=== PATIENT | female | born 1985 | race Caucasian/White ===

== ENCOUNTER 2025-01-05 17:32 | Inpatient (IN) | payer BC, SELFPAY ==
--- OUTSIDE RECORDS SUMMARY | 2012-01-14 07:30 | XMS_ITS | Encounter Summary ---
Author Organization [facility] Address [address], [address] [place] [address] Care Team Providers Care Paper Cone Machine Operator Name Role Phone Unavailable Primary Care Provider Unavailabl e Encounter Details Date Type Department Care Team (Late st Contact Info) Description 01/14/2012 7:30 AM EDT Hospital Encounter [facility] [address] [phone] Ismael Castle MD 27 [facility] [address] [place] [phone] Social History Tobacco Use Types Packs/Day Years [...]
--- OUTSIDE RECORDS SUMMARY | 2025-01-05 18:10 | XMS_ITS | Clinical Summary ---
Author Organization [facility] Address [address], [address] [place] [address] Care Team Providers Care Electrical Prospecting Operator Name Role Phone Unavailable Primary Care Provider Unavailabl e Allergies No known active allergies Medications Vit-Fe Fumarate-FA ( MULTIVITAMIN) 27-1 MG TABS tablet Take 1 tablet by mouth daily. Active docusate sodium 100 MG CAPS Take 100 mg by mouth 2 times daily as needed for Constipatio n. 30 capsule 0 04/12/2012 Active ibuprofen (ADVIL;MOTRIN) 600 MG tablet Take 1 tablet by mouth every 6 hours as needed for Pain (For mild pain level 1-3). 120 tablet 0 04/12/2012 Active ferrous sulfate 325 (65 FE) MG tabletIndication s:Routine follow-up Take 325 mg by mouth daily (with breakfast). Active Active Problems Problem Noted Date Diagnosed Date Routine follow-up 05/20/2012 Immunizations Immunization Administration Dates Next Due Influenza Virus Vaccine 04/11/2012 TDaP, ADACEL (age 10y-64y), BOOSTRIX (age 10y+), IM, 0.5mL 04/12/2012 Family History Medical History Relation Name Comments Heart Disease Father Cancer Maternal Grandfather Cancer Maternal Grandmother Diabetes Maternal Grandmother Relation Name Status Comments Father Maternal Grandfather Maternal Grandmother Social History Tobacco Use Types Packs/Day Years Used Date Smoking Tobacco: Former Cigarettes 0.3 6 Smokeless Tobacco: Never Tobacco Cessation:Ready to Q uit: No; Counseling Given: No Alcohol Use Standard Drinks/Week Comments No 0 (1 standard drink = 0.6 oz pur e alcohol) Comments No Sex and Gender Information Value Date Recorded Sex Assigned at Not on file Legal Sex Female 12:26 PM EST Gender Identity Not on file Sexual Orientation Not on file Last Filed Vital Signs Vital Sign Reading Time Taken Comments Blood Pressure 122/80 05/20/2012 3:40 PM EST Pulse 89 04/12/2012 12:30 PM EST Temperature 36.7 C (98 F) 04/12/2012 12:30 PM EST Respiratory Rate 18 04/12/2012 12:30 PM EST Oxygen Saturation 96% 04/09/2012 12:37 PM EST Inhaled Oxygen Concentration - - Weight 120.2 kg (265 lb) 05/20/2012 3:40 PM EST Height 165.1 cm (5' 5 ) 05/20/2012 3:40 PM EST Body Mass Index 44.1 05/20/2012 3:40 PM EST Plan of Treatment Not on file Advance Directives * Full Code (Latest Code Status on File) Date Activated Date Inactivated Comments 04/09/2012 12:29 PM 04/12/2012 6:06 PM * Full Code Date Activated Date Inactivated Comments 04/09/2012 6:47 AM 04/09/2012 12:29 PM
--- OUTSIDE RECORDS SUMMARY | 2025-01-05 18:10 | XMS_ITS | Patient Health Record ---
Author Organization [facility] [place] Address [address] [place] [address] Care Team Providers Care Nutritionist Public Health Name Role Phone Cheyanne Timmons Primary Care Provider Allergies Allergen (clinical drug ingredient) Drug/Non Drug Allergy documented on EMR Reaction Allergy Type Onset Date Status chlorhexidine Chlorhexidine Gluconate hives Drug Allergy Active Reason For Referral No Information Medications Medication SIG (Take, Route, Frequency, Duration) Notes Start Date End Date Status Ondansetron HCl 4 MG 1 tablet Orally BID prn; Duration: 10 days 02/24/2024 Active FLUoxetine HCl 40 MG TAKE 1 CAPSULE BY M OUTH EVERY DAY FOR 90 DAYS; Duration: 30 Active Omeprazole 40 MG TAKE 1 CAPSULE BY MO UTH 30 MINUTES BEFORE MORNING MEAL EVERY DAY FOR 30 DAYS; Duration: 30 Active Excedrin Migraine 250-250-65 MG 2 tablets Orally Once a day Active Amitriptyline HCl 25 MG TAKE 1 TABLET BY MOUTH EVERY DAY AT BEDTIME FOR 30 DAYS; Duration: 30 Active Melatonin 5 MG 2 tablet in the even ing Orally at bedtime Active Social History Tobacco Use: Social History Observation Description Date Details (start date - stop date) Current Smoker 08/07/2005 - NA Tobacco Use/Smoking Question Answer Notes Patient is a current smoker When did you start smoking? 08/07/2005 How often do you smoke cigarettes? every day How many cigarettes a day do you smoke? 6-10 How soon after you wake up do you smoke your fir st cigarette? 6-30 minutes Are you interested in quitting? Not ready to shayan t Alcohol Screen (Audit-C) Question Answer Notes Did you have a drink containing alcohol in the p ast year? No Points 0 Interpretation Negative AUDIT-C (Standard) Question Answer Notes Did you have a drink containing alcohol in the p ast year? No Points 0 Interpretation Negative Problems Problem Type SNOMED Code ICD Code Onset Dates Problem Status W/U Status Risk Notes Problem Nervous system and sense organ diseases (185947225) Personal history of other diseases of the nervous system and sense organs (Z86.69) Active confirmed Problem Obesity (160822193) Obesity (E66.9) Active confirmed Problem Anxiety (38305931) Anxiety (F41.9) Active confirmed Problem Arthritis (3496697) Arthritis (M19.90) Active confirmed Problem Depression (960780155) Depression (F32.9) Active confirmed Problem Insomnia (728215832) Insomnia (G47.00) Active confirmed Problem Migraine (18830988) Migraine (G43.909) Active confirmed Problem Acute sinusitis (84670416) Acute sinusitis (J01.90) Active confirmed Problem Current smoker (60012377) Current smoker (F17.200) Active confirmed Problem Restless legs (80387092) Restless legs (G25.81) Active confirmed Problem Irregular heart beat (512183948) Irregular heart beat (I49.9) Active confirmed Problem Body mass index 40+ - morbidly obese (270389057) BMI 60.0-69.9, adult (Z68.44) Active confirmed Problem Annual wellness visit (652129130211586 ) Wellness examination (Z00.00) Active confirmed Problem Gastro-esophagea l reflux disease (400418262) Gastro-esophage al reflux disease (K21.9) Active confirmed Problem Disease caused by Severe acute respiratory syndrome coronavirus 2 (disorder) (652680062) COVID-19 virus infection (U07.1) Active confirmed Problem Low back pain (878083746) Low back pain, unspecified (M54.50) Active confirmed Vital Signs Blood pressure diastolic 78 mm Hg 02/24/2024 Height 65 in 02/24/2024 Blood pressure systolic 130 mm Hg 02/24/2024 Weight 428.4 lbs 02/24/2024 BMI 71.28 kg/m2 02/24/2024 Encounters Encounter Location Date Provider Diagnosis [facility] [address] [place] [address] 02/24/2024 Cheyanne Timmons Migraine G43.909 [facility] [address] [place] [address] 02/24/2024 Cheyanne Timmons Wellness examination Z00.00 [facility] [address] [place] [address] 02/26/2024 Cheyanne Timmons Assessments Encounter Date Diagnosis (ICD Code) Assessment Notes Treatment Notes Treatment Clinical Notes Section Notes 02/24/2024 Migraine (ICD-10 - G43.909) Toradol and Norflex IM samples Nurtec if meds not helping, fu , discussed imaging 02/24/2024 Wellness examination (ICD-10 - Z00.00) Plan Of Treatment Pending Test Test Name Order Date CMP (COMPLETE METABOLIC PANEL) 4 HEMOGLOBIN A1C (GLYCO) 02/24/2024 INSULIN, TOTAL 02/24/2024 LIPID PANEL (CHOL/TRIG/HDL/LDL) 02/24/20 24 CBC WITH DIFF 02/24/2024 THYROID PANEL (T4/TSH/FREE T3) 4 Insurance Providers Payer Name Payer Address Payer Phone Subscriber Number Group Number Insured Name Patient Relationship to Insured Coverage Start Date Coverage End Date [employer] PPO PLUS LOCAL PLAN [address] [place] [address] [id number] Tejinder Zee Spouse - patient is the spouse of the insured Medications Administered Medication Instructions Date of Administration Dosage Notes Ketorolac Tromethamine 02/24/2024 60 mg Orphenadrine Citrate 02/24/2024 60 mg Medical (General) History Medical History History ICD Code Obesity E66.9 Irregular heart beat I49.9 BMI 60.0-69.9, adult Z68.44 Restless legs G25.81 COVID-19 virus infection U07.1 Insomnia G47.00 Gastro-esophageal reflux disease K21.9 Migraine G43.909 Wellness examination Z00.00 Low back pain, unspecified M54.50 Personal history of other diseases of th e nervous system and sense organs Z86.69 Arthritis M19.90 Depression F32.9 Anxiety F41.9 Current smoker F17.200 Surgical History Surgery Date(Month/Year) gallbladder removal tonsillectomy x2
[2025-01-05 18:13] VITALS: BP 126/84; PULSE 122; TEMP 36.8; O2SAT 98; BMI 70.7
--- NOTE | 2025-01-05 21:25 | XR_ITS ---
The [address] [address] Patient Name: TUCKER KIM MRN: [id number] date: 1985 Sex: F Assigned Patient Location: ER Current Patient Location: ER Accession/Order Number: [id number] Exam Date: 01/05/2025 21:48 Report Date: 01/05/2025 22:01 At the request of: SARAH DOUGLASS Procedure: XR tibia fibula LT 2V XR tibia fibula LT 2V 01/05/2025 9:55 PM SIGNS AND SYMPTOMS: ^Cellulitis, leg pain PROTOCOL: Frontal and lateral radiograph of the left tibia and fibula COMPARISON: None FINDINGS: There is mild narrowing of the medial weightbearing joint space. There is no fracture or dislocation. There is diffuse soft tissue swelling of the left leg. XR/XR tibia fibula LT 2V IMPRESSION: There is diffuse soft tissue swelling of the left leg consistent with a history of sinusitis. No radiographic evidence of ostomy myelitis. Impression dictated by: Bran Mcgarry M.D. 01/05/2025 10:01 PM Dictation Location: [place] [address] Electronically authenticated by: [id number] Y Date: 01/05/2025 22:01
[2025-01-05 21:39] VITALS: BP 139/97; PULSE 136; O2SAT 99
[2025-01-05 21:40] VITALS: O2SAT 99
--- NOTE | 2025-01-05 21:41 | PC.NURSE ---
LLE red with swelling and warm to the touch
--- NOTE | 2025-01-05 21:46 | ED.GENADUL1 ---
Documented by User: RAFAT Flores 01/05/25 23:40 HPI HPI - General Adult General Chief complaint: Extremity Problem, Nontraumatic Stated complaint: INFECTION IN LEFT LEG Time Seen by Provider: 01/05/25 18:24 Source: patient History of Present Illness HPI narrative: Patient is a 39-year-old female with a PMH of depression and migraines that presents to the emergency department with complaints of left leg pain and swelling that started around her ankle yesterday and has now traveled up her posterior calf, but just below her knee. She states that she has been feeling feverish and having cold sweats, but her thermometer has not worked to check her temperature. She denies any trauma to the leg. Related Data Home Medications ?Medication ?Instructions ?Recorded ?Confirmed amitriptyline 25 mg tablet 25 mg PO BEDTIME 01/05/25 01/05/25 fluoxetine 40 mg capsule 40 mg PO DAILY 01/05/25 01/05/25 omeprazole 40 mg capsule,delayed 40 mg PO DAILY 01/05/25 01/05/25 release Allergies Allergy/AdvReac Type Severity Reaction Status Date / Time chlorhexidine Allergy Severe Hives Verified 01/05/25 18:18 Opioid HPI Opioid Management Most Recent Opioid Data: Last ORT Total Score 1 01/05/25, 23:13 Last ORT Risk Category Low Risk 01/05/25, 23:13 Review of Systems ROS Status of ROS 10 or more systems reviewed and unremarkable except as noted in history and below PFSH PFSH Surgical History (Updated 01/05/25 @ 23:10 by Natalia Aranda) History of ?Z98.891 - History of uterine scar from previous surgery (ICD-10) Family History (Updated 01/05/25 @ 23:11 by Natalia Aranda) Other Family history of CHF (congestive heart failure) Family history of COPD (chronic obstructive pulmonary disease) Family history of hypertension Family history of myocardial infarction Social History (Updated 01/05/25 @ 23:12 by Natalia Aranda) Within the past year, how often did you have a drink containing alcohol: never Score interpretation: A score less than 3 is consistent with normal alcohol consumption. 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 Are you now , , , , never or living with a partner: In a typical week, how many times do you talk on the telephone with family, friends, or neighbors: 3 or more times per week How often do you get together with friends or relatives: 3 or more times per week Little interest or pleasure in doing things: not at all Feeling down, depressed, or hopeless: not at all Feel stressed/tense/nervous/anxious/difficulty sleeping: not at all Do you think of yourself as: straight/heterosexual Gender Identity: female Exam Narrative Exam Narrative: General: No distress, age-appropriate Skin: Warm, dry, no pallor. No rash. See below musculoskeletal, edema and erythema left lower extremity Head: Normocephalic, atraumatic. Neck: Supple, non-tender. Eye: Pupils are equal, round and EOMI. No scleral icterus. Ears, Nose, Mouth, and Throat: No nasal mucosal hypertrophy. Oral mucosa is moist, no posterior oropharynx erythema, uvula is mid-line Cardiovascular: Regular Rate and Rhythm without murmur, gallop or rub. Respiratory: No accessory muscle use or respiratory distress. Lungs are clear to auscultation, no wheezing, rales or rhonchi Chest Wall: no tenderness Back: No midline thoracic or lumbar vertebral tenderness. Musculoskeletal: Full ROM of all extremities, left leg edema and erythema starting at midfoot and extending up to just inferior to the knee. Scattered blisters noted. None appear open or draining. No pitting edema. GI: Abdomen is soft, non-distended, non tender to palpation. No masses appreciated. No rebound, guarding, or rigidity noted. Neurological: A&O x4. No cranial nerve dysfunction observed. No truncal ataxia. Moves all extremities. Sensation intact. Psychiatric: Cooperative and interactive. Normal mood and affect. Constitutional Vital Signs, click to edit/add: Last Vital Signs Temp 99.1 F 01/05/25 23:13 Pulse 117 H 01/05/25 23:13 Resp 20 01/05/25 23:26 BP 128/85 01/05/25 23:13 Pulse Ox 96 01/05/25 23:13 O2 Del Method Room Air 01/05/25 23:26 Course Vital Signs Vital signs: Vital Signs Temperature 98.3 F 01/05/25 18:13 Pulse Rate 122 H 01/05/25 18:13 Respiratory Rate 24 H 01/05/25 18:13 Blood Pressure 126/84 01/05/25 18:13 Pulse Oximetry 98 01/05/25 18:13 Oxygen Delivery Method Room Air 01/05/25 18:13 Temperature 99.1 F 01/05/25 23:13 Pulse Rate 117 H 01/05/25 23:13 Respiratory Rate 20 01/05/25 23:26 Blood Pressure 128/85 01/05/25 23:13 Pulse Oximetry 96 01/05/25 23:13 Oxygen Delivery Method Room Air 01/05/25 23:26 Medical Decision Making MDM Narrative Medical decision making narrative: This is a 39-year-old female that presents with complaints of left leg pain, swelling, and redness that started yesterday. She started feeling feverish and having cold sweats and then started to notice some redness/swelling around her foot and ankle that today has now extended up past her calf and just below her knee. Her BP is hypertensive on arrival, she is tachycardic in the 120s. Respirations in the mid 20s. Percent O2 saturation on room air. Afebrile. Differential diagnosis includes DVT, cellulitis, necrotizing fasciitis, lymphedema. IV placed on arrival. 2 L normal saline wide open ordered. WBC 17.5. Ultrasound left lower extremity negative for DVT. IV Vanco ordered. X-ray left tib-fib ordered to evaluate for any gas. BMP, lactate pending. Blood cultures ordered. I did speak with patient about her condition and recommended admission for IV antibiotics and monitoring. Patient agreeable. Dr. Bryant did speak with Dr. Banks for admission for continued IV antibiotics and monitoring and he did accept patient. Lab Data Labs: Lab Results 01/05/25 01/05/25 Range/Units 21:35 21:48 WBC 17.5 H (4.0-11.0) 10^3/uL RBC 4.87 (4.20-5.40) 10^6/uL Hgb 12.6 (12.0-16.0) g/dL Hct 38.6 (36.0-48.0) % MCV 79.3 L (81.0-99.0) fL MCH 25.9 L (26.7-34.0) pg MCHC 32.6 (29.9-35.2) g/dL RDW 15.8 H (11.0-15.0) % Plt Count 210 (150-450) 10^3/uL MPV 9.7 (9.5-13.5) fL Neut % (Auto) 91.1 H (43.0-75.0) % Lymph % (Auto) 5.8 L (20.5-60.0) % [place] % (Auto) 2.5 (1.7-12.0) % Eos % (Auto) 0.0 L (0.9-7.0) % Baso % (Auto) 0.2 (0.2-2.0) % Neut # (Auto) 16.0 H (1.4-6.5) 10^3/uL Lymph # (Auto) 1.0 L (1.2-3.8) 10^3/uL [place] # (Auto) 0.4 (0.3-0.8) 10^3/uL Eos # (Auto) 0.0 (0.0-0.7) 10^3/uL Baso # (Auto) 0.0 (0.0-0.1) 10^3/uL Abs Immat Gran (auto) 0.07 H (0.00-0.03) 10^3/uL Imm/Tot Granulo (auto) 0.4 (0.0-0.5) % Sodium 135 L (136-145) mmol/L Potassium 3.4 L (3.5-5.1) mmol/L Chloride 97 L (98-107) mmol/L Carbon Dioxide 24.6 (21.0-32.0) mmol/L Anion Gap 16.8 BUN 12.0 (7.0-18.0) mg/dL Creatinine 1.18 H (0.55-1.02) mg/dL Est GFR ( Amer) >60 (>=60 mL/min/1.73m^2) Est GFR (Non-Af Amer) 51 L (>=60 mL/min/1.73m^2) BUN/Creatinine Ratio 10.2 Glucose 118 H (74-106) mg/dL Lactate 4.9 H* (0.4-2.0) mmol/L Calcium 8.8 (8.5-10.1) mg/dL Total Bilirubin 0.7 (0.2-1.0) mg/dL AST 29 (15-37) U/L ALT 43 (14-59) U/L Alkaline Phosphatase 90 (46-116) U/L Total Protein 8.2 (6.4-8.2) g/dL Albumin 3.2 L (3.4-5.0) g/dL Globulin 5.0 g/dL Albumin/Globulin Ratio 0.6 Serum HCG, Qual Negative (NEGATIVE) Imaging Data X-Ray Tib/Fib: Attestation: I have reviewed the pertinent imaging results. Radiologist's impression: ITS Impressions Tibia/Fibula X-Ray 01/05/25 21:25 IMPRESSION: There is diffuse soft tissue swelling of the left leg consistent with a history of sinusitis. No radiographic evidence of ostomy myelitis. Impression dictated by: Bran Mcgarry M.D. 01/05/2025 10:01 PM Dictation Location: [place] [address] Electronically authenticated by: [id number] Y Date: 01/05/2025 22:01 Discharge Plan Discharge Chief Complaint: Extremity Problem, Nontraumatic Clinical Impression: Cellulitis Patient Disposition: Admitted As Inpatient Time of Disposition Decision: 22:18 Condition: Fair Discharge Date/Time: 01/05/25 23:00 Documented by User: Benoit Bryant DO 01/06/25 00:40 HPI HPI - General Adult General Chief complaint: Extremity Problem, Nontraumatic Stated complaint: INFECTION IN LEFT LEG Time Seen by Provider: 01/05/25 18:24 Related Data Home Medications ?Medication ?Instructions ?Recorded ?Confirmed amitriptyline 25 mg tablet 25 mg PO BEDTIME 01/05/25 01/05/25 fluoxetine 40 mg capsule 40 mg PO DAILY 01/05/25 01/05/25 omeprazole 40 mg capsule,delayed 40 mg PO DAILY 01/05/25 01/05/25 release Allergies Allergy/AdvReac Type Severity Reaction Status Date / Time chlorhexidine Allergy Severe Hives Verified 01/05/25 18:18 Opioid HPI Opioid Management Most Recent Opioid Data: Last ORT Total Score 1 01/05/25, 23:13 Last ORT Risk Category Low Risk 01/05/25, 23:13 PFSH PFS Surgical History (Updated 01/05/25 @ 23:10 by Natalia Aranda) History of ?Z98.891 - History of uterine scar from previous surgery (ICD-10) Family History (Updated 01/05/25 @ 23:11 by Natalia Aranda) Other Family history of CHF (congestive heart failure) Family history of COPD (chronic obstructive pulmonary disease) Family history of hypertension Family history of myocardial infarction Social History (Updated 01/05/25 @ 23:12 by Natalia Aranda) Within the past year, how often did you have a drink containing alcohol: never Score interpretation: A score less than 3 is consistent with normal alcohol consumption. 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 Are you now , , , , never or living with a partner: In a typical week, how many times do you talk on the telephone with family, friends, or neighbors: 3 or more times per week How often do you get together with friends or relatives: 3 or more times per week Little interest or pleasure in doing things: not at all Feeling down, depressed, or hopeless: not at all Feel stressed/tense/nervous/anxious/difficulty sleeping: not at all Do you think of yourself as: straight/heterosexual Gender Identity: female Exam Constitutional Vital Signs, click to edit/add: Last Vital Signs Temp 99.1 F 01/05/25 23:13 Pulse 117 H 01/05/25 23:13 Resp 20 01/05/25 23:26 BP 128/85 01/05/25 23:13 Pulse Ox 96 01/05/25 23:13 O2 Del Method Room Air 01/05/25 23:26 Course Vital Signs Vital signs: Vital Signs Temperature 98.3 F 01/05/25 18:13 Pulse Rate 122 H 01/05/25 18:13 Respiratory Rate 24 H 01/05/25 18:13 Blood Pressure 126/84 01/05/25 18:13 Pulse Oximetry 98 01/05/25 18:13 Oxygen Delivery Method Room Air 01/05/25 18:13 Temperature 99.1 F 01/05/25 23:13 Pulse Rate 117 H 01/05/25 23:13 Respiratory Rate 20 01/05/25 23:26 Blood Pressure 128/85 01/05/25 23:13 Pulse Oximetry 96 01/05/25 23:13 Oxygen Delivery Method Room Air 01/05/25 23:26 Medical Decision Making MDM Narrative Medical decision making narrative: This is a 39-year-old female that presents with complaints of left leg pain, swelling, and redness that started yesterday. She started feeling feverish and having cold sweats and then started to notice some redness/swelling around her foot and ankle that today has now extended up past her calf and just below her knee. Her BP is hypertensive on arrival, she is tachycardic in the 120s. Respirations in the mid 20s. Percent O2 saturation on room air. Afebrile. Differential diagnosis includes DVT, cellulitis, necrotizing fasciitis, lymphedema. IV placed on arrival. 2 L normal saline wide open ordered. WBC 17.5. Ultrasound left lower extremity negative for DVT. IV Vanco ordered. X-ray left tib-fib ordered to evaluate for any gas. BMP, lactate pending. Blood cultures ordered. I did speak with patient about her condition and recommended admission for IV antibiotics and monitoring. Patient agreeable. Dr. Bryant did speak with Dr. Banks for admission for continued IV antibiotics and monitoring and he did accept patient. ATTENDING ADDENDUM, Dr. Bryant: Patient presents with acute onset of atraumatic left lower extremity erythema, edema, and tenderness. Initially started with her left ankle and is quickly spread to involve the entire distal left lower extremity. Patient presents tachycardic with flulike symptoms. Laboratory studies were obtained which were significant for leukocytosis with a white count of 17 and lactic acidosis of 4.9. For concerns of sepsis, she was empirically treated with IV vancomycin and given 2L bolus normal saline. Blood cultures were sent off. X-rays of the left tib-fib demonstrated no evidence of gas/free air to suggest necrotizing fasciitis. I discussed the patient with Dr. Banks who accepted the admission. Medical Records Medical records reviewed: Yes I reviewed the patient's medical records Lab Data Lab results reviewed: Yes I reviewed the patient's lab results Labs: Lab Results 01/05/25 01/05/25 Range/Units 21:35 21:48 WBC 17.5 H (4.0-11.0) 10^3/uL RBC 4.87 (4.20-5.40) 10^6/uL Hgb 12.6 (12.0-16.0) g/dL Hct 38.6 (36.0-48.0) % MCV 79.3 L (81.0-99.0) fL MCH 25.9 L (26.7-34.0) pg MCHC 32.6 (29.9-35.2) g/dL RDW 15.8 H (11.0-15.0) % Plt Count 210 (150-450) 10^3/uL MPV 9.7 (9.5-13.5) fL Neut % (Auto) 91.1 H (43.0-75.0) % Lymph % (Auto) 5.8 L (20.5-60.0) % [place] % (Auto) 2.5 (1.7-12.0) % Eos % (Auto) 0.0 L (0.9-7.0) % Baso % (Auto) 0.2 (0.2-2.0) % Neut # (Auto) 16.0 H (1.4-6.5) 10^3/uL Lymph # (Auto) 1.0 L (1.2-3.8) 10^3/uL [place] # (Auto) 0.4 (0.3-0.8) 10^3/uL Eos # (Auto) 0.0 (0.0-0.7) 10^3/uL Baso # (Auto) 0.0 (0.0-0.1) 10^3/uL Abs Immat Gran (auto) 0.07 H (0.00-0.03) 10^3/uL Imm/Tot Granulo (auto) 0.4 (0.0-0.5) % Sodium 135 L (136-145) mmol/L Potassium 3.4 L (3.5-5.1) mmol/L Chloride 97 L (98-107) mmol/L Carbon Dioxide 24.6 (21.0-32.0) mmol/L Anion Gap 16.8 BUN 12.0 (7.0-18.0) mg/dL Creatinine 1.18 H (0.55-1.02) mg/dL Est GFR ( Amer) >60 (>=60 mL/min/1.73m^2) Est GFR (Non-Af Amer) 51 L (>=60 mL/min/1.73m^2) BUN/Creatinine Ratio 10.2 Glucose 118 H (74-106) mg/dL Lactate 4.9 H* (0.4-2.0) mmol/L Calcium 8.8 (8.5-10.1) mg/dL Total Bilirubin 0.7 (0.2-1.0) mg/dL AST 29 (15-37) U/L ALT 43 (14-59) U/L Alkaline Phosphatase 90 (46-116) U/L Total Protein 8.2 (6.4-8.2) g/dL Albumin 3.2 L (3.4-5.0) g/dL Globulin 5.0 g/dL Albumin/Globulin Ratio 0.6 Serum HCG, Qual Negative (NEGATIVE) Imaging Data X-Ray Tib/Fib: Radiologist's impression: ITS Impressions Tibia/Fibula X-Ray 01/05/25 21:25 IMPRESSION: There is diffuse soft tissue swelling of the left leg consistent with a history of sinusitis. No radiographic evidence of ostomy myelitis. Impression dictated by: Bran Mcgarry M.D. 01/05/2025 10:01 PM [facility] Electron[facility] authentic[facility] by: [id number] Y Date: 01/05/2025 22:01 Discharge Plan Discharge Chief Complaint: Extremity Problem, Nontraumatic Clinical Impression: Cellulitis Patient Disposition: Admitted As Inpatient Time of Disposition Decision: 22:18 Condition: Fair Discharge Date/Time: 01/05/25 23:00
[2025-01-05 21:55] LABS: Hematocrit 38.6 % (36.0-48.0); Hemoglobin 12.6 g/dL (12.0-16.0); Immature Granulocytes Abs Auto 0.07 10^3/uL (0.00-0.03); Immature Granulocytes Pct Auto 0.4 % (0.0-0.5); Lymphocytes Absolute Auto 1.0 10^3/uL (1.2-3.8); Mean Corpuscular HGB Conc 32.6 g/dL (29.9-35.2); Mean Corpuscular Hemoglobin 25.9 pg (26.7-34.0); Mean Corpuscular Volume 79.3 fL (81.0-99.0); Platelet Count 210 10^3/uL (150-450); Red Blood Count 4.87 10^6/uL (4.20-5.40); White Blood Count 17.5 10^3/uL (4.0-11.0)
[2025-01-05 22:06] LABS: Alanine Aminotransferase 43 U/L (14-59); Albumin Globulin Ratio 0.6; Albumin Level 3.2 g/dL (3.4-5.0); Alkaline Phosphatase 90 U/L (46-116); Anion Gap 16.8; Aspartate Amino Transferase 29 U/L (15-37); Blood Urea Nitrogen 12.0 mg/dL (7.0-18.0); Calcium 8.8 mg/dL (8.5-10.1); Carbon Dioxide 24.6 mmol/L (21.0-32.0); Chloride 97 mmol/L (98-107); Estimated GFR (African America >60 (>=60 mL/min/1.73m^2); Estimated GFR (Non-African Ame 51 (>=60 mL/min/1.73m^2); Globulin 5.0 g/dL; Glucose 118 mg/dL (74-106); Potassium 3.4 mmol/L (3.5-5.1); Sodium 135 mmol/L (136-145); Total Protein 8.2 g/dL (6.4-8.2)
[2025-01-05] MEDS: 0.9 % SODIUM CHLORIDE 1,000 ML 2000 ML IV (22:13)
[2025-01-05] MEDS: HYDROMORPHONE HCL 1 MG/ML CARTRIDGE IV (22:13)
[2025-01-05 22:20] LABS: Lactate/Lactic Acid 4.9 mmol/L (0.4-2.0)
[2025-01-05] MEDS: VANCOMYCIN HCL 2,000 MG in 0.9 % SODIUM CHLORIDE 500 ML 250 MG IV (22:22)
[2025-01-05 23:13] VITALS: BP 128/85; PULSE 117; TEMP 37.3; O2SAT 96; BMI 78.1
[2025-01-05] MEDS: ENOXAPARIN SODIUM 40 MG/0.4 ML SYRINGE SUBQ (23:46)
[2025-01-05] MEDS: AMITRIPTYLINE HCL 25 MG TABLET PO (23:46)
[2025-01-05] MEDS: ACETAMINOPHEN 325 MG TABLET 650 MG PO (23:46)
[2025-01-05] MEDS: METOPROLOL TARTRATE 25 MG TABLET PO (23:46)
[2025-01-06] VITALS (24 sets, daily range): BP systolic 103–127; BP diastolic 65–85; PULSE 95–112; TEMP 36.8–38.3; O2SAT 90–96
[2025-01-06 01:06] LABS: Lactate/Lactic Acid 1.4 mmol/L (0.4-2.0)
[2025-01-06] MEDS: KETOROLAC TROMETHAMINE 30 MG/ML VIAL 15 MG IVP (05:05)
[2025-01-06 05:20] LABS: Hematocrit 36.5 % (36.0-48.0); Hemoglobin 11.8 g/dL (12.0-16.0); Mean Corpuscular HGB Conc 32.3 g/dL (29.9-35.2); Mean Corpuscular Hemoglobin 25.7 pg (26.7-34.0); Mean Corpuscular Volume 79.5 fL (81.0-99.0); Platelet Count 195 10^3/uL (150-450); Red Blood Count 4.59 10^6/uL (4.20-5.40); White Blood Count 15.1 10^3/uL (4.0-11.0)
[2025-01-06 05:37] LABS: Alanine Aminotransferase 36 U/L (14-59); Albumin Globulin Ratio 0.6; Albumin Level 2.8 g/dL (3.4-5.0); Alkaline Phosphatase 85 U/L (46-116); Anion Gap 12.5; Aspartate Amino Transferase 25 U/L (15-37); Blood Urea Nitrogen 11.0 mg/dL (7.0-18.0); Calcium 8.2 mg/dL (8.5-10.1); Carbon Dioxide 26.0 mmol/L (21.0-32.0); Chloride 99 mmol/L (98-107); Estimated GFR (African America >60 (>=60 mL/min/1.73m^2); Estimated GFR (Non-African Ame >60 (>=60 mL/min/1.73m^2); Globulin 4.8 g/dL; Glucose 118 mg/dL (74-106); Potassium 3.5 mmol/L (3.5-5.1); Sodium 134 mmol/L (136-145); Total Protein 7.6 g/dL (6.4-8.2)
[2025-01-06 05:42] LABS: Lactate/Lactic Acid 0.8 mmol/L (0.4-2.0)
--- NOTE | 2025-01-06 08:00 | CM.NOTE ---
Rounds made with Dr. Banks, updated pt with plan of care and reason for admission. Pt inpatient status and will need IV antibiotic, pt verbalizes understanding.
--- NOTE | 2025-01-06 10:07 | PM.HP ---
HPI H&P: HPI History of Present Illness Chief complaint: CELLULITIS Narrative: Mrs. Zee is a 39-year-old female with no significant past medical history who came in with pain, swelling and redness involving the left leg. She was found to have sepsis manifested by high white count, fever, tachycardia and elevated blood pressure as well as elevated lactic acid. Please refer to initial sepsis workup and treatment completed in the emergency room department. Patient is feeling better. No prior history of MRSA. No chest pain palpitation. No abdominal pain, nausea or vomiting Opioid HPI Opioid Management Most Recent Pain and Opioid Data: Last Pain Scale 0 Today, 08:21 Last Pain Assessment Today, 00:48 Last ORT Total Score 1 01/05/25, 23:13 Last ORT Risk Category Low Risk 01/05/25, 23:13 PFSH PFSH Surgical History (Updated 01/05/25 @ 23:10 by Natalia Aranda) History of ?Z98.891 - History of uterine scar from previous surgery (ICD-10) Family History (Updated 01/05/25 @ 23:11 by Natalia Aranda) Other Family history of CHF (congestive heart failure) Family history of COPD (chronic obstructive pulmonary disease) Family history of hypertension Family history of myocardial infarction Social History (Updated 01/05/25 @ 23:12 by Natalia Aranda) Within the past year, how often did you have a drink containing alcohol: never Score interpretation: A score less than 3 is consistent with normal alcohol consumption. 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 Are you now , , , , never or living with a partner: In a typical week, how many times do you talk on the telephone with family, friends, or neighbors: 3 or more times per week How often do you get together with friends or relatives: 3 or more times per week Little interest or pleasure in doing things: not at all Feeling down, depressed, or hopeless: not at all Feel stressed/tense/nervous/anxious/difficulty sleeping: not at all Do you think of yourself as: straight/heterosexual Gender Identity: female Meds Home Medications and Allergies Home Medications ?Medication ?Instructions ?Recorded ?Confirmed ?Type amitriptyline 25 mg tablet 25 mg PO BEDTIME 01/05/25 01/05/25 History fluoxetine 40 mg capsule 40 mg PO DAILY 01/05/25 01/05/25 History omeprazole 40 mg capsule,delayed 40 mg PO DAILY 01/05/25 01/05/25 History release Allergies Allergy/AdvReac Type Severity Reaction Status Date / Time chlorhexidine Allergy Severe Hives Verified 01/05/25 18:18 Exam Narrative Exam Narrative: [pt is awake and alert. oriented to place, time and person, morbidly obese HEENT: [place] conjunctiva and NL buccal mucosa Neck: Supple, no tenderness Endocrine: No Thyromegaly. Vascular: No JVD or carotid bruit. Lymphatic: No cervical lymphadenopathy. Chest: CTA no DTP. Heart RRR, no extra sound or murmur. Abd: Soft, no tenderness, no rebound and no rigidity. Increase abd girth therefore clinically I could not exclude the possibility of intra abd mass or organomegaly. LE: No cyanosis or clubbing, significant swelling, erythema and induration involving the left leg from the knee down to the foot. Palpable dorsalis pedis pulse no cyanosis in her toes. No change in color Neuro: A A O. Nl speech, comprehension and attention. Nl and symetrical motor and tone examination through out. []] Constitutional Vital Signs, click to edit/add: Last Vital Signs Temp 99.4 F 01/06/25 07:53 Pulse 95 H 01/06/25 10:00 Resp 18 01/06/25 08:32 BP 110/75 01/06/25 07:53 Pulse Ox 93 L 01/06/25 08:02 O2 Del Method Room Air 01/06/25 08:02 Results Labs Labs: Short CBC 01/05/25 01/06/25 Range/Units 21:48 05:11 WBC 17.5 H 15.1 H (4.0-11.0) 10^3/uL Hgb 12.6 11.8 L (12.0-16.0) g/dL Hct 38.6 36.5 (36.0-48.0) % Plt Count 210 195 (150-450) 10^3/uL BMP 01/05/25 01/06/25 21:35 05:11 Sodium 135 L 134 L Potassium 3.4 L 3.5 Chloride 97 L 99 Carbon Dioxide 24.6 26.0 BUN 12.0 11.0 Creatinine 1.18 H 0.93 Glucose 118 H 118 H Calcium 8.8 8.2 L Liver Function 01/05/25 01/06/25 Range/Units 21:35 05:11 Total Bilirubin 0.7 0.5 (0.2-1.0) mg/dL AST 29 25 (15-37) U/L ALT 43 36 (14-59) U/L Alkaline Phosphatase 90 85 (46-116) U/L Albumin 3.2 L 2.8 L (3.4-5.0) g/dL Assessment and Plan Assessment and Plan (1) Sepsis: (2) SALLY (acute kidney injury): (3) Hypokalemia: Plan Sepsis present on admission manifested by tachycardia, fever, leukocytosis and elevated lactic acid Left leg cellulitis from the knee down to the foot, anterior, lateral, medial and posterior. No clinical evidence of superficial abscess Palpable dorsalis pedis pulse. Possibility of compartment syndrome less likely Sepsis workup and management completed including IV fluid infusion and initiation of antibiotic I could not tell whether patient has MRSA or not. Continue vancomycin and ceftriaxone. No abscess formation to suggest anaerobic infection Venous ultrasound rule out DVT. If no improvement over the next 24 hours I would recommend CTA leg rule out deep tissue abscess Continue to monitor her pulse Hypokalemia, SALLY secondary to sepsis Resolved DVT prophylaxis according to protocol Lovenox 60 mg twice a day given her weight Obesity Diet, exercise and lifestyle modification will be needed. Patient may benefit from GLP-1. Patient may benefit from a gastric bypass.
[2025-01-06] MEDS: FLUOXETINE HCL 20 MG CAPSULE 40 MG PO (10:08)
[2025-01-06] MEDS: ENOXAPARIN SODIUM 60 MG/0.6 ML SYRINGE SUBQ ×2 (10:10→21:33)
[2025-01-06] MEDS: PANTOPRAZOLE SODIUM 40 MG TABLET.DR PO (10:10)
[2025-01-06] MEDS: VANCOMYCIN HCL 2,000 MG in 0.9 % SODIUM CHLORIDE 500 ML 250 MG IV ×2 (10:11→22:52)
[2025-01-06] MEDS: METOPROLOL TARTRATE 25 MG TABLET 12.5 MG PO ×2 (10:34→21:33)
[2025-01-06] MEDS: ACETAMINOPHEN 325 MG TABLET 650 MG PO ×2 (12:18→17:04)
[2025-01-06] MEDS: AMITRIPTYLINE HCL 25 MG TABLET PO (21:33)
[2025-01-07] VITALS (16 sets, daily range): BP systolic 92–143; BP diastolic 52–89; PULSE 78–110; TEMP 36.6–37.2; O2SAT 91–96
[2025-01-07] MEDS: KETOROLAC TROMETHAMINE 30 MG/ML VIAL 15 MG IVP (00:26)
--- NOTE | 2025-01-07 07:50 | CM.NOTE ---
Rounds made with Dr. Banks, discussed plan of care with pt. No discharge today, pt will need to continue IV antibiotics and awaiting culture results.
--- NOTE | 2025-01-07 09:11 | CT_ITS ---
The [address] [address] Patient Name: TUCKER KIM MRN: [id number] date: 1985 Sex: F Assigned Patient Location: [place] Current Patient Location: [place] Accession/Order Number: [id number] Exam Date: 01/07/2025 09:30 Report Date: 01/07/2025 10:13 At the request of: GEOVANNA AUSTIN MD Procedure: CT lower leg LT wo con CT LEFT LOWER LEG WITHOUT CONTRAST WITH 3-D RECONSTRUCTIONS CLINICAL DATA: Cellulitis of the left lower leg with erythema from the knee to the ankle. COMPARISON: Plain films 01/05/2025 Spiral axial unenhanced images were obtained through the left lower leg from above the knee to the mid foot. Sagittal, coronal and 3-D volume rendered reconstructions were reviewed. This CT exam was performed using one or more following dose reduction techniques: Automated exposure control, adjustment of the mA and/or kV according to patient size, or use of iterative reconstruction technique. No fracture, dislocation or bony destruction is identified in the field of view. There is mild lateral subluxation of patella. There is no significant knee effusion. There is subcutaneous edema and skin thickening at the imaged leg, greater distally where there is also fluid layering over muscles along the anterior and lateral aspect of the ankle. Fluid-containing blisters are also present at the posterior medial ankle. No subcutaneous air or radiopaque foreign bodies are noted. There is no obvious soft tissue abscess within limits of lack of contrast. CT/CT lower leg LT wo con IMPRESSION: NO ACUTE BONY FINDINGS. FINDINGS COMPATIBLE WITH CELLULITIS AND SUBCUTANEOUS EDEMA. THERE IS NO OBVIOUS SOFT TISSUE ABSCESS HOWEVER EVALUATION IS INCOMPLETE WITHOUT CONTRAST. IF THERE IS STILL A FOCAL AREA OF CONCERN, DIRECTED ULTRASOUND COULD BE PERFORMED. BLISTERS AT THE POSTERIOR MEDIAL ANKLE. Impression dictated by: Jaquelin Richmond M.D. 01/07/2025 10:13 AM Dictation Location: [place] [address] Electronically authenticated by: [id number] Y Date: 01/07/2025 10:13
--- NOTE | 2025-01-07 09:13 | PM.PN ---
Progress Note: Subjective Subjective Interval history: Less pain and discomfort. Patient had developed multiple areas of bullous formation. Exam Narrative Exam Narrative: [pt is awake and alert. oriented to place, time and person, morbidly obese HEENT: [place] conjunctiva and NL buccal mucosa Neck: Supple, no tenderness Endocrine: No Thyromegaly. Vascular: No JVD or carotid bruit. Lymphatic: No cervical lymphadenopathy. Chest: CTA no DTP. Heart RRR, no extra sound or murmur. Abd: Soft, no tenderness, no rebound and no rigidity. Increase abd girth therefore clinically I could not exclude the possibility of intra abd mass or organomegaly. LE: No cyanosis or clubbing, significant swelling, erythema and induration involving the left leg from the knee down to the foot. Palpable dorsalis pedis pulse no cyanosis in her toes. No change in color. Patient has developed multiple areas of bullous formation in the anterior, medial and lateral aspect of the left leg just above the ankle. Neuro: A A O. Nl speech, comprehension and attention. Nl and symetrical motor and tone examination through out. []] Constitutional Vital Signs, click to edit/add: Last Vital Signs Temp 98.2 F 01/07/25 08:00 Pulse 88 01/07/25 08:00 Resp 18 01/07/25 08:00 BP 111/77 01/07/25 08:00 Pulse Ox 96 01/07/25 08:00 O2 Del Method Room Air 01/07/25 08:00 Progress Note: A&P Assessment and Plan (1) Sepsis: (2) SALLY (acute kidney injury): (3) Hypokalemia: Plan Sepsis present on admission manifested by tachycardia, fever, leukocytosis and elevated lactic acid, resolving Left leg cellulitis from the knee down to the foot, anterior, lateral, medial and posterior. No clinical evidence of superficial abscess Palpable dorsalis pedis pulse. Possibility of compartment syndrome less likely Sepsis workup and management completed including IV fluid infusion and initiation of antibiotic I could not tell whether patient has MRSA or not. Patient had developed bullous formation in multiple areas. MRSA still a consideration Continue vancomycin and ceftriaxone. Consideration to discontinue ceftriaxone No abscess formation to suggest anaerobic infection Venous ultrasound rule out DVT. Negative for DVT. Ordering CT leg rule out deep tissue abscess Continue to monitor her pulse Pain, pain management. Hypokalemia, SALLY secondary to sepsis Resolved DVT prophylaxis according to protocol Lovenox 60 mg twice a day given her weight Obesity Diet, exercise and lifestyle modification will be needed. Patient may benefit from GLP-1. Patient may benefit from a gastric bypass.
[2025-01-07] MEDS: PANTOPRAZOLE SODIUM 40 MG TABLET.DR PO (09:46)
[2025-01-07] MEDS: ENOXAPARIN SODIUM 60 MG/0.6 ML SYRINGE SUBQ ×2 (09:46→22:04)
[2025-01-07] MEDS: FLUOXETINE HCL 20 MG CAPSULE 40 MG PO (09:46)
[2025-01-07] MEDS: VANCOMYCIN HCL 2,000 MG in 0.9 % SODIUM CHLORIDE 500 ML 250 MG IV ×2 (09:46→22:08)
[2025-01-07] MEDS: OXYCODONE HCL 5 MG TABLET PO ×2 (14:12→22:07)
[2025-01-07] MEDS: AMITRIPTYLINE HCL 25 MG TABLET PO (22:07)
[2025-01-08] VITALS (11 sets, daily range): BP systolic 117–161; BP diastolic 54–93; PULSE 90–117; TEMP 36.3–36.8; O2SAT 92–96
[2025-01-08] MEDS: OXYCODONE HCL 5 MG TABLET PO ×2 (04:06→17:04)
[2025-01-08 07:52] LABS: Anion Gap 13.9; Blood Urea Nitrogen 10.0 mg/dL (7.0-18.0); Calcium 8.2 mg/dL (8.5-10.1); Carbon Dioxide 25.3 mmol/L (21.0-32.0); Chloride 103 mmol/L (98-107); Estimated GFR (African America >60 (>=60 mL/min/1.73m^2); Estimated GFR (Non-African Ame >60 (>=60 mL/min/1.73m^2); Glucose 98 mg/dL (74-106); Potassium 3.2 mmol/L (3.5-5.1); Sodium 139 mmol/L (136-145)
[2025-01-08] MEDS: ENOXAPARIN SODIUM 60 MG/0.6 ML SYRINGE SUBQ ×2 (09:06→22:08)
[2025-01-08] MEDS: FLUOXETINE HCL 20 MG CAPSULE 40 MG PO (09:06)
[2025-01-08] MEDS: PANTOPRAZOLE SODIUM 40 MG TABLET.DR PO (09:06)
--- NOTE | 2025-01-08 09:25 | PM.PN ---
Progress Note: Subjective Subjective Interval history: Less pain and discomfort. Patient had developed multiple areas of bullous formation. Exam Narrative Exam Narrative: [pt is awake and alert. oriented to place, time and person, morbidly obese HEENT: [place] conjunctiva and NL buccal mucosa Neck: Supple, no tenderness Endocrine: No Thyromegaly. Vascular: No JVD or carotid bruit. Lymphatic: No cervical lymphadenopathy. Chest: CTA no DTP. Heart RRR, no extra sound or murmur. Abd: Soft, no tenderness, no rebound and no rigidity. Increase abd girth therefore clinically I could not exclude the possibility of intra abd mass or organomegaly. LE: No cyanosis or clubbing, significant swelling, erythema and induration involving the left leg from the knee down to the foot. Palpable dorsalis pedis pulse no cyanosis in her toes. No change in color. Patient has developed multiple areas of bullous formation in the anterior, medial and lateral aspect of the left leg just above the ankle. 01/08: Some improvement noted in the degree of erythema, induration and tenderness of the infection compared to admission to [facility] Neuro: A A O. Nl speech, comprehension and attention. Nl and symetrical motor and tone examination through out. []] Constitutional Vital Signs, click to edit/add: Last Vital Signs Temp 98.1 F 01/08/25 06:52 Pulse 109 H 01/08/25 08:00 Resp 18 01/08/25 07:37 BP 117/54 01/08/25 07:36 Pulse Ox 95 01/08/25 07:36 O2 Del Method Room Air 01/08/25 07:36 Progress Note: Objective Labs Labs: [facility] 01/08/25 06:29 Sodium 139 Potassium 3.2 L Chloride 103 Carbon Dioxide 25.3 BUN 10.0 Creatinine 0.95 Glucose 98 Calcium 8.2 L Progress Note: A&P Assessment and Plan (1) Sepsis: (2) SALLY (acute kidney injury): (3) Hypokalemia: Plan Sepsis present on admission manifested by tachycardia, fever, leukocytosis and elevated lactic acid, resolved Quite extensive left leg cellulitis from the knee down to the foot, anterior, lateral, medial and posterior. No clinical evidence of superficial abscess Palpable dorsalis pedis pulse. Possibility of compartment syndrome less likely Sepsis workup and management completed including IV fluid infusion and initiation of antibiotic I could not tell whether patient has MRSA or not. Patient had developed bullous formation in multiple areas. Likely gram positive organism including possibility of MRSA. Continue vancomycin. Discontinue ceftriaxone. Blood cultures pending wound. Wound culture is pending. CT scan does not show any deep tissue abscess Venous ultrasound rule out DVT. Negative for DVT. Continue to monitor her pulse Pain, pain management.] Given the significance of her infection, she may require IV antibiotic on discharge for an extended period of time. Hypokalemia, SALLY secondary to sepsis Additional potassium supplementation. DVT prophylaxis according to protocol Lovenox 60 mg twice a day given her weight Obesity Diet, exercise and lifestyle modification will be needed. Patient may benefit from GLP-1. Patient may benefit from a gastric bypass.
[2025-01-08] MEDS: POTASSIUM CHLORIDE 10 MEQ ER TABLET 20 MEQ PO ×2 (09:54→22:08)
[2025-01-08] MEDS: VANCOMYCIN HCL 2,000 MG in 0.9 % SODIUM CHLORIDE 500 ML 250 MG IV ×2 (09:54→22:09)
[2025-01-08] MEDS: 0.9 % SODIUM CHLORIDE 250 ML 10 ML IV (09:54)
[2025-01-08] MEDS: ACETAMINOPHEN 325 MG TABLET 650 MG PO (17:04)
[2025-01-08] MEDS: AMITRIPTYLINE HCL 25 MG TABLET PO (22:08)
[2025-01-09] MEDS: ACETAMINOPHEN 325 MG TABLET 650 MG PO (00:32)
[2025-01-09 04:00] VITALS: BP 115/73; PULSE 101; TEMP 37.1; O2SAT 95
[2025-01-09] MEDS: OXYCODONE HCL 5 MG TABLET PO ×3 (06:41→23:47)
[2025-01-09 06:59] LABS: Anion Gap 15.0; Blood Urea Nitrogen 8.0 mg/dL (7.0-18.0); Calcium 8.5 mg/dL (8.5-10.1); Carbon Dioxide 25.3 mmol/L (21.0-32.0); Chloride 104 mmol/L (98-107); Estimated GFR (African America >60 (>=60 mL/min/1.73m^2); Estimated GFR (Non-African Ame 58 (>=60 mL/min/1.73m^2); Glucose 88 mg/dL (74-106); Potassium 3.3 mmol/L (3.5-5.1); Sodium 141 mmol/L (136-145)
--- NOTE | 2025-01-09 08:44 | PM.PN ---
Progress Note: Subjective Subjective Interval history: Less pain and discomfort. Patient had developed multiple areas of bullous formation. Exam Narrative Exam Narrative: [pt is awake and alert. oriented to place, time and person, morbidly obese HEENT: [place] conjunctiva and NL buccal mucosa Neck: Supple, no tenderness Endocrine: No Thyromegaly. Vascular: No JVD or carotid bruit. Lymphatic: No cervical lymphadenopathy. Chest: CTA no DTP. Heart RRR, no extra sound or murmur. Abd: Soft, no tenderness, no rebound and no rigidity. Increase abd girth therefore clinically I could not exclude the possibility of intra abd mass or organomegaly. LE: No cyanosis or clubbing, quite extensive and significant swelling, erythema and induration involving the left leg from the knee down to the foot. Palpable dorsalis pedis pulse strongly no cyanosis in her toes. No change in color. Patient has developed multiple areas of bullous formation in the anterior, medial and lateral aspect of the left leg just above the ankle. 01/08: Some improvement noted in the degree of erythema, induration and tenderness of the infection compared to admission to state Neuro: A A O. Nl speech, comprehension and attention. Nl and symetrical motor and tone examination through out. []] Constitutional Vital Signs, click to edit/add: Last Vital Signs Temp 98.8 F 01/09/25 04:00 Pulse 101 H 01/09/25 04:00 Resp 18 01/09/25 04:00 BP 115/73 01/09/25 04:00 Pulse Ox 95 01/09/25 04:00 O2 Del Method Room Air 01/09/25 04:00 Progress Note: Objective Labs Labs: [facility] 01/09/25 06:01 Sodium 141 Potassium 3.3 L Chloride 104 Carbon Dioxide 25.3 BUN 8.0 Creatinine 1.06 H Glucose 88 Calcium 8.5 Progress Note: A&P Assessment and Plan (1) Sepsis: (2) SALLY (acute kidney injury): (3) Hypokalemia: Plan Sepsis present on admission manifested by tachycardia, fever, leukocytosis and elevated lactic acid, resolved Quite extensive left leg cellulitis from the knee down to the foot, anterior, lateral, medial and posterior. No clinical evidence of superficial abscess Palpable dorsalis pedis pulse. Possibility of compartment syndrome less likely Sepsis workup and management completed including IV fluid infusion and initiation of antibiotic I could not tell whether patient has MRSA or not. Patient had developed bullous formation in multiple areas. Likely gram positive organism including possibility of MRSA. Continue vancomycin. Discontinued ceftriaxone. Blood cultures pending wound. Wound culture is pending. CT scan does not show any deep tissue abscess Venous ultrasound rule out DVT. Negative for DVT. Continue to monitor her pulse Pain, pain management.] Given the significance of her infection, she may require IV antibiotic on discharge for an extended period of time. Hypokalemia, SALLY secondary to sepsis Additional potassium supplementation. DVT prophylaxis according to protocol Lovenox 60 mg twice a day given her weight Obesity Diet, exercise and lifestyle modification will be needed. Patient may benefit from GLP-1. Patient may benefit from a gastric bypass.
[2025-01-09] MEDS: FLUOXETINE HCL 20 MG CAPSULE 40 MG PO (09:14)
[2025-01-09] MEDS: POTASSIUM CHLORIDE 10 MEQ ER TABLET 40 MEQ PO (09:14)
[2025-01-09] MEDS: PANTOPRAZOLE SODIUM 40 MG TABLET.DR PO (09:14)
[2025-01-09] MEDS: ENOXAPARIN SODIUM 60 MG/0.6 ML SYRINGE SUBQ ×2 (09:15→21:10)
[2025-01-09] MEDS: VANCOMYCIN HCL 2,000 MG in 0.9 % SODIUM CHLORIDE 500 ML 250 MG IV ×2 (09:18→21:14)
[2025-01-09 09:19] VITALS: BP 124/85; PULSE 99; TEMP 36.9; O2SAT 94
[2025-01-09 13:00] VITALS: BP 125/85; PULSE 104; TEMP 36.8; O2SAT 92
[2025-01-09 15:31] VITALS: BP 137/94; PULSE 120; TEMP 37; O2SAT 97
[2025-01-09] MEDS: POTASSIUM CHLORIDE 10 MEQ ER TABLET 20 MEQ PO (17:40)
[2025-01-09 19:35] VITALS: BP 141/83; PULSE 98; TEMP 36.8; O2SAT 93
[2025-01-09] MEDS: AMITRIPTYLINE HCL 25 MG TABLET PO (21:10)
[2025-01-09 23:46] VITALS: BP 145/92; PULSE 106; TEMP 36.7; O2SAT 93
[2025-01-10 04:00] VITALS: BP 124/78; PULSE 102; TEMP 36.8; O2SAT 95
[2025-01-10 05:37] LABS: Hematocrit 33.2 % (36.0-48.0); Hemoglobin 10.4 g/dL (12.0-16.0); Mean Corpuscular HGB Conc 31.3 g/dL (29.9-35.2); Mean Corpuscular Hemoglobin 25.5 pg (26.7-34.0); Mean Corpuscular Volume 81.4 fL (81.0-99.0); Platelet Count 283 10^3/uL (150-450); Red Blood Count 4.08 10^6/uL (4.20-5.40); White Blood Count 11.1 10^3/uL (4.0-11.0)
[2025-01-10 06:04] LABS: Anion Gap 13.8; Blood Urea Nitrogen 6.0 mg/dL (7.0-18.0); Calcium 8.2 mg/dL (8.5-10.1); Carbon Dioxide 25.8 mmol/L (21.0-32.0); Chloride 103 mmol/L (98-107); Estimated GFR (African America >60 (>=60 mL/min/1.73m^2); Estimated GFR (Non-African Ame >60 (>=60 mL/min/1.73m^2); Glucose 118 mg/dL (74-106); Potassium 3.6 mmol/L (3.5-5.1); Sodium 139 mmol/L (136-145)
--- NOTE | 2025-01-10 07:50 | CM.NOTE ---
Rounds made with Dr. Banks, no discharge today continue IV antibiotics. RN updated to upload additional photos today to track progress of leg.
[2025-01-10 08:21] VITALS: BP 115/78; PULSE 99; TEMP 36.5; O2SAT 95
[2025-01-10] MEDS: OXYCODONE HCL 5 MG TABLET PO ×3 (08:25→20:33)
[2025-01-10] MEDS: FLUOXETINE HCL 20 MG CAPSULE 40 MG PO (08:25)
[2025-01-10] MEDS: POTASSIUM CHLORIDE 10 MEQ ER TABLET 40 MEQ PO (08:26)
[2025-01-10] MEDS: PANTOPRAZOLE SODIUM 40 MG TABLET.DR PO (08:26)
[2025-01-10] MEDS: ENOXAPARIN SODIUM 60 MG/0.6 ML SYRINGE SUBQ ×2 (08:26→20:34)
[2025-01-10] MEDS: VANCOMYCIN HCL 2,000 MG in 0.9 % SODIUM CHLORIDE 500 ML 250 MG IV (11:02)
--- NOTE | 2025-01-10 12:06 | P.PN_ITS ---
Progress Note: Subjective Subjective Interval history: Less pain and discomfort. Patient had developed multiple areas of bullous formation. Exam Narrative Exam Narrative: [pt is awake and alert. oriented to place, time and person, morbidly obese HEENT: [place] conjunctiva and NL buccal mucosa Neck: Supple, no tenderness Endocrine: No Thyromegaly. Vascular: No JVD or carotid bruit. Lymphatic: No cervical lymphadenopathy. Chest: CTA no DTP. Heart RRR, no extra sound or murmur. Abd: Soft, no tenderness, no rebound and no rigidity. Increase abd girth therefore clinically I could not exclude the possibility of intra abd mass or organomegaly. LE: No cyanosis or clubbing, quite extensive and significant swelling, erythema and induration involving the left leg from the knee down to the foot. Palpable dorsalis pedis pulse strongly no cyanosis in her toes. No change in color. Patient has developed multiple areas of bullous formation in the anterior, medial and lateral aspect of the left leg just above the ankle. 01/08: Some improvement noted in the degree of erythema, induration and tenderness of the infection compared to admission to state 01/10: No significant improvement over the last 24 hours. Neuro: A A O. Nl speech, comprehension and attention. Nl and symetrical motor and tone examination through out. []] Constitutional Vital Signs, click to edit/add: Last Vital Signs Temp 97.7 F 01/10/25 08:21 Pulse 99 H 01/10/25 08:21 Resp 20 01/10/25 08:21 BP 115/78 01/10/25 08:21 Pulse Ox 95 01/10/25 08:21 O2 Del Method Room Air 01/10/25 08:21 Progress Note: Objective Labs Labs: Short CBC 01/10/25 Range/Units 05:10 WBC 11.1 H (4.0-11.0) 10^3/uL Hgb 10.4 L (12.0-16.0) g/dL Hct 33.2 L (36.0-48.0) % Plt Count 283 (150-450) 10^3/uL BMP 01/10/25 05:10 Sodium 139 Potassium 3.6 Chloride 103 Carbon Dioxide 25.8 BUN 6.0 L Creatinine 1.01 Glucose 118 H Calcium 8.2 L Progress Note: A&P Assessment and Plan (1) Sepsis: (2) SALLY (acute kidney injury): (3) Hypokalemia: Plan Sepsis present on admission manifested by tachycardia, fever, leukocytosis and elevated lactic acid, resolved Quite extensive left leg cellulitis from the knee down to the foot, anterior, lateral, medial and posterior. No clinical evidence of superficial abscess Please see picture taken by nursing staff. Palpable dorsalis pedis pulse. Possibility of compartment syndrome less likely White count is drifting down from 17-11,000. Resolution of her temperature. Sepsis workup and management completed including IV fluid infusion and initiation of antibiotic I could not tell whether patient has MRSA or not. Patient had developed bullous formation in multiple areas. Likely gram positive organism including possibility of MRSA. Continue vancomycin. Discontinued ceftriaxone. Blood cultures pending wound. Wound culture is pending. CT scan does not show any deep tissue abscess Venous ultrasound rule out DVT. Negative for DVT. Continue to monitor her pulse Pain, pain management.] Given the significance of her infection, she may require IV antibiotic on discharge for an extended period of time. Hypokalemia, SALLY secondary to sepsis Additional potassium supplementation. DVT prophylaxis according to protocol Lovenox 60 mg twice a day given her weight Obesity Diet, exercise and lifestyle modification will be needed. Patient may benefit from GLP-1. Patient may benefit from a gastric bypass.
[2025-01-10 13:00] VITALS: BP 116/78; PULSE 110; TEMP 37.4; O2SAT 95
[2025-01-10] MEDS: ERTAPENEM SODIUM 1 GM in 0.9 % SODIUM CHLORIDE 50 ML IV (14:49)
[2025-01-10 16:00] VITALS: BP 122/73; PULSE 103; TEMP 36.9; O2SAT 96
[2025-01-10 20:00] VITALS: BP 127/83; PULSE 108; TEMP 37; O2SAT 92
[2025-01-10] MEDS: ACETAMINOPHEN 325 MG TABLET 650 MG PO (20:33)
[2025-01-10] MEDS: LINEZOLID IN DEXTROSE 5% 600 MG/300 ML PIGGYBACK 300 MG IV (20:36)
[2025-01-11 03:57] VITALS: BP 129/83; PULSE 98; TEMP 36.7; O2SAT 90
[2025-01-11 08:00] VITALS: BP 140/79; PULSE 95; TEMP 36.5; O2SAT 92
[2025-01-11] MEDS: LINEZOLID IN DEXTROSE 5% 600 MG/300 ML PIGGYBACK 300 MG IV ×2 (08:16→21:22)
[2025-01-11] MEDS: ENOXAPARIN SODIUM 60 MG/0.6 ML SYRINGE SUBQ (08:18)
[2025-01-11] MEDS: ACETAMINOPHEN 325 MG TABLET 650 MG PO ×2 (08:19→18:13)
[2025-01-11] MEDS: OXYCODONE HCL 5 MG TABLET PO ×2 (08:19→18:13)
[2025-01-11] MEDS: PANTOPRAZOLE SODIUM 40 MG TABLET.DR PO (08:19)
--- NOTE | 2025-01-11 08:55 | CM.NOTE ---
Rounds made with Dr. Banks, discussed discharge planning for tomorrow. Pt will come to [facility] for [facility] IV antibiotics. Pt will also need PICC line for antibiotic therapy. Updated Bailey on need for PICC and discharge 01/12.
--- NOTE | 2025-01-11 09:00 | PC.NURSE ---
Dr. Banks aware that patient has not had a BM in 1 week
--- NOTE | 2025-01-11 09:44 | PM.PN ---
Progress Note: Subjective Subjective Interval history: Significant and noticeable less pain and discomfort. Significant reduction in pain intensity compared to yesterday. Exam Narrative Exam Narrative: [pt is awake and alert. oriented to place, time and person, morbidly obese HEENT: [place] conjunctiva and NL buccal mucosa Neck: Supple, no tenderness Endocrine: No Thyromegaly. Vascular: No JVD or carotid bruit. Lymphatic: No cervical lymphadenopathy. Chest: CTA no DTP. Heart RRR, no extra sound or murmur. Abd: Soft, no tenderness, no rebound and no rigidity. Increase abd girth therefore clinically I could not exclude the possibility of intra abd mass or organomegaly. LE: No cyanosis or clubbing, quite extensive and significant swelling, erythema and induration involving the left leg from the knee down to the foot. Palpable dorsalis pedis pulse strongly no cyanosis in her toes. No change in color. Patient has developed multiple areas of bullous formation in the anterior, medial and lateral aspect of the left leg just above the ankle. 01/08: Some improvement noted in the degree of erythema, induration and tenderness of the infection compared to admission to state 01/10: No significant improvement over the last 24 hours. 01/11: Noticeable improvement in tenderness, swelling, redness and seepage compared to 2 days ago. Neuro: A A O. Nl speech, comprehension and attention. Nl and symetrical motor and tone examination through out. []] Constitutional Vital Signs, click to edit/add: Last Vital Signs Temp 97.7 F 01/11/25 08:00 Pulse 95 H 01/11/25 08:00 Resp 18 01/11/25 03:57 BP 140/79 01/11/25 08:00 Pulse Ox 92 L 01/11/25 08:00 O2 Del Method Room Air 01/11/25 08:00 Progress Note: A&P Assessment and Plan (1) Sepsis: (2) SALLY (acute kidney injury): (3) Hypokalemia: Plan Sepsis present on admission manifested by tachycardia, fever, leukocytosis and elevated lactic acid, resolved Quite extensive left leg cellulitis from the knee down to the foot, anterior, lateral, medial and posterior. No clinical evidence of superficial abscess Noticeable improvement over the last 24 hours in terms of the swelling, redness and seepage. Palpable dorsalis pedis pulse. Possibility of compartment syndrome less likely White count is drifting down from 17-11,000. Resolution of her temperature. Sepsis workup and management completed including IV fluid infusion and initiation of antibiotic I could not tell whether patient has MRSA or not. Patient had developed bullous formation in multiple areas. Likely gram positive organism including possibility of MRSA. Continue vancomycin. Discontinued ceftriaxone. Blood cultures pending wound. Wound culture is negative CT scan does not show any deep tissue abscess Venous ultrasound rule out DVT. Negative for DVT. Continue to monitor her pulse Pain, pain management.] I changed her vancomycin to Zyvox in preparation for discharge Continue Invanz. The plan on outpatient daily Invanz infusion. Plan for patient to follow-up with infectious disease. Outpatient wound care. Hypokalemia, SALLY secondary to sepsis Additional potassium supplementation. DVT prophylaxis according to protocol Lovenox 60 mg twice a day given her weight Obesity Diet, exercise and lifestyle modification will be needed. Patient may benefit from GLP-1. Patient may benefit from a gastric bypass. I discussed her case with her at the bedside.
[2025-01-11 12:00] VITALS: BP 154/83; PULSE 88; TEMP 36.7; O2SAT 95
--- NOTE | 2025-01-11 13:00 | CM.NOTE ---
I placed a call to [facility] [phone] and requested prior authorization for Zyvox 600 mg 1 tablet PO Q 12 hrs. The appeals representative stated that the prior authorization could take up to 5 days for a response. Call reference # [id number].
[2025-01-11] MEDS: ERTAPENEM SODIUM 1 GM in 0.9 % SODIUM CHLORIDE 50 ML IV (14:01)
--- NOTE | 2025-01-11 14:11 | CM.NOTE ---
[facility] form completed for outpatient antibiotics and weekly CBC, BMP, and CRP. Faxed to [facility] and copy given to Pharmacy and [facility].
--- NOTE | 2025-01-11 14:30 | PC.NURSE ---
Dr. Banks ok'd with just using a midline, and notified that we will be unable to use a CHG dressing due to allergy. He is ok with using betadine
[2025-01-11 19:49] VITALS: BP 116/74; PULSE 100; TEMP 36.7; O2SAT 96
[2025-01-12] VITALS: BP 131/83; PULSE 101; TEMP 36.7; O2SAT 94
[2025-01-12] MEDS: OXYCODONE HCL 5 MG TABLET PO ×3 (00:12→11:26)
[2025-01-12 03:03] VITALS: BP 112/75; PULSE 98; TEMP 36.8; O2SAT 92
[2025-01-12 05:53] LABS: Hematocrit 34.4 % (36.0-48.0); Hemoglobin 10.7 g/dL (12.0-16.0); Mean Corpuscular HGB Conc 31.1 g/dL (29.9-35.2); Mean Corpuscular Hemoglobin 25.4 pg (26.7-34.0); Mean Corpuscular Volume 81.7 fL (81.0-99.0); Platelet Count 325 10^3/uL (150-450); Red Blood Count 4.21 10^6/uL (4.20-5.40); White Blood Count 9.5 10^3/uL (4.0-11.0)
[2025-01-12 06:10] LABS: Anion Gap 10.1; Blood Urea Nitrogen 7.0 mg/dL (7.0-18.0); Calcium 8.5 mg/dL (8.5-10.1); Carbon Dioxide 29.7 mmol/L (21.0-32.0); Chloride 99 mmol/L (98-107); Estimated GFR (African America >60 (>=60 mL/min/1.73m^2); Estimated GFR (Non-African Ame 57 (>=60 mL/min/1.73m^2); Glucose 99 mg/dL (74-106); Potassium 3.8 mmol/L (3.5-5.1); Sodium 135 mmol/L (136-145)
--- NOTE | 2025-01-12 08:00 | CM.NOTE ---
Preliminary wound culture given to Dr. Banks.
--- NOTE | 2025-01-12 09:23 | CM.NOTE ---
Rounded with . The plan is for discharge home today with follow up in the [facility] clinic. Zyvox oral is currently being denied but we did submit a prior authorization for this yesterday which I will follow up on today. If we can not get the oral approved the patient will need to come to the [facility] clinic in the morning and evening to receive the IV Zyvox. An order for the wound care nurse was also placed for dressing instructions prior to discharge.
--- NOTE | 2025-01-12 09:42 | PM.DS1 ---
DS: Providers Provider Date of admission: 01/05/25 23:00 Primary care physician: CHEYANNE TIMMONS Consults: 01/12/25 Consult to Wound Care Routine Consulting Provider: Osiel Flores Reason for consultation: dressing reccomendation Has provider been notified: Yes DS: Diagnosis Discharge Diagnosis (1) Sepsis: (2) SALLY (acute kidney injury): (3) Hypokalemia: Plan As listed above, below and others that are not listed DS: Summary Hospital Course Hospital Course: Sepsis present on admission manifested by tachycardia, fever, leukocytosis and elevated lactic acid, resolved Quite extensive left leg cellulitis from the knee down to the foot, anterior, lateral, medial and posterior. No clinical evidence of superficial abscess Noticeable improvement over the last 48 hours in terms of the swelling, redness and seepage. Palpable dorsalis pedis pulse. Possibility of compartment syndrome unlikely White count is drifting down from 17-11,000. Resolution of her temperature. Sepsis workup and management completed including IV fluid infusion and initiation of antibiotic I could not tell whether patient has MRSA or not. Patient had developed bullous formation in multiple areas. Likely gram positive organism including possibility of MRSA. Continue vancomycin. Discontinued ceftriaxone. Blood cultures pending wound. Wound culture is negative CT scan does not show any deep tissue abscess Venous ultrasound rule out DVT. Negative for DVT. Continue to monitor her pulse Pain, pain management.] I changed her vancomycin to Zyvox in preparation for discharge Continue Invanz. The plan on outpatient daily Invanz infusion. I discussed her case with Dr. Florence. He is in agreement with the Zyvox and Invanz Plan for patient to follow-up with Dr. Chaudhry in the outpatient setting Outpatient wound care. Unfortunately, her insurance company did not approve oral Zyvox. I submitted preauthorization. Meanwhile we will arrange for patient to have IV Zyvox until her insurance approves oral Zyvox. CBC, BMP and CRP weekly during the duration of IV antibiotic infusion. I made patient aware of potential antibiotic side effects in basic terms including but not limited to serotonin syndrome for which asked patient not to take amitriptyline and SSRI while taking Zyvox. Low blood count, bone marrow suppression, GI symptoms and others. She is in agreement to proceed Midline was inserted yesterday. Midline needs to be removed after patient completes her antibiotic course. Antibiotic course could be shortened or extended by Dr. Florence when he sees her. Anxiety and depression for which patient is on amitriptyline and SSRI. I informed the patient about the potential interaction between Zyvox and her psychiatric medication. She stated that she could easily be stopping these medications. She does not have any acute decompensation of her anxiety. She would resume taking this medication after she completes her Zyvox antibiotic course per Hypokalemia, SALLY secondary to sepsis Additional potassium supplementation. DVT prophylaxis according to protocol Lovenox 60 mg twice a day given her weight Obesity Diet, exercise and lifestyle modification will be needed. Patient may benefit from GLP-1. Patient may benefit from a gastric bypass. Patient has few medical issues as listed above and others that are not listed. All appear to be stable. Patient is doing much better. She wants to go home. I do not have any clear or strong clinical justification to extend inpatient hospitalization. Patient however will require close and frequent monitoring as well as additional work-up, investigation and therapeutic intervention that could take place from this point on post discharge. That is to prevent relapse, decompensation, rehospitalization and other medical implications. I instructed patient to ask her primary care doctor to obtain [facility] record entirely to address abnormalities seen on labs and imaging that I have and have not addressed during this hospitalization, follow-up on pending blood work, imaging and pathology is if available and to follow-up on needed medical care in the outpatient setting. Time Spent with Patient Time attestation: Total time spent providing and/or coordinating discharge services: Time spent: greater than 30 minutes Exam Constitutional Vital Signs, click to edit/add: Last Vital Signs Temp 98.3 F 01/12/25 03:03 Pulse 98 H 01/12/25 03:03 Resp 18 01/12/25 03:03 BP 112/75 01/12/25 03:03 Pulse Ox 92 L 01/12/25 03:03 O2 Del Method Room Air 01/12/25 03:03 DS: Data Data Completed and Pending Labs on day of discharge: Labs from last 24 hours 01/12/25 01/11/25 05:35 09:14 WBC 9.5 RBC 4.21 Hgb 10.7 L Hct 34.4 L MCV 81.7 MCH 25.4 L MCHC 31.1 RDW 15.6 H Plt Count 325 MPV 9.2 L Sodium 135 L Potassium 3.8 Chloride 99 Carbon Dioxide 29.7 Anion Gap 10.1 BUN 7.0 Creatinine 1.07 H Est GFR ( Amer) >60 Est GFR (Non-Af Amer) 57 L BUN/Creatinine Ratio 6.5 Glucose 99 Calcium 8.5 C-Reactive Protein 12.13 H Vancomycin Trough 8.8 Discharge Plan Discharge Disposition: Home, Self-Care Condition: Fair Discharge Medications: New linezolid in dextrose 5% 600 mg/300 mL Piggyback 600 mg IV Q12H 10 Days Qty: 6000 0RF ertapenem 1 gram recon soln 1 g IV DAILY 14 Days Continued omeprazole 40 mg capsule,delayed release(DR/EC) 40 mg PO DAILY Held fluoxetine 40 mg capsule 40 mg PO DAILY Hold Instructions: Resume on 02/02/25. Do not take this medicine as long as you are taking Zyvox amitriptyline 25 mg tablet 25 mg PO BEDTIME Hold Instructions: Resume on 02/02/25. Do not take this medicine as long as you are taking Zyvox Print Language: [place]ian Activity Restrictions/Additional Instructions: I may not have addressed or treated all of your medical illnesses or the abnormal blood work or imaging studies during this hospitalization. Please ask your primary care provider to obtain [facility] records entirely to follow up on all of the abnormal physical, laboratory, and imaging findings that I have not addressed. Please return back to the emergency room or seek medical attention if your symptoms worsen or return. Please do not take amitriptyline and fluoxetine while taking Zyvox Please report your doctor any potential side effect from antibiotic Please follow-up with Dr. Ludivina Florence will shorten or extend antibiotic course based on his assessment of the situation. Blood test: CBC, BMP and CRP to be done weekly. Results to be communicated to primary care doctor. Midline in your arm is to be removed after you finish your antibiotic course. Discharging you from [facility] does not mean that your medical care ends here and now. You may still need additional monitoring, work up, investigation, and treatment plan to be handled from this point on by out patient providers including your primary care provider and specialists. For any medication question, please contact your retail pharmacist or your primary care provider. Thank you. Forms: Portal Instructions Follow Up Appointments: 01/19 @ 1:30pm with Dr. Florence (Infectious Disease) [address] - [email or web address] [address] [phone] 01/20 @ 10:30am with Cheyanne Timmons NP [phone]
--- NOTE | 2025-01-12 10:03 | CM.NOTE ---
I placed a call to [employer] at [phone] but was transferred to [phone] to follow up on the prior authorization for Zyvox 600 mg PO 1 tablet Q 12 hours and was told the prior authorization was still pending and that we would have a response in 24-48 hours. If we do not receive a response I will attempt to call [employer] again.
[2025-01-12] MEDS: LINEZOLID IN DEXTROSE 5% 600 MG/300 ML PIGGYBACK 300 MG IV (10:16)
[2025-01-12] MEDS: PANTOPRAZOLE SODIUM 40 MG TABLET.DR PO (10:17)
[2025-01-12 10:31] VITALS: BP 116/80; PULSE 91; TEMP 36.7; O2SAT 92
--- NOTE | 2025-01-12 12:00 | CM.NOTE ---
Spoke with Dr. Banks regarding discharge planning and zyvox oral not authorized at this time. Called Centralized scheduling and pt is approved for IV Zyvox. Pt at this time will D/C today and f/u in [facility] tomorrow for IV Zyvox and Ertapenem. Pt will stop IV Zyvox and switch to oral once approved by insurance. Order faxed again to Central[facility] scheduling, pharmacy and taken per CM to [facility] clinic. Received order with Peg and explained reason for IV Zyvox at this time. Discussed information with pt, pt verbalizes understanding.
--- NOTE | 2025-01-12 12:32 | W.PM.WC ---
Wound Consult Note Assessment and Plan (1) Sepsis: (2) SALLY (acute kidney injury): (3) Hypokalemia: Plan Consult: Dressing choice for open blisters Patient to be discharged home today and requested by hospitalist to assess patient for appropriate topical dressings to be used at home. Patient states she is going home today if insurance approves antibiotics. Patient with large amount of intact and open blisters to LLE with erythema noted surrounding blistered areas. Drainage is serous in nature. No green, purulence or odor noted. Patient does state her pain is improved as well as her swelling from admission. Open blisters covered with xeroform and all of her lower leg is covered with superabsorber pads. Secured with kerlix/tape. Sunil wrap in figure 8 fashion. Educated patient on care at home. Recommended incontinence pads/maxi pads for absorption if needed at home. Patient is to follow up in outpatient wound center next week. Photos in chart Please call [phone] with any questions or concerns. Osiel Flores RN, CWON
--- NOTE | 2025-01-12 13:12 | CM.NOTE ---
Called [facility]n care transition and spoke with NIKHIL Senior. Please call CM office one day next week when pt arrives for appointment for Dr. Banks to come down to look at pt's leg
[2025-01-12] MEDS: ERTAPENEM SODIUM 1 GM in 0.9 % SODIUM CHLORIDE 50 ML IV (14:00)
--- NOTE | 2025-01-13 12:37 | CM.NOTE ---
Authorization came back for P.O zyvox, insurance approved Linezolid. Spoke with Dr. Banks, new script written for Linezolid. Script taken to [facility] and given to Neftali, pt will stop IV Zyvox after today and start P.O Linezolid 01/14.
--- NOTE | 2025-01-13 13:14 | CM.NOTE ---
Called pt regaring request for pain medications, updated pt Dr. Banks sent script to pharmacy. Discussed with pt she would also start on Linezolid 01/14 and then would only come daily to [facility] clinic. Pt verbalizes understanding, denies questions.
== END 2025-01-12 15:04 | disposition home or self-care (01) | DRG 872 ==
LOC: ER 22:18 → MS 23:10
PROVIDERS: Physician Assistant; Admitting Provider Internal Medicine; Emergency Provider Student in an Organized Health Care Education/Training Program; PCP Nurse Practitioner Family; Visit Provider Internal Medicine
DX: A41.9 Sepsis, unspecified organism (principal); L03.116 Cellulitis of left lower limb; N17.9 Acute kidney failure, unspecified; Z68.45 Body mass index [BMI] 70 or greater, adult; F17.290 Nicotine dependence, other tobacco product, uncomplicated; E66.01 Morbid (severe) obesity due to excess calories; E87.6 Hypokalemia; R65.20 Severe sepsis without septic shock; F41.9 Anxiety disorder, unspecified; F32.A Depression, unspecified
CPT/HCPCS: 36410; 36415; 73590; 73700; 76376; 80048; 80053; 80202; 83605; 84703; 85025; 85027; 86140; 87040; 87070; 87075; 93971; 96365; 96375; 99285; 99406; J0696; J1171; J1335; J1650; J1885; J2020; J3373

== ENCOUNTER 2025-01-18 09:47 | Outpatient (RCR) | payer BC, SELFPAY ==
[2025-01-13 10:00] VITALS: BP 127/75; PULSE 101; TEMP 36.3; O2SAT 93
[2025-01-13] MEDS: ERTAPENEM SODIUM 1 GM in 0.9 % SODIUM CHLORIDE 50 ML IV (10:07)
[2025-01-13] MEDS: LINEZOLID IN DEXTROSE 5% 600 MG/300 ML PIGGYBACK 300 MG IV ×2 (10:08→22:06)
[2025-01-14] MEDS: LINEZOLID IN DEXTROSE 5% 600 MG/300 ML PIGGYBACK 300 MG IV (10:01)
[2025-01-14 10:05] VITALS: BP 119/75; PULSE 98; TEMP 36.6; O2SAT 91
[2025-01-14] MEDS: ERTAPENEM SODIUM 1 GM in 0.9 % SODIUM CHLORIDE 50 ML IV (11:11)
[2025-01-15] MEDS: ERTAPENEM SODIUM 1 GM in 0.9 % SODIUM CHLORIDE 50 ML IV (10:18)
[2025-01-15 10:21] VITALS: BP 114/82; PULSE 82; TEMP 36.6; O2SAT 95
[2025-01-16] MEDS: ERTAPENEM SODIUM 1 GM in 0.9 % SODIUM CHLORIDE 50 ML IV (10:27)
[2025-01-16 10:45] VITALS: BP 128/88; PULSE 93; TEMP 36.9; O2SAT 95
[2025-01-16 11:15] VITALS: BP 128/88; PULSE 93; TEMP 36.9; O2SAT 95
[2025-01-17] MEDS: ERTAPENEM SODIUM 1 GM in 0.9 % SODIUM CHLORIDE 50 ML IV (10:37)
[2025-01-17 10:38] VITALS: BP 104/73; PULSE 96; TEMP 36.4; O2SAT 96
--- NOTE | 2025-01-17 10:40 | PC.NURSE ---
Upon arrival, patient states her left upper arm mid line was bleeding and stated it came out part of the way stated staff changed dressing on arrival to [facility] yesterday, Site clear other than small amount of old bruising at insertion site. unable to get a blood return, patient denies any tenderness pain, site at 13 cm from insertion site, soft, warm, able to flush without any difficulty. utilized ultrasound, able to visualize catheter in cephalic vein, flushed and noted snowy burst in vessel while flushing line. New dressing applied. Antibiotic administered without any issues.
[2025-01-18 09:50] VITALS: BP 109/74; PULSE 88; TEMP 35.7; O2SAT 94
[2025-01-18] MEDS: ERTAPENEM SODIUM 1 GM in 0.9 % SODIUM CHLORIDE 50 ML IV (09:55)
[2025-01-18 10:38] LABS: Anion Gap 15.0; Blood Urea Nitrogen 13.0 mg/dL (7.0-18.0); Calcium 8.9 mg/dL (8.5-10.1); Carbon Dioxide 25.0 mmol/L (21.0-32.0); Chloride 102 mmol/L (98-107); Estimated GFR (African America >60 (>=60 mL/min/1.73m^2); Estimated GFR (Non-African Ame 54 (>=60 mL/min/1.73m^2); Glucose 118 mg/dL (74-106); Potassium 4.0 mmol/L (3.5-5.1); Sodium 138 mmol/L (136-145)
[2025-01-18 10:59] LABS: Hematocrit 35.8 % (36.0-48.0); Hemoglobin 11.3 g/dL (12.0-16.0); Immature Granulocytes Abs Auto 0.04 10^3/uL (0.00-0.03); Immature Granulocytes Pct Auto 0.6 % (0.0-0.5); Lymphocytes Absolute Auto 1.6 10^3/uL (1.2-3.8); Mean Corpuscular HGB Conc 31.6 g/dL (29.9-35.2); Mean Corpuscular Hemoglobin 25.7 pg (26.7-34.0); Mean Corpuscular Volume 81.4 fL (81.0-99.0); Platelet Count 372 10^3/uL (150-450); Red Blood Count 4.40 10^6/uL (4.20-5.40); White Blood Count 6.8 10^3/uL (4.0-11.0)
== END 2025-01-18 23:59 | disposition home or self-care (01) ==
LOC: INF 09:47
PROVIDERS: PCP Nurse Practitioner Family; Visit Provider Internal Medicine
DX: L03.90 Cellulitis, unspecified (principal)
CPT/HCPCS: 36415; 80048; 85025; 86140; G0463; J1335; J2020

== ENCOUNTER 2025-01-18 14:00 | Outpatient (OUT) | payer BC, SELFPAY ==
--- OUTSIDE RECORDS SUMMARY | 2012-01-14 07:30 | XMS_ITS | Encounter Summary ---
Author Organization [facility] Address [address] [facility] [address], [address] [place] [address] Care Team Providers Care Sieve Repairer Name Role Phone Unavailable Primary Care Provider Unavailabl e Encounter Details Date Type Department Care Team (Late st Contact Info) Description 01/14/2012 7:30 AM EDT Hospital Encounter [facility] [address] [phone] Ismael Castle MD 27 [facility] [address] [place] [phone] Social History Tobacco Use Types Packs/Day Years [...]
--- OUTSIDE RECORDS SUMMARY | 2025-01-18 14:12 | XMS_ITS | Patient Health Record ---
Author Organization [facility] [place] Address [address] [place] [address] Care Team Providers Care Survival Equipment Repairer Name Role Phone Cheyanne Timmons Primary Care Provider Allergies Allergen (clinical drug ingredient) Drug/Non Drug Allergy documented on EMR Reaction Allergy Type Onset Date Status chlorhexidine Chlorhexidine Gluconate hives Drug Allergy Active Results Component Value Reference Range Notes CBC AUTO DIFF Reviewed date:01/06/2025 10:48:27 AM Interpretation: Performing Lab: Notes/Report: [facility] , White Blood Count 17.5 4.0-11.0 10 3/uL Red Blood Count 4.87 4.20-5.40 10 6/uL Hemoglobin 12.6 12.0-16.0 g/dL Hematocrit 38.6 36.0-48.0 % Mean Corpuscular Volume 79.3 81.0-99.0 fL Mean Corpuscular Hemoglobin 25.9 26.7-34.0 pg Mean Corpuscular HGB Conc 32.6 29.9-35.2 g/dL Red Cell Distribution Width 15.8 11.0-15.0 % Platelet Count 210 150-450 10 3/uL Mean Platelet Volume 9.7 9.5-13.5 fL Neutrophils Percent Auto 91.1 43.0-75.0 % Lymphocytes Percent Auto 5.8 20.5-60.0 % Monocytes Percent Auto 2.5 1.7-12.0 % Eosinophils Percent Auto 0.0 0.9-7.0 % Basophils Percent Auto 0.2 0.2-2.0 % Immature Granulocytes Pct Auto 0.4 0.0-0.5 % Neutrophils Absolute Auto 16.0 1.4-6.5 10 3/uL Lymphocytes Absolute Auto 1.0 1.2-3.8 10 3/uL Monocytes Absolute Auto 0.4 0.3-0.8 10 3/uL Eosinophils Absolute Auto 0.0 0.0-0.7 10 3/uL Basophils Absolute Auto 0.0 0.0-0.1 10 3/uL Immature Granulocytes Abs Auto 0.07 0.00-0.03 10 3/uL Performing Lab: see note - [facility] LB LACTATE or LACTIC ACID Reviewed date:01/06/2025 10:48:27 AM Interpretation: Performing Lab: Notes/Report: [facility] , Lactate/Lactic Acid 4.9 0.4-2.0 mmol/L RESULT S CALLED TO SAKSHI RIZZO RN Performing Lab: see note [facility] LB PROF 14(COMP METB) Reviewed date:01/06/2025 10:48:27 AM Interpretation: Performing Lab: Notes/Report: [facility] , Sodium 135 136-145 mmol/L Potassium 3.4 3.5-5.1 mmol/L Chloride 97 98-107 mmol/L Carbon Dioxide 24.6 21.0-32.0 mmol/L Anion Gap 16.8 Glucose 118 74-106 mg/dL Blood Urea Nitrogen 12.0 7.0-18.0 mg/dL Creatinine 1.18 0.55-1.02 mg/dL Estimated GFR ( Fidelia >60 >=60 mL/min/1.73m 2 Estimated GFR (Non- Brisa 51 >=60 mL/min/1.73m 2 BUN Creatinine Ratio 10.2 Calcium 8.8 8.5-10.1 mg/dL Bilirubin Total 0.7 0.2-1.0 mg/dL Aspartate Amino Transferase 29 15-37 U/L Alanine Aminotransferase 43 14-59 U/L Alkaline Phosphatase 90 46-116 U/L Total Protein 8.2 6.4-8.2 g/dL Albumin Level 3.2 3.4-5.0 g/dL Globulin 5.0 Albumin Globulin Ratio 0.6 Performing Lab: see note ML - [facility] LB Blood Culture 1 Reviewed date:01/11/2025 04:31:11 PM Interpretation: Performing Lab: Notes/Report: [facility] , Blood Culture 1 See Below For Report Blood Culture 1 NG5D NO GROWTH AT 5 DAYS.^NO GROWTH AT 5 DAYS. Performing Lab: see note ML - [facility] LB Blood Culture 2 Reviewed date:01/11/2025 04:31:11 PM Interpretation: Performing Lab: Notes/Report: [facility] , Blood Culture 2 See Below For Report Blood Culture 2 NG5D NO GROWTH AT 5 DAYS.^NO GROWTH AT 5 DAYS. Performing Lab: see note ML - [facility] LB HCG Qualitative* Reviewed date:01/06/2025 10:48:27 AM Interpretation: Performing Lab: Notes/Report: [facility] , HCG Qualitative NEGATIVE NEGATIVE Performing Lab: see note - [facility] LB XR tibia fibula LT 2V Reviewed date:01/06/2025 10:48:27 AM Interpretation: Performing Lab: Notes/Report: Source Facility: [place] [address] XRay Report Signed Patient: MARIE KIM MR#: [id number] : 1985 Acct:[id number] Age/Sex: 39 / F ADM Date: 01/05/25 Loc: ER Attending Dr: Ordering Physician: Shelley Avila Date of Service: 01/05/25 Procedure(s): XR tibia fibula LT 2V Accession Number(s): [id number] cc: CHEYANNE TIMMONS ; Shelley Avila [place] [address] Patient Name: MARIE KIM MRN: [id number] date: 1985 Sex: F Assigned Patient Location: ER Current Patient Location: ER Accession/Order Number: [id number] Exam Date: 01/05/2025 21:48 Report Date: 01/05/2025 22:01 At the request of: SHELLEY DOUGLASS Procedure: XR tibia fibula LT 2V XR tibia fibula LT 2V 01/05/2025 9:55 PM SIGNS AND SYMPTOMS: Cellulitis, leg pain PROTOCOL: Frontal and lateral radiograph of the left tibia and fibula COMPARISON: None FINDINGS: There is mild narrowing of the medial weightbearing joint space. There is no fracture or dislocation. There is diffuse soft tissue swelling of the left leg. XR/XR tibia fibula LT 2V IMPRESSION: There is diffuse soft tissue swelling of the left leg consistent with a history of sinusitis. No radiographic evidence of ostomy myelitis. Impression dictated by: Bran Mcgarry M.D. 01/05/2025 10:01 PM Dictation Location: [place] [address] Electronically authenticated by: [id number] Y Date: 01/05/2025 22:01 Dictated By: Bran Mcgarry M.D. Signed By: 01/05/252203 DD/ 00 TD/TT: Performance Test Consultant: LACTATE or LACTIC ACID Reviewed date:01/06/2025 10:48:27 AM Interpretation: Performing Lab: Notes/Report: Y [facility] , Lactate/Lactic Acid 1.4 0.4-2.0 mmol/L Performing Lab: see note ML - [facility] LB PROF 14(COMP METB) Reviewed date:01/06/2025 10:48:27 AM Interpretation: Performing Lab: Notes/Report: [facility] , Sodium 134 136-145 mmol/L Potassium 3.5 3.5-5.1 mmol/L Chloride 99 98-107 mmol/L Carbon Dioxide 26.0 21.0-32.0 mmol/L Anion Gap 12.5 Glucose 118 74-106 mg/dL Blood Urea Nitrogen 11.0 7.0-18.0 mg/dL Creatinine 0.93 0.55-1.02 mg/dL Estimated GFR ( Fidelia >60 >=60 mL/min/1.73m 2 Estimated GFR (Non- Brisa >60 >=60 mL/min/1.73m 2 BUN Creatinine Ratio 11.8 Calcium 8.2 8.5-10.1 mg/dL Bilirubin Total 0.5 0.2-1.0 mg/dL Aspartate Amino Transferase 25 15-37 U/L Alanine Aminotransferase 36 14-59 U/L Alkaline Phosphatase 85 46-116 U/L Total Protein 7.6 6.4-8.2 g/dL Albumin Level 2.8 3.4-5.0 g/dL Globulin 4.8 Albumin Globulin Ratio 0.6 Performing Lab: see note ML - [facility] LB CBC no Diff (Hemogram) Reviewed date:01/06/2025 10:48:27 AM Interpretation: Performing Lab: Notes/Report: [facility] , White Blood Count 15.1 4.0-11.0 10 3/uL Red Blood Count 4.59 4.20-5.40 10 6/uL Hemoglobin 11.8 12.0-16.0 g/dL Hematocrit 36.5 36.0-48.0 % Mean Corpuscular Volume 79.5 81.0-99.0 fL Mean Corpuscular Hemoglobin 25.7 26.7-34.0 pg Mean Corpuscular HGB Conc 32.3 29.9-35.2 g/dL Red Cell Distribution Width 15.9 11.0-15.0 % Platelet Count 195 150-450 10 3/uL Mean Platelet Volume 10.2 9.5-13.5 fL Performing Lab: see note ML - [facility] LB LACTATE or LACTIC ACID Reviewed date:01/06/2025 10:48:27 AM Interpretation: Performing Lab: Notes/Report: [facility] , Lactate/Lactic Acid 0.8 0.4-2.0 mmol/L Performing Lab: see note ML - [facility] LB CT lower leg LT wo con Reviewed date:01/07/2025 10:31:24 AM Interpretation: Performing Lab: Notes/Report: Source Facility: [facility] [place] [address] [place] [address] CT Scan Report Signed Patient: MARIE KIM MR#: [id number] : 1985 Acct:[id number] Age/Sex: 39 / F ADM Date: 01/05/25 Loc: [place] 219-[address]: Mali Austin M.D. Ordering Physician: Mali Austin M.D. Date of Service: 01/07/25 Procedure(s): CT lower leg LT wo con Accession Number(s): [id number] cc: CHEYANNE TIMMONS [place] [id number] Patient Name: MARIE KIM MRN: [id number] date: 1985 Sex: F Assigned Patient Location: MS Current Patient Location: MS Accession/Order Number: [id number] Exam Date: 01/07/2025 09:30 Report Date: 01/07/2025 10:13 At the request of: MALI AUSTIN MD Procedure: CT lower leg LT wo con CT LEFT LOWER LEG WITHOUT CONTRAST WITH 3-D RECONSTRUCTIONS CLINICAL DATA: Cellulitis of the left lower leg with erythema from the knee to the ankle. COMPARISON: Plain films 01/05/2025 Spiral axial unenhanced images were obtained through the left lower leg from above the knee to the mid foot. Sagittal, coronal and 3-D volume rendered reconstructions were reviewed. This CT exam was performed using one or more following dose reduction techniques: Automated exposure control, adjustment of the mA and/or kV according to patient size, or use of iterative reconstruction technique. No fracture, dislocation or bony destruction is identified in the field of view. There is mild lateral subluxation of patella. There is no significant knee effusion. There is subcutaneous edema and skin thickening at the imaged leg, greater distally where there is also fluid layering over muscles along the anterior and lateral aspect of the ankle. Fluid-containing blisters are also present at the posterior medial ankle. No subcutaneous air or radiopaque foreign bodies are noted. There is no obvious soft tissue abscess within limits of lack of contrast. CT/CT lower leg LT wo con IMPRESSION: NO ACUTE BONY FINDINGS. FINDINGS COMPATIBLE WITH CELLULITIS AND SUBCUTANEOUS EDEMA. THERE IS NO OBVIOUS SOFT TISSUE ABSCESS HOWEVER EVALUATION IS INCOMPLETE WITHOUT CONTRAST. IF THERE IS STILL A FOCAL AREA OF CONCERN, DIRECTED ULTRASOUND COULD BE PERFORMED. BLISTERS AT THE POSTERIOR MEDIAL ANKLE. Impression dictated by: Jaquelin Richmond M.D. 01/07/2025 10:13 AM Dictation Location: [place] [address] Electronically authenticated by: [id number] Y Date: 01/07/2025 10:13 Dictated By: Jaquelin Richmond M.D. Signed By: 01/07/25 1016 DD/ 1013 TD/TT: Performance Test Consultant: PROF GIORGIO Escobedo ([facility]) Reviewed date:01/10/2025 08:31:32 AM Interpretation: Performing Lab: Notes/Report: [facility] , Sodium 139 136-145 mmol/L Potassium 3.2 3.5-5.1 mmol/L Chloride 103 98-107 mmol/L Carbon Dioxide 25.3 21.0-32.0 mmol/L Anion Gap 13.9 Glucose 98 74-106 mg/dL Blood Urea Nitrogen 10.0 7.0-18.0 mg/dL Creatinine 0.95 0.55-1.02 mg/dL Estimated GFR ( Fidelia >60 >=60 mL/min/1.73m 2 Estimated GFR (Non- Brisa >60 >=60 mL/min/1.73m 2 BUN Creatinine Ratio 10.5 Calcium 8.2 8.5-10.1 mg/dL Performing Lab: see note ML - [facility] LB VANCOMYCIN TROUGH Reviewed date:01/10/2025 08:31:32 AM Interpretation: Performing Lab: Notes/Report: [facility] , Vancomycin Trough 16.1 5.0-20.0 ug/mL Performing Lab: see note - [facility] LB Aerobic Culture Reviewed date:01/11/2025 09:30:28 AM Interpretation: Performing Lab: Notes/Report: [facility] , Aerobic Culture See Below For Report Aerobic Culture Aerobic Culture No growth after 18-24 hours. Aerobic Culture Aerobic Culture Aerobic Culture Aerobic Culture No growth in 36 - 48 hours. Aerobic Culture Aerobic Culture Performed at: [facility] Aerobic Culture Aerobic Culture [address], [place] [id number] Aerobic Culture Aerobic Culture Belt Sander: Rafat Johnson PhD, Phone: [phone] Aerobic Culture Performing Lab: see note - [facility] LB SEE REPORT - Technical Artist Id information not found for OBX-specific creative producer legend Anaerobic Culture Reviewed date:01/17/2025 09:13:45 AM Interpretation: Performing Lab: Notes/Report: [facility] , Anaerobic Culture See Below For Report Anaerobic Culture Anaerobic Culture No aerobic or anaerobic growth in 72 hours. Anaerobic Culture Performing Lab: see note [facility] LB Aerobic Culture Reviewed date:01/17/2025 09:13:45 AM Interpretation: Performing Lab: Notes/Report: [facility] , Aerobic Culture See Below For Report Aerobic Culture Aerobic Culture No growth after 18-24 hours. Aerobic Culture Aerobic Culture Aerobic Culture Aerobic Culture No growth in 36 - 48 hours. Aerobic Culture [facility] A[facility] Culture Aerobic Culture [address] [place], [place] [id number] Aerobic Culture Aerobic Culture Belt Sander: Rafat Johnson PhD, Phone: [phone] Aerobic Culture Performing Lab: see note - [facility] LB SEE REPORT - Technical Artist Id information not found for OBX-specific creative producer legend PROF CHEM 8 (BAS METB) Reviewed date:01/10/2025 08:31:32 AM Interpretation: Performing Lab: Notes/Report: [facility] , Sodium 141 136-145 mmol/L Potassium 3.3 3.5-5.1 mmol/L Chloride 104 98-107 mmol/L Carbon Dioxide 25.3 21.0-32.0 mmol/L Anion Gap 15.0 Glucose 88 74-106 mg/dL Blood Urea Nitrogen 8.0 7.0-18.0 mg/dL Creatinine 1.06 0.55-1.02 mg/dL Estimated GFR ( Fidelia >60 >=60 mL/min/1.73m 2 Estimated GFR (Non- Brisa 58 >=60 mL/min/1.73m 2 BUN Creatinine Ratio 7.5 Calcium 8.5 8.5-10.1 mg/dL Performing Lab: see note - [facility] LB PROF CHEM 8 (BAS METB) Reviewed date:01/10/2025 08:31:32 AM Interpretation: Performing Lab: Notes/Report: [facility] , Sodium 139 136-145 mmol/L Potassium 3.6 3.5-5.1 mmol/L Chloride 103 98-107 mmol/L Carbon Dioxide 25.8 21.0-32.0 mmol/L Anion Gap 13.8 Glucose 118 74-106 mg/dL Blood Urea Nitrogen 6.0 7.0-18.0 mg/dL Creatinine 1.01 0.55-1.02 mg/dL Estimated GFR ( Fidelia >60 >=60 mL/min/1.73m 2 Estimated GFR (Non- Brisa >60 >=60 mL/min/1.73m 2 BUN Creatinine Ratio 5.9 Calcium 8.2 8.5-10.1 mg/dL Performing Lab: see note ML - [facility] LB CBC no Diff (Hemogram) Reviewed date:01/10/2025 08:31:32 AM Interpretation: Performing Lab: Notes/Report: [facility] , White Blood Count 11.1 4.0-11.0 10 3/uL Red Blood Count 4.08 4.20-5.40 10 6/uL Hemoglobin 10.4 12.0-16.0 g/dL Hematocrit 33.2 36.0-48.0 % Mean Corpuscular Volume 81.4 81.0-99.0 fL Mean Corpuscular Hemoglobin 25.5 26.7-34.0 pg Mean Corpuscular HGB Conc 31.3 29.9-35.2 g/dL Red Cell Distribution Width 15.8 11.0-15.0 % Platelet Count 283 150-450 10 3/uL Mean Platelet Volume 9.5 9.5-13.5 fL Performing Lab: see note ML - [facility] LB VANCOMYCIN TROUGH Reviewed date:01/11/2025 10:59:12 AM Interpretation: Performing Lab: Notes/Report: [facility] , Vancomycin Trough 8.8 5.0-20.0 ug/mL Performing Lab: see note ML - [facility] LB CRP Reviewed date:01/12/2025 08:42:48 AM Interpretation: Performing Lab: Notes/Report: [facility] , C Reactive Protein 12.13 <=0.50 mg/dL Performing Lab: see note ML - [facility] LB PROF CHEM 8 (BAS METB) Reviewed date:01/12/2025 08:42:48 AM Interpretation: Performing Lab: Notes/Report: [facility] , Sodium 135 136-145 mmol/L Potassium 3.8 3.5-5.1 mmol/L Chloride 99 98-107 mmol/L Carbon Dioxide 29.7 21.0-32.0 mmol/L Anion Gap 10.1 Glucose 99 74-106 mg/dL Blood Urea Nitrogen 7.0 7.0-18.0 mg/dL Creatinine 1.07 0.55-1.02 mg/dL Estimated GFR ( Fidelia >60 >=60 mL/min/1.73m 2 Estimated GFR (Non- Brisa 57 >=60 mL/min/1.73m 2 BUN Creatinine Ratio 6.5 Calcium 8.5 8.5-10.1 mg/dL Performing Lab: see note ML - [facility] LB CBC no Diff (Hemogram) Reviewed date:01/12/2025 08:42:48 AM Interpretation: Performing Lab: Notes/Report: [facility] , White Blood Count 9.5 4.0-11.0 10 3/uL Red Blood Count 4.21 4.20-5.40 10 6/uL Hemoglobin 10.7 12.0-16.0 g/dL Hematocrit 34.4 36.0-48.0 % Mean Corpuscular Volume 81.7 81.0-99.0 fL Mean Corpuscular Hemoglobin 25.4 26.7-34.0 pg Mean Corpuscular HGB Conc 31.1 29.9-35.2 g/dL Red Cell Distribution Width 15.6 11.0-15.0 % Platelet Count 325 150-450 10 3/uL Mean Platelet Volume 9.2 9.5-13.5 fL Performing Lab: see note ML - [facility] LB CBC AUTO DIFF (Not yet revie wed by provider) Interpretation: Performing Lab: Notes/Report: [facility] , White Blood Count 6.8 4.0-11.0 10 3/uL Red Blood Count 4.40 4.20-5.40 10 6/uL Hemoglobin 11.3 12.0-16.0 g/dL Hematocrit 35.8 36.0-48.0 % Mean Corpuscular Volume 81.4 81.0-99.0 fL Mean Corpuscular Hemoglobin 25.7 26.7-34.0 pg Mean Corpuscular HGB Conc 31.6 29.9-35.2 g/dL Red Cell Distribution Width 15.2 11.0-15.0 % Platelet Count 372 150-450 10 3/uL Mean Platelet Volume 9.6 9.5-13.5 fL Neutrophils Percent Auto 65.7 43.0-75.0 % Lymphocytes Percent Auto 23.7 20.5-60.0 % Monocytes Percent Auto 6.1 1.7-12.0 % Eosinophils Percent Auto 3.3 0.9-7.0 % Basophils Percent Auto 0.6 0.2-2.0 % Immature Granulocytes Pct Auto 0.6 0.0-0.5 % Neutrophils Absolute Auto 4.5 1.4-6.5 10 3/uL Lymphocytes Absolute Auto 1.6 1.2-3.8 10 3/uL Monocytes Absolute Auto 0.4 0.3-0.8 10 3/uL Eosinophils Absolute Auto 0.2 0.0-0.7 10 3/uL Basophils Absolute Auto 0.0 0.0-0.1 10 3/uL Immature Granulocytes Abs Auto 0.04 0.00-0.03 10 3/uL Performing Lab: see note ML - [facility] LB CRP (Not yet reviewed by pro vider) Interpretation: Performing Lab: Notes/Report: [facility] , C Reactive Protein 3.43 <=0.50 mg/dL Performing Lab: see note ML - [facility] LB PROF CHEM 8 (BAS METB) (Not yet reviewed by provider) Interpretation: Performing Lab: Notes/Report: [facility] , Sodium 138 136-145 mmol/L Potassium 4.0 3.5-5.1 mmol/L Chloride 102 98-107 mmol/L Carbon Dioxide 25.0 21.0-32.0 mmol/L Anion Gap 15.0 Glucose 118 74-106 mg/dL Blood Urea Nitrogen 13.0 7.0-18.0 mg/dL Creatinine 1.13 0.55-1.02 mg/dL Estimated GFR ( Fidelia >60 >=60 mL/min/1.73m 2 Estimated GFR (Non- Brisa 54 >=60 mL/min/1.73m 2 BUN Creatinine Ratio 11.5 Calcium 8.9 8.5-10.1 mg/dL Performing Lab: see note ML - [facility] LB Reason For Referral No Information Medications Medication [...] Problem Nervous system and sense organ diseases (780061209) Personal history of other diseases of the nervous system and sense organs (Z86.69) Active confirmed Problem Obesity (808367192) Obesity (E66.9) Active confirmed Problem Anxiety (30474194) Anxiety (F41.9) Active confirmed Problem Arthritis (5537564) Arthritis (M19.90) Active confirmed Problem Depression (517025137) Depression (F32.9) Active confirmed Problem Insomnia (927978605) Insomnia (G47.00) Active confirmed Problem Migraine (04294254) Migraine (G43.909) Active confirmed Problem Acute sinusitis (33893852) Acute sinusitis (J01.90) Active confirmed Problem Current smoker (86916904) Current smoker (F17.200) Active confirmed Problem Restless legs (86027471) Restless legs (G25.81) Active confirmed Problem Irregular heart beat (841614535) Irregular heart beat (I49.9) Active confirmed Problem Body mass index 40+ - morbidly obese (546342611) BMI 60.0-69.9, adult (Z68.44) Active confirmed Problem Annual wellness visit (658458926457034 ) Wellness examination (Z00.00) Active confirmed Problem Gastro-esophagea l reflux disease (009675508) Gastro-esophage al reflux disease (K21.9) Active confirmed Problem Disease caused by Severe acute respiratory syndrome coronavirus 2 (disorder) (186019898) COVID-19 virus infection (U07.1) Active confirmed Problem Low back pain (993303046) Low back pain, unspecified (M54.50) Active confirmed Vital Signs Blood pressure diastolic 78 mm Hg 02/24/2024 Height 65 in 02/24/2024 Blood pressure systolic 130 mm Hg 02/24/2024 Weight 428.4 lbs 02/24/2024 BMI 71.28 kg/m2 02/24/2024 Encounters Encounter Location Date Provider Diagnosis [facility] [address] [place] [address] 02/24/2024 Cheyanne Timmons Migraine G43.909 [facility] [address] [place] [address] 02/24/2024 Cheyanne Timmons Wellness examination Z00.00 [facility] [address] [place] [address] 02/26/2024 Cheyanne Timmons [facility] [address] [place] [address] 01/11/2025 Cheyanne Timmons Assessments Encounter Date Diagnosis (ICD [...] (CHOL/TRIG/HDL/LDL) 02/24/20 24 CBC WITH DIFF 02/24/2024 CBC AUTO DIFF 01/18/2025 CRP 01/18/2025 PROF CHEM 8 (BAS METB) 01/18/2025 THYROID PANEL (T4/TSH/FREE T3) 4 Next Appt Details Provider Name:Cheyanne chavez, 01/20/2025 01:00:00 PM, [address] [place], [address], Insurance Providers Payer Name Payer Address Payer Phone Subscriber Number Group Number Insured Name Patient Relationship to Insured Coverage Start Date Coverage End Date [employer] PPO PLUS LOCAL PLAN [address] [place] [address] [phone] [id number] Tejinder Kim Spouse - patient is the spouse of [...] Current smoker F17.200 Surgical History Surgery Date(Month/Year) tonsillectomy gallbladder removal x2
--- OUTSIDE RECORDS SUMMARY | 2025-01-18 14:12 | XMS_ITS | Clinical Summary ---
Author Organization [facility] Address [address], [address] [place] [address] Care Team Providers Care Rat Poisoner Name Role Phone Unavailable Primary Care Provider [...]
== END 2025-01-18 14:01 | disposition home or self-care (01) ==
LOC: WC 14:10
PROVIDERS: PCP Nurse Practitioner Family; Visit Provider Physician Assistant
DX: L97.822 Non-pressure chronic ulcer of other part of left lower leg with fat layer exposed (principal)
CPT/HCPCS: 29581; G0463

== ENCOUNTER 2025-01-25 10:50 | Outpatient (OUT) | payer BC, SELFPAY ==
--- OUTSIDE RECORDS SUMMARY | 2012-01-14 07:30 | XMS_ITS | Encounter Summary ---
Author Organization [facility] Address [address], [address] [place] [address] Care Team Providers Care Workers Compensation Claims Examiner Name Role Phone Unavailable Primary Care Provider Unavailabl e Encounter Details Date Type Department Care Team (Late st Contact Info) Description 01/14/2012 7:30 AM EDT Hospital Encounter [facility] [address] [phone] Ismael Castle MD 27 [facility] [address] [place] [phone] Social History Tobacco Use Types Packs/Day Years [...]
--- OUTSIDE RECORDS SUMMARY | 2025-01-19 09:58 | XMS_ITS | Continuity of Care Document ---
Author Organization [facility] Address [address] [place] [address] Phone Care Team Providers Care Gravel Inspector Name Role Phone Cheyanne Timmons NP-C Primary Care Provider Riley Florence MD Attending Provider Care Teams Patient Care Team Team Status: Active Member Role Status Dates Cheyanne Timmons NP-Khloe Primary Care Provider Active Visit Care Team Team Status: Inactive Member Role Status Dates Cheyanne Timmons NP-C Primary Care Provider Active Start: January 19, 2025 End: January 19, 2025 Riley Florence MD Attending Provider Active Sta rt: January 19, 2025 End: January 19, 2025 Chief Complaint and Reason for Visit Chief Complaint Admit Date D/C [facility] 01/11/2025 January 19, 2025 1: 23pm Allergies, Adverse Reactions, Alerts Allergen Type Severity Reaction Last Updated Verified Status chlorhexidine Allergy Unknown Unknown Reaction Octob er 2024 1:27pm Yes Active Social History Smoking Status Status Start Date End Date Date of Observa tion Never smoked tobacco (finding) January 19, 2025 10:22am Observation Status Observation Response Date of Response Legal Sex Female (finding) Sex Assigned At Female 1985 Family History Relationship Condition Age at Onset Recorded Date/T elier father Unknown Heart disease Unknown Problems Active Problems Medical Problem Onset Date Status Left leg cellulitis Unknown Active Anxiety Unknown Active Depression Unknown Active GERD (gastroesophageal reflux disease) Unknown Active Medications Medication Status Dose Units Route Directions Qty Days St art Date Stop Date End Date Instructions Adherence Linezolid 600 mg tablet Active 600 MG PO Twice daily Octobe r 2024 12:00a m Complies with drug therapy Ertapenem 1 gram recon soln Active 1 GM IV Daily Octobe r 2024 12:00a m Complies with drug therapy Omeprazole 40 mg capsule,del ayed release(DR/ EC) Active 40 MG PO Daily July 09, 2023 12:00a m Complies with drug therapy Fluoxetine 40 mg capsule Active 40 MG PO Daily July 09, 2023 12:00a m Complies with drug therapy Amoxicillin 500 mg capsule Discont inued 500 MG PO Three times daily 30 July 09, 2023 12:00a m 2024 10:56 am Amitriptyli ne 25 mg tablet Active 25 MG PO Daily 2024 1:00am Unknown Benzonatate 200 mg capsule Discont inued 200 MG PO 2-3 TIMES PER DAY as needed for cough 2024 1:00am Octob er 2024 9:55a m Fluticasone Propionate (Flonase Allergy Relief) 50 mcg/actuati on spray,suspe nsion Discont inued 1 SPRAY INTRAN SHARDA Daily 16 2024 1:00am Octob er 2024 9:55a m administer into each nostril Vital Signs Vital Reading Result Reference Range Collection Date/Time Body Temperature 97.1 [degF] 97.6-99.0 January 1:30pm Heart Rate 91 /min 60-100 January 19 1:30pm BP Systolic 109 mm[Hg] 100-140 January 19 1:30pm BP Diastolic 76 mm[Hg] 60-100 January 19 1:30pm Advance Directives Advance Directive Response Recorded Date/ Time Advance Directives No February 7:44am Insurance Providers Guarantor Marie Zee Address [address] [address] Contact Info. Home Phone: Payer Policy Id Subscriber's Name Subscriber Id Effectiv e Date [place] [facility] [place] [facility] [id number] Tejinder Zee [id number] Wisam GAMEZ/JESUS [id number] Marie Zee [id number] Encounters Encounter Location(s) Arrival/Admit Date Discharge/Depart Date Provider(s) Departed Physician/Prov ider Office Visit -[facility] Infect Dis January 19, 2025 1:23pm January 19, 2025 1:53pm Riley Florence MD
--- OUTSIDE RECORDS SUMMARY | 2025-01-20 09:00 | XMS_ITS ---
Author Organization [facility] in [place] Address [address] [place] [address] Care Team Providers Care Rides Supervisor Name Role Phone Cheyanne Timmons Primary Care Provider Allergies Allergen (clinical drug ingredient) Drug/Non Drug Allergy documented on EMR Reaction Allergy Type Onset Date Status chlorhexidine Chlorhexidine Gluconate hives Drug Allergy Active REASON FOR VISIT [facility] D/C-01/11 Sepsis, Cellulitis LLE, Currently on oral and IV atb at [facility]. Yordan and SeenDr. Ludivina corona yesterday. [...] Status Risk Notes Problem Elevated blood pressure (75418752) Elevated blood pressure (I10) Active confirmed Vital Signs Weight 451 lbs 01/20/2025 Height 65 in 01/20/2025 Blood pressure systolic 138 mm Hg 01/21/20 25 Blood pressure diastolic 90 mm Hg 025 BMI 75.04 kg/m2 01/20/2025 Encounters Encounter Location Date Provider Diagnosis [facility] [address] [place] [address] 01/20/2025 Cheyanne Timmons Neuropathic pain M79.2 ; [...] Notes * Renetta KIMB:1985 (39 yo F)Acc No.[id number]:01/20/2025 Progress Note Patient: Marie FORD Provider: Sisi Timmons ([facility]), MANAGER GAMES :1985 A ge:39 Y S ex:Female Date:01/20/2025 Address:[address] [place], [place] [address], [id number] Check In:12:58 PM ESTCheck O ut:01:25 PM EST Subjective: * Chief Complaints: * 1 . TCM [facility] D/C-01/11 Sepsis, Cellulitis LLE. 2. Currently on oral and IV atb at [facility]. Ivanz and zyvox. 3. Seen Dr. [...] N egative * Medications: T aking Excedrin Migraine(Qisnxit-Zxqrbsbemjnlt-Utqqerur) 250-250-65 MG Tablet 2 tablets Orally Once [...] MGMT SV * Preventive Medicine: Screenings/Counseling: B [place] ACTION PLAN Above Normal BMI Follow-up D ietary management education, guidance, and counseling See treatment section of progress note for complete details of management plan. T OBACCO ACTION PLAN Patient counselled on the dangers of tobacco use and urged to quit. 1 . * Follow Up: 2 Weeks,prn * * Sign off status: Completed Visit Status: C HK (Check Out) true * Provider: Sisi Timmons ([facility]), MANAGER GAMES Date: Generated for Cary whitaker/Josué/eTransmitting on: 1 10:52 AM EDT History and Physical Notes * HPI [...]
--- OUTSIDE RECORDS SUMMARY | 2025-01-20 10:27 | XMS_ITS ---
Author Organization The [facility] in [place] Address [address] [place] [address] Care Team Providers Care Sound Effects Person Name Role Phone Cheyanne Timmons Primary Care Provider [phone] REASON FOR VISIT yeast infection Medications Medication SIG (Take, Route, Fr equency, Duration) Notes Start Date End Date Status Fluconazole 150 MG 1 tablet Orally once ; Duration: 1 days 01/20/2025 Active Encounters Encounter Location Date Provider Diagnosis [facility] [address] [place] [address] 01/20/2025 Cheyanne Timmons Plan Of Treatment Medication Medication Name Sig Start Date Stop Date Notes Fluconazole 150 MG 1 tablet Orally once; Duration: 1 days 01/20/2025 Progress Notes * Renetta KIMB:1985 (39 yo F)Acc No.[id number]:01/20/2025 Patient: Noel FORDsha :1985 A ge:39 Y S ex:Female Address:[address] [place] [address] * Refills Start Fluconazole Tablet, 150 MG, Orally, 1, 1 tablet, once, 1 days, Refills=1 Subjective: * Chief Complaints: * Y east infection * Medical History: * Surgical History: * Hospitalization/Major Diagno stic Procedure: * Medications: Objective: * Vitals: * Physical Examination: Assessment: Plan: * Treatment: * Procedure Codes: * true * Date: Generated for Cary whitaker/Josué/Yamile on: 10:52 AM EDT
--- OUTSIDE RECORDS SUMMARY | 2025-01-25 10:52 | XMS_ITS | Clinical Summary ---
Author Organization [facility] Address [address], [address] [place] [address] Care Team Providers Care Healthcare Management Consultant Name Role Phone Unavailable Primary Care Provider [...]
--- OUTSIDE RECORDS SUMMARY | 2025-01-25 10:53 | XMS_ITS | Patient Health Record ---
Author Organization The [facility] in [place] Address [address] [place] [address] Care Team Providers Care Black Oxide Coating Equipment Tender Name Role Phone Cheyanne Timmons Primary Care Provider Allergies Allergen (clinical drug ingredient) Drug/Non Drug Allergy documented on EMR Reaction Allergy Type Onset Date Status chlorhexidine Chlorhexidine Gluconate hives Drug Allergy Active Results Component Value Reference Range Notes CBC AUTO DIFF Reviewed date:01/06/2025 10:48:27 AM Interpretation: Performing Lab: Notes/Report: [facility] , White Blood Count 17.5 4.0-11.0 10 [...] 3/uL Performing Lab: see note ML - [facility] LB PROF 14(COMP METB) Reviewed date:01/06/2025 10:48:27 AM Interpretation: Performing Lab: Notes/Report: [facility] , Sodium 135 136-145 mmol/L Potassium 3.4 [...] 0.6 Performing Lab: see note ML - [facility] LB HCG Qualitative* Reviewed date:01/06/2025 10:48:27 AM Interpretation: Performing Lab: Notes/Report: [facility] , HCG Qualitative NEGATIVE NEGATIVE Performing Lab: see note - [facility] LB XR tibia fibula LT 2V Reviewed date:01/06/2025 10:48:27 AM Interpretation: Performing Lab: Notes/Report: Source Facility: [facility]-[address] [place] [address] [address] XRay Report Signed Patient: MARIE KIM MR#: [id number] : 1985 Acct:[id number] Age/Sex: 39 / F ADM Date: 01/05/25 Loc: ER Attending Dr: Ordering Physician: Shelley Avila Date of Service: 01/05/25 Procedure(s): XR tibia fibula LT 2V Accession Number(s): [id number] cc: CHEYANNE TIMMONS ; Shelley Avila [place] [address] Patient Name: MARIE KIM MRN: [id number] date: 1985 Sex: F Assigned Patient Location: ER Current Patient Location: ER Accession/Order Number: [id number] Exam Date: 01/05/2025 21:48 Report Date: 01/05/2025 [...] Mcgarry M.D. 01/05/2025 10:01 PM Dictation Location: [place] [address] Electronically authenticated by: [id number] Y Date: 01/05/2025 22:01 Dictated By: Bran Mcgarry M.D. Signed By: 01/05/252203 DD/ 00 TD/TT: Mushroom Growing Supervisor: LACTATE or LACTIC ACID Reviewed date:01/06/2025 10:48:27 AM Interpretation: Performing Lab: Notes/Report: Y [facility] , Lactate/Lactic Acid 1.4 0.4-2.0 mmol/L Performing Lab: see note ML - [facility] LB PROF 14(COMP METB) Reviewed date:01/06/2025 10:48:27 AM Interpretation: Performing Lab: Notes/Report: [facility] , Sodium 134 136-145 mmol/L Potassium 3.5 [...] Performing Lab: see note ML - [facility] LB CBC no Diff (Hemogram) Reviewed date:01/06/2025 10:48:27 AM Interpretation: Performing Lab: Notes/Report: [facility] , White Blood Count 15.1 4.0-11.0 10 [...] fL Performing Lab: see note ML - [facility] LB LACTATE or LACTIC ACID Reviewed date:01/06/2025 10:48:27 AM Interpretation: Performing Lab: Notes/Report: [facility] , Lactate/Lactic Acid 0.8 0.4-2.0 mmol/L Performing Lab: see note - [facility] PROF CHEM 8 (BAS METB) Reviewed date:01/10/2025 08:31:32 AM Interpretation: Performing Lab: Notes/Report: [facility] , Sodium 139 136-145 mmol/L Potassium 3.2 [...] mg/dL Performing Lab: see note ML - [facility] LB Aerobic Culture Reviewed date:01/11/2025 09:30:28 AM Interpretation: Performing Lab: Notes/Report: [facility] , Aerobic Culture See Below For Report Aerobic Culture Aerobic Culture No growth after 18-24 hours. Aerobic Culture Aerobic Culture Aerobic Culture Aerobic Culture No growth in 36 - 48 hours. Aerobic Culture Aerobic Culture Performed at: [facility] A[facility] Culture Aerobic Culture [address], [place] [id number] Aerobic Culture Aerobic Culture Epic Kaleidoscope Analyst: Rafat Johnson PhD, Phone: [phone] Aerobic Culture Performing Lab: see note - [facility] LB SEE REPORT - [employer] Id information not found for OBX-specific antique furniture reproducer legend PROF CHEM 8 (BAS METB) Reviewed date:01/10/2025 08:31:32 AM Interpretation: Performing Lab: Notes/Report: [facility] , Sodium 141 136-145 mmol/L Potassium 3.3 [...] mg/dL Performing Lab: see note ML - [facility] LB VANCOMYCIN TROUGH Reviewed date:01/11/2025 10:59:12 AM Interpretation: Performing Lab: Notes/Report: [facility] , Vancomycin Trough 8.8 5.0-20.0 ug/mL Performing Lab: see note ML - [facility] LB CRP Reviewed date:01/12/2025 08:42:48 AM Interpretation: Performing Lab: Notes/Report: [facility] , C Reactive Protein 12.13 <=0.50 mg/dL Performing Lab: see note ML - [facility] LB PROF CHEM 8 (BAS METB) Reviewed date:01/12/2025 08:42:48 AM Interpretation: Performing Lab: Notes/Report: [facility] , Sodium 135 136-145 mmol/L Potassium 3.8 [...] mg/dL Performing Lab: see note ML - [facility] LB CBC no Diff (Hemogram) Reviewed date:01/12/2025 08:42:48 AM Interpretation: Performing Lab: Notes/Report: [facility] , White Blood Count 9.5 4.0-11.0 10 [...] fL Performing Lab: see note ML - [facility] LB CBC AUTO DIFF Reviewed date:01/19/2025 08:33:20 AM Interpretation: Performing Lab: Notes/Report: [facility] , White Blood Count 6.8 4.0-11.0 10 [...] 10 3/uL Performing Lab: see note - [facility] LB CRP Reviewed date:01/19/2025 08:33:20 AM Interpretation: Performing Lab: Notes/Report: [facility] , C Reactive Protein 3.43 <=0.50 mg/dL Performing Lab: see note - [facility] LB PROF CHEM 8 (BAS METB) Reviewed date:01/19/2025 08:33:20 AM Interpretation: Performing Lab: Notes/Report: [facility] , Sodium 138 136-145 mmol/L Potassium 4.0 3.5-5.1 mmol/L Chloride 102 98-107 mmol/L Carbon Dioxide 25.0 21.0-32.0 mmol/L Anion Gap 15.0 Glucose 118 74-106 mg/dL Blood Urea Nitrogen 13.0 7.0-18.0 mg/dL Creatinine 1.13 0.55-1.02 mg/dL Estimated GFR ( Fidelia >60 >=60 mL/min/1.73m 2 Estimated GFR (Non- Brisa 54 >=60 mL/min/1.73m 2 BUN Creatinine Ratio 11.5 Calcium 8.9 8.5-10.1 mg/dL Performing Lab: see note - [facility] LB Aerobic Culture Reviewed date:01/17/2025 09:13:45 AM Interpretation: Performing Lab: Notes/Report: [facility] , Aerobic Culture See Below For Report Aero bic Culture Aerobic Culture No growth after 18-24 hours. Aerobic Culture Aerobic Culture Aerobic Cult ure Aerobic Culture No growth in 36 - 48 hours. Aerobic Culture Aerobic Culture Performed at: [facility] Aerobic Culture Aerobic Culture [address], [place] [id number] Aerobic Culture Aerobic Culture Epic Kaleidoscope Analyst: Rafat Johsnon PhD, Phone: [phone] Aerobic Culture Performing Lab: see note SEE REPORT - [employer] Id information not found for OBX-specific antique furniture reproducer legend - [facility] LB Anaerobic Culture Reviewed date:01/17/2025 09:13:45 AM Interpretation: Performing Lab: Notes/Report: [facility] , Anaerobic Culture See Below For Report Anaerobic Culture Anaerobic Culture No aerobic or anaerobic growth in 72 hours. Anaerobic Culture Performing Lab: see note LC - [facility] LB VANCOMYCIN TROUGH Reviewed date:01/10/2025 08:31:32 AM Interpretation: Performing Lab: Notes/Report: [facility] , Vancomycin Trough 16.1 5.0-20.0 ug/mL Performing Lab: see note ML - [facility] LB CT lower leg LT wo con Reviewed date:01/07/2025 10:31:24 AM Interpretation: Performing Lab: Notes/Report: Source Facility: [facility]-[address] [place] [address] [place] [address] CT Scan Report Signed Patient: MARIE KIM MR#: [id number] : 1985 Acct:[id number] Age/Sex: 39 / F ADM Date: 01/05/25 Loc: [place] 219-[address]: Mali Austin M.D. Ordering Physician: Mali Austin M.D. Date of Service: 01/07/25 Procedure(s): CT lower leg LT wo con Accession Number(s): [id number] cc: CHEYANNE TIMMONS [place] [address] Patient Name: MARIE KIM MRN: [id number] date: 1985 Sex: F Assigned Patient Location: [place] Current Patient Location: [place] Accession/Order Number: [id number] Exam Date: 01/07/2025 09:30 Report Date: 01/07/2025 [...] Richmond M.D. 01/07/2025 10:13 AM Dictation Location: [place] [address] Electronically authenticated by: [id number] Y Date: 01/07/2025 10:13 Dictated By: Jaquelin Richmond M.D. Signed By: 01/07/25 1016 DD/ 1013 TD/TT: Mushroom Growing Supervisor: Blood Culture 2 Reviewed date:01/11/2025 04:31:11 PM Interpretation: Performing Lab: Notes/Report: [facility] , Blood Culture 2 See Below For Report NG5D NO GROWTH AT 5 DAYS.^NO GROWTH AT 5 DAYS. Blood Culture 2 Performing Lab: see note ML - [facility] LB Blood Culture 1 Reviewed date:01/11/2025 04:31:11 PM Interpretation: Performing Lab: Notes/Report: [facility] , Blood Culture 1 See Below For Report NG5D NO GROWTH AT 5 DAYS.^NO GROWTH AT 5 DAYS. Blood Culture 1 Performing Lab: see note ML - [facility] LB LACTATE or LACTIC ACID Reviewed date:01/06/2025 10:48:27 AM Interpretation: Performing Lab: Notes/Report: [facility] , Lactate/Lactic Acid 4.9 0.4-2.0 mmol/L RESULT S CALLED TO SAKSHI RIZZO, RN Performing Lab: see note ML - [facility] LB CBC no Diff (Hemogram) Reviewed date:01/10/2025 08:31:32 AM Interpretation: Performing Lab: Notes/Report: [facility] , White Blood Count 11.1 4.0-11.0 10 [...] 9.5 9.5-13.5 fL Performing Lab: see note - [facility] PROF CHEM 8 (BAS METB) Reviewed date:01/10/2025 08:31:32 AM Interpretation: Performing Lab: Notes/Report: [facility] , Sodium 139 136-145 mmol/L Potassium 3.6 [...] mg/dL Performing Lab: see note ML - [facility] Reason For Referral No Information Medications Medication [...] 2 tablets Orally Once a day Active Fluconazole 150 MG 1 tablet Orally once ; Duration: 1 days 01/20/2025 Active FLUoxetine HCl 40 MG TAKE 1 [...] Problem Nervous system and sense organ diseases (271525252) Personal history of other diseases of the nervous system and sense organs (Z86.69) Active confirmed Problem Obesity (091168321) Obesity (E66.9) Active confirmed Problem Anxiety (54558636) Anxiety (F41.9) Active confirmed Problem Arthritis (2919022) Arthritis (M19.90) Active confirmed Problem Depression (505852733) Depression (F32.9) Active confirmed Problem Insomnia (726047890) Insomnia (G47.00) Active confirmed Problem Migraine (26000456) Migraine (G43.909) Active confirmed Problem Acute sinusitis (09407296) Acute sinusitis (J01.90) Active confirmed Problem Current smoker (41031492) Current smoker (F17.200) Active confirmed Problem Restless legs (89515022) Restless legs (G25.81) Active confirmed Problem Irregular heart beat (379449873) Irregular heart beat (I49.9) Active confirmed Problem Body mass index 40+ - morbidly obese (693543819) BMI 60.0-69.9, adult (Z68.44) Active confirmed Problem Annual wellness visit (101975132273307 ) Wellness examination (Z00.00) Active confirmed Problem Gastro-esophagea l reflux disease (386441279) Gastro-esophage al reflux disease (K21.9) Active confirmed Problem Elevated blood pressure (19398198) Elevated blood pressure (I10) Active confirmed Problem Disease caused by Severe acute respiratory syndrome coronavirus 2 (disorder) (678551974) COVID-19 virus infection (U07.1) Active confirmed Problem Low back pain (843622463) Low back pain, unspecified (M54.50) Active confirmed Vital Signs Blood pressure diastolic 90 mm Hg 01/20/2025 Height 65 in 01/20/2025 Blood pressure systolic 138 mm Hg 01/20/2025 Weight 451 lbs 01/20/2025 BMI 75.04 kg/m2 01/20/2025 Encounters Encounter Location Date Provider Diagnosis [address] [address] 02/24/2024 Cheyanne Timmons Migraine G43.[address] [address] 01/20/2025 Cheyanne Timmons Neuropathic pain M79.2 ; Elevated blood pressure I10 ; Cellulitis L03.90 and Wellness examination Z00.[address] [address] 02/24/2024 Cheyanne Timmons Wellness examination Z00.[address] [address] 02/26/2024 Cheyanne Timmons [address] [address] 01/11/2025 Cheyanne Timmons [address] [address] 01/20/2025 Cheyanne Timmons Assessments Encounter Date Diagnosis (ICD Code) Assessment Notes Treatment Notes Treatment Clinical Notes Section Notes 02/24/2024 Migraine (ICD-10 - G43.909) Toradol and Norflex IM samples Nurtec if meds not helping, fu , discussed imaging 01/20/2025 Neuropathic pain (ICD-10 - M79.2) CSA signed OARRS reviewed 01/20/2025 Elevated blood pressure (ICD-10 - I10) BP check 2 weeks 02/24/2024 Wellness examination (ICD-10 - Z00.00) 01/20/2025 Cellulitis (ICD-10 - L03.90) continue fu ID and wound care improving slowly 01/20/2025 Wellness examination (ICD-10 - Z00.00) Plan Of Treatment Pending Test Test Name Order Date CMP (COMPLETE METABOLIC PANEL) 4 HEMOGLOBIN A1C (GLYCO) 02/24/2024 HEMOGLOBIN A1C (GLYCO) 01/20/2025 INSULIN, TOTAL 02/24/2024 IRON, TOTAL 01/20/2025 LIPID PANEL (CHOL/TRIG/HDL/LDL) 02/24/20 24 LIPID PANEL (CHOL/TRIG/HDL/LDL) 01/21/20 25 CBC WITH DIFF 02/24/2024 VITAMIN D, 25 LEVEL (TOTAL) 01/20/2025 Insulin Level 01/20/2025 THYROID PANEL (T4/TSH/FREE T3) 5 THYROID PANEL (T4/TSH/FREE T3) 4 CMP (COMP MET MORALES) w/eGFR CKD-EPI 2024 CBC WITH DIFF 01/20/2025 Insurance Providers Payer Name Payer Address Payer Phone Subscriber Number Group Number Insured Name Patient Relationship to Insured Coverage Start Date Coverage End Date [employer] ACCESS PPO PLUS LOCAL PLAN [address] [place] [address] [phone] [id number] Tejinder Kim Spouse - patient is the [...] Current smoker F17.200 Surgical History Surgery Date(Month/Year) x2 tonsillectomy gallbladder removal Hospitalization History Reason Date(Month/Year) [facility]- cellulitis and Sepsis
[2025-01-25 11:16] LABS: Hematocrit 37.0 % (36.0-48.0); Hemoglobin 11.5 g/dL (12.0-16.0); Immature Granulocytes Abs Auto 0.02 10^3/uL (0.00-0.03); Immature Granulocytes Pct Auto 0.3 % (0.0-0.5); Lymphocytes Absolute Auto 1.9 10^3/uL (1.2-3.8); Mean Corpuscular HGB Conc 31.1 g/dL (29.9-35.2); Mean Corpuscular Hemoglobin 25.3 pg (26.7-34.0); Mean Corpuscular Volume 81.3 fL (81.0-99.0); Platelet Count 324 10^3/uL (150-450); Red Blood Count 4.55 10^6/uL (4.20-5.40); White Blood Count 6.6 10^3/uL (4.0-11.0)
[2025-01-25 11:49] LABS: Alanine Aminotransferase 52 U/L (14-59); Albumin Globulin Ratio 0.8; Albumin Level 3.3 g/dL (3.4-5.0); Alkaline Phosphatase 104 U/L (46-116); Anion Gap 13.4; Aspartate Amino Transferase 34 U/L (15-37); Blood Urea Nitrogen 13.0 mg/dL (7.0-18.0); Calcium 8.6 mg/dL (8.5-10.1); Carbon Dioxide 26.9 mmol/L (21.0-32.0); Chloride 103 mmol/L (98-107); Cholesterol 166 mg/dL (<=200); Estimated GFR (African America >60 (>=60 mL/min/1.73m^2); Estimated GFR (Non-African Ame 54 (>=60 mL/min/1.73m^2); Free T3 2.29 pg/mL (2.18-3.98); Globulin 4.3 g/dL; Glucose 91 mg/dL (74-106); HDL Cholesterol 37 mg/dL (40-60); Potassium 4.3 mmol/L (3.5-5.1); Sodium 139 mmol/L (136-145); Thyroid Stimulating Hormone 2.050 uIU/mL (0.358-3.740); Total Protein 7.6 g/dL (6.4-8.2); Triglycerides 310 mg/dL (<=150); VLDL CHOLESTEROL 62.0 mg/dL
[2025-01-25 12:20] LABS: Iron 53.0 ug/dL (50.0-170.0)
== END 2025-01-25 10:51 | disposition home or self-care (01) ==
LOC: LAB 10:50
PROVIDERS: PCP Nurse Practitioner Family; Visit Provider Nurse Practitioner Family
DX: Z00.00 Encounter for general adult medical examination without abnormal findings (principal)
CPT/HCPCS: 36415; 80053; 80061; 82306; 83036; 83525; 83540; 84436; 84443; 84481; 85025

== ENCOUNTER 2025-01-26 09:57 | Outpatient (RCR) | payer BC, SELFPAY ==
[2025-01-19 10:16] VITALS: BP 136/94; PULSE 103; TEMP 36.1; O2SAT 94
[2025-01-19] MEDS: ERTAPENEM SODIUM 1 GM in 0.9 % SODIUM CHLORIDE 50 ML IV (10:20)
[2025-01-20 10:00] VITALS: BP 123/87; PULSE 92; TEMP 36.3; O2SAT 94
[2025-01-20] MEDS: ERTAPENEM SODIUM 1 GM in 0.9 % SODIUM CHLORIDE 50 ML IV (10:03)
--- NOTE | 2025-01-20 11:25 | PC.NURSE ---
1030: Dr. Banks to chairside to evaluate leg. No new orders given. Leg re-dressed per wound nurse. Pt tolerates without c/o.
[2025-01-21] MEDS: ERTAPENEM SODIUM 1 GM in 0.9 % SODIUM CHLORIDE 50 ML IV (10:04)
[2025-01-21 10:10] VITALS: BP 115/80; PULSE 91; TEMP 36.3; O2SAT 93
--- NOTE | 2025-01-21 10:26 | PC.NURSE ---
lef t upper arm mid line intact, site clear, unable to obtain blood return, but flushes easily. new op site and stat lock applied, tolerated well.
[2025-01-22 10:24] VITALS: BP 142/83; PULSE 87; TEMP 36.6; O2SAT 93
[2025-01-22] MEDS: ERTAPENEM SODIUM 1 GM in 0.9 % SODIUM CHLORIDE 50 ML IV (10:26)
[2025-01-23 10:06] VITALS: BP 130/77; PULSE 102; O2SAT 96
[2025-01-23] MEDS: ERTAPENEM SODIUM 1 GM in 0.9 % SODIUM CHLORIDE 50 ML IV (10:14)
[2025-01-24 10:04] VITALS: BP 157/98; PULSE 96; TEMP 35.9; O2SAT 94
--- NOTE | 2025-01-24 10:05 | PC.NURSE ---
rt upper arm midline intact, site clear. dressing dry and intact, unable to obtain blood return, but flushes easily.
[2025-01-24] MEDS: ERTAPENEM SODIUM 1 GM in 0.9 % SODIUM CHLORIDE 50 ML IV (10:07)
[2025-01-25 10:00] VITALS: BP 142/87; PULSE 96; TEMP 36.5; O2SAT 96
[2025-01-25] MEDS: ERTAPENEM SODIUM 1 GM in 0.9 % SODIUM CHLORIDE 50 ML IV (10:05)
[2025-01-26] MEDS: ERTAPENEM SODIUM 1 GM in 0.9 % SODIUM CHLORIDE 50 ML IV (10:04)
[2025-01-26 10:07] VITALS: BP 142/82; PULSE 94; TEMP 35.8; O2SAT 95
== END 2025-02-18 23:59 | disposition home or self-care (01) ==
LOC: INF 09:57
PROVIDERS: PCP Nurse Practitioner Family; Visit Provider Internal Medicine
DX: L03.90 Cellulitis, unspecified (principal)
CPT/HCPCS: J1335

== ENCOUNTER 2025-01-27 10:30 | Outpatient (OUT) | payer BC, SELFPAY | END 2025-01-27 10:31 | disposition home or self-care (01) | LOC: WC 10:30 | PROVIDERS: PCP Nurse Practitioner Family; Visit Provider Physician Assistant | DX: L97.822 Non-pressure chronic ulcer of other part of left lower leg with fat layer exposed (principal) | CPT/HCPCS: 29581 ==

== ENCOUNTER 2025-01-31 10:00 | Outpatient (OUT) | payer BC, SELFPAY ==
--- OUTSIDE RECORDS SUMMARY | 2012-01-14 07:30 | XMS_ITS | Encounter Summary ---
Author Organization [facility] Address [address], [address] [place] [address] Care Team Providers Care Gasfitter Name Role Phone Unavailable Primary Care Provider Unavailabl e Encounter Details Date Type Department Care Team (Late st Contact Info) Description 01/14/2012 7:30 AM EDT Hospital Encounter [facility] [address] [phone] Ismael Castle MD [address] [facility] [address] [place] [phone] Social History Tobacco Use Types Packs/Day Years Used Date Smoking Tobacco: Former Cigarettes 0.3 6 Smokeless Tobacco: Never Alcohol Use Standard Drinks/Week Comments No 0 (1 standard drink = 0.6 oz pur e alcohol) Comments No Sex and Gender Information Value Date Recorded Sex Assigned at Not on file Legal Sex Female 12:26 PM EST Gender Identity Not on file Sexual Orientation Not on file documented as of this encounter Plan of Treatment Not on file documented as of this encounter Visit Diagnoses Not on filedocumented in this encounter
--- OUTSIDE RECORDS SUMMARY | 2025-01-20 09:00 | XMS_ITS ---
Author Organization [facility] in [place] Address [address] [place] [address] Care Team Providers Care Angle Dozer Operator Name Role Phone Cheyanne Timmons Primary Care Provider Allergies Allergen (clinical drug ingredient) Drug/Non Drug Allergy documented on EMR Reaction Allergy Type Onset Date Status chlorhexidine Chlorhexidine Gluconate hives Drug Allergy Active REASON FOR VISIT [facility] D/C-01/11 Sepsis, Cellulitis LLE, Currently on oral and IV atb at [facility]. Yordan and SeenDr. Ludivina corona yesterday. She says after this round of ATB is complete, Dr. Florence wants her on them another 3 weeks Medications Medication SIG (Take, Route, Frequency, Duration) Notes Start Date End Date Status oxyCODONE HCl 5 MG 1 tablet as needed Orally every 6 hrs Active Amitriptyline HCl 25 MG TAKE 1 TABLET BY MOUTH EVERY DAY AT BEDTIME FOR 30 DAYS; Duration: 30 Not-Taking Gabapentin 300 MG 1 capsule Orally HS; Duration: 30 days 01/20/2025 Active Excedrin Migraine 250-250-65 MG 2 tablets Orally Once a day Active FLUoxetine HCl 40 MG TAKE 1 CAPSULE BY MOUTH EVERY DAY FOR 90 DAYS; Duration: 30 Not-Taking Melatonin 5 MG 2 tablet in the evening Orally at bedtime Active Social History Tobacco [...] in quitting? Not ready to shayan t AUDIT-C (Standard) Question Answer Notes Did you have a drink containing alcohol in the p ast year? No Points 0 Interpretation Negative Problems Problem Type SNOMED Code ICD Code Onset Dates Problem Status W/U Status Risk Notes Problem Elevated blood pressure (11081766) Elevated blood pressure (I10) Active confirmed Vital Signs Weight 451 lbs 01/20/2025 Height 65 in 01/20/2025 Blood pressure systolic 138 mm Hg 01/21/20 25 Blood pressure diastolic 90 mm Hg 025 BMI 75.04 kg/m2 01/20/2025 Encounters Encounter Location Date Provider Diagnosis [facility] [address] [place] [address] 01/20/2025 Cheyanne Timmons Neuropathic pain M79.2 ; Elevated blood pressure I10 ; Cellulitis L03.90 and Wellness examination Z00.00 Assessments Encounter Date Diagnosis (ICD Code) Assessment Notes Treatment Notes Treatment Clinical Notes Section Notes 01/20/2025 Neuropathic pain (ICD-10 - M79.2) CSA signed OARRS reviewed 01/20/2025 Elevated blood pressure (ICD-10 - I10) BP check 2 weeks 01/20/2025 Cellulitis (ICD-10 - L03.90) continue fu ID and wound care improving slowly 01/20/2025 Wellness examination (ICD-10 - Z00.00) Plan Of Treatment Medication Medication Name Sig Start Date Stop Date Notes Gabapentin 300 MG 1 capsule Orally HS; Duration: 30 days 1 Treatment Notes Assessment Notes Neuropathic pain CSA signed OARRS reviewed Elevated blood pressure BP check 2 weeks Cellulitis continue fu ID and wound care improving slowly Pending Test Test Name Order Date HEMOGLOBIN A1C (GLYCO) 01/20/2025 IRON, TOTAL 01/20/2025 LIPID PANEL (CHOL/TRIG/HDL/LDL) 01/21/20 25 VITAMIN D, 25 LEVEL (TOTAL) 01/20/2025 Insulin Level 01/20/2025 THYROID PANEL (T4/TSH/FREE T3) CMP (COMP MET MORALES) w/eGFR CKD-EPI 10/02/ 2025 CBC WITH DIFF 01/20/2025 Next Appt Details Follow Up: 2 Weeks,prnLeonidas on: Provider Name:Cheyanne Munguia Angelame chavez, 01/31/2025 01:30:00 PM, [address] [facility], [place], [place], [address], Progress Notes * Fatoumata KIMaDOB:1985 (39 yo F)Acc No.[id number]:01/20/2025 Progress Note Patient: Marie FORD Provider: Sisi Timmons ([facility]), BOILER PLANT WORKER :1985 A ge:39 Y S ex:Female Date:01/20/2025 Address:[address] [facility] [id number] Check In:12:58 PM ESTCheck O ut:01:25 PM EST Subjective: * Chief Complaints: * 1 . TCM [facility] D/C-01/11 Sepsis, Cellulitis LLE. 2. Currently on oral and IV atb at [facility]. Ivanz and zyvox. 3. Seen Dr. Florence yesterday. She says after this round of ATB is complete, Dr. Florence wants her on them another 3 weeks. * HPI: G eneral: wound care BID saw Dr Florence yesterday pain in calf feels like electrical bugs tingling zappy comes and goes worse at night. D epression Screening: PHQ-9 L ittle interest or pleasure in doing things?More than half the days F eeling down, depressed, or hopeless M ore than half the days T rouble falling or staying asleep, or sleeping too much N early every day F eeling tired or having little energy N early every day P oor appetite or overeating N early every day F eeling bad about yourself or that you are a failure, or have let yourself or your family down S everal days T rouble concentrating on things, such as reading the newspaper or watching television M ore than half the days M oving or speaking so slowly that other people could have noticed; or the opposite, being so fidgety or restless that you have been moving around a lot more than usual M ore than half the days T houghts that you would be better off or of hurting yourself in some way N ot at all T otal Score 1 8 I nterpretation M oderately Severe Depression * ROS: G eneral/Constitutional: Fever d enies. H eadache d enies. W eight loss?denies. O phthalmologic: Discharge d enies. E ye Pain d enies. I tching and redness d enies. E NT: Nasal discharge d enies. N edilson congestion d enies.?Sore throat d enies. C ardiovascular: Chest tightness/ heavy pressure d enies. R apid heart rate d enies. S welling of extremities d enies. C hest pain d enies. ? R espiratory: Productive cough d enies. C hest pain d enies. C ough d enies. S hortness of breath d enies. W heezing d enies. ? G astrointestinal: Abdominal pain d enies. C onstipation d enies. D ecreased appetite d enies. D iarrhea d enies. N ausea d enies. V omiting?denies. G enitourinary: Urinary incontinence d enies. P ainful urination d enies. M usculoskeletal: Back pain d enies. N nancy pain d enies. M uscle aches d enies. S kin: Patient complaining of l eft lower ext cellulitis, leg wrapped, improving. R jus d enies. S kin lesion(s) d enies. * Active Problem List Z86.69 Personal history of other diseases of the nervous system and sense organs Modified On:08/14/2022U Status:confirmed E66.9 Obesity Modified On:08/14/2022/U Status:confirmed F41.9 Anxiety Modified On:08/14/2022U Status:confirmed M19.90 Arthritis Modified On:08/14/2022/U Status:confirmed F32.9 Depression Modified On:08/14/2022U Status:confirmed G47.00 Insomnia Modified On:08/14/2022 Status:confirmed G43.909 Migraine Modified On:08/14/2022 Status:confirmed J01.90 Acute sinusitis Modified On:08/14/2022 Status:confirmed F17.200 Current smoker Modified On:08/14/2022 Status:confirmed G25.81 Restless legs Modified On:08/14/2022 Status:confirmed I49.9 Irregular heart beat Modified On:08/14/2022 Status:confirmed Z68.44 BMI 60.0-69.9, adult Modified On:08/14/2022 Status:confirmed Z00.00 Wellness examination Modified On:08/14/2022 Status:confirmed K21.9 Gastro-esophageal re flux disease Modified On:08/14/2022 Status:confirmed U07.1 COVID-19 virus infec tion Modified On:08/14/2022 Status:confirmed M54.50 Low back pain, unspe cified Modified On:08/14/2022 Status:confirmed I10 Elevated blood press ure Modified On:01/20/2025 Status:confirmed * Medical History: O besity, Irregular heart beat, BMI 60.0-69.9, adult, Restless legs, COVID-19 virus infection, Insomnia, Gastro-esophageal reflux disease, Migraine, Wellness examination, Low back pain, unspecified, Personal history of other diseases of the nervous system and sense organs, Arthritis, Depression, Anxiety, Current smoker. * Surgical History: c -section x2 , gallbladder removal , tonsillectomy . * Hospitalization/Major Diagno stic Procedure: T BH- cellulitis and Sepsis . * Family History: F ather: , diagnosed with Hypertension. M other: alive, bipolar. B rother(s): alive. S ister(s): alive, 1 sister with blot clots. 1 brother(s) , 5 sister(s) . . * Social History: T obacco Use: T obacco Use/Smoking P atient is a c urrent smoker W hen did you start smoking? 0 08/07/2005 H ow often do you smoke cigarettes? e very day H ow many cigarettes a day do you smoke? 6 -10 H ow soon after you wake up do you smoke your first cigarette? 6 -30 minutes A re you interested in quitting? N ot ready to quit D rug/Alcohol: A USHA-C (Standard) D id you have a drink containing alcohol in the past year? N o P oints 0 I nterpretation N egative * Medications: T aking Excedrin Migraine(Qfxaeni-Cqjtkxfjyvbpk-Xamjqiiy) 250-250-65 MG Tablet 2 tablets Orally Once a day , Taking Melatonin 5 MG Tablet 2 tablet in the evening Orally at bedtime , Taking oxyCODONE HCl 5 MG Tablet 1 tablet as needed Orally every 6 hrs , Not-Taking/PRN Amitriptyline HCl 25 MG Tablet TAKE 1 TABLET BY MOUTH EVERY DAY AT BEDTIME FOR 30 DAYS , Not-Taking/PRN FLUoxetine HCl 40 MG Capsule TAKE 1 CAPSULE BY MOUTH EVERY DAY FOR 90 DAYS , Discontinued Omeprazole 40 MG Capsule Delayed Release TAKE 1 CAPSULE BY MOUTH EVERY DAY 30 MINUTES BEFORE MORNING MEAL , Discontinued Ondansetron HCl 4 MG Tablet 1 tablet Orally BID prn , Medication List reviewed and reconciled with the patient * Allergies: C hlorhexidine Gluconate: hives - Criticality High. Objective: * Vitals: W t:451lbs, Ht: 65 in, BP:138/90mm Hg, BMI:75.04Index, Ht-cm: 165.1 cm, Wt-k.57 kg. * Examination: G eneral Examinations: GENERAL APPEARANCE: a lert and oriented, in no acute distress, morbidly obese. EYES: c onjunctiva normal, sclera non-icteric. LUNGS: d iminished breath sounds throughout. CARDIO: r egular rate and rhythm, S1, S2 normal. MUSCULOSKELETAL: d ecreased ROM due to body habitus. SKIN: d ressing intact to L LE. Assessment: * Assessment: 1. N europathic pain - M79.2 (Primary) 2 . E levated blood pressure - I10? 3. C windy - L03.90 4 . W ellness examination - Z00.00? Plan: * Treatment: 2. E levated blood pressure Notes: BP check 2 weeks 3. Khloe temple Notes: continue fu ID and wound care improving slowly 4. W ellness examination L AB: HEMOGLOBIN A1C (GLYCO) L AB: IRON, TOTAL L AB: LIPID PANEL (CHOL/TRIG/HDL/LDL) L AB: VITAMIN D, 25 LEVEL (TOTAL) L AB: Insulin Level L AB: THYROID PANEL (T4/TSH/FREE T3) L AB: CMP (COMP MET MORALES) w/eGFR CKD-EPI L AB: CBC WITH DIFF * Procedure Codes: 9 9495 TRANSITIONAL CARE MGMT SV * Preventive Medicine: Screenings/Counseling: B [place] ACTION PLAN Above Normal BMI Follow-up D ietary management education, guidance, and counseling See treatment section of progress note for complete details of management plan. T OBACCO ACTION PLAN Patient counselled on the dangers of tobacco use and urged to quit. 1 . * Follow Up: 2 Weeks,prn * * Electronically signed by Huyen Timmons NP, EDUCATIONAL RECRUITER.BOILER PLANT WORKER.[id number] on 01/21/2025 at 01:03 PM EDT Sign off status: Completed Visit Status: C HK (Check Out) true * Provider: Sisi Timmons ([facility]), BOILER PLANT WORKER Date: 1 Generated for Cary whitaker/Josué/eTransmitting on: 1 12:11 PM EDT History and Physical Notes * HPI (History of Present Illness) Category Sub-Category Detail Notes Category Not es Depression Screening PHQ-9 Little inte rest or pleasure in doing things: More than half the days Feeling down, depressed, or hopeless: Mo re than half the days Trouble falling or staying asleep, or sl eeping too much: Nearly every day Feeling tired or having little energy: N early every day Poor appetite or overeating: Nearly ever y day Feeling bad about yourself o r that you are a failure, or have let yourself or your family down: Several days Trouble concentrating on thi ngs, such as reading the newspaper or watching television: More than half the days Moving or speaking so slowly that other people could have noticed; or the opposite, being so fidgety or restless that you have been moving around a lot more than usual: More than half the days Thoughts that you would be b camelia off or of hurting yourself in some way: Not at all Total Score: 18 Interpretation: Moderately Severe Depres janie General wound care BID saw Dr Florence yesterday pain in calf feels like electrical bugs tingling zappy comes and goes worse at night Examination Category Sub-Category Detail Notes Category Not es General Examinations GENERAL APPEARANCE: alert a nd oriented, in no acute distress, morbidly obese EYES: conjunctiva normal, sclera non-icteric EARS: NOSE: THROAT: CARDIO: regular rate and rhy thm, S1, S2 normal LUNGS: diminished breath so unds throughout ABDOMEN: SKIN: dressing intact to L LE BACK: MUSCULOSKELETAL: decreased ROM due to body habitus LYMPH NODES:
--- OUTSIDE RECORDS SUMMARY | 2025-01-20 10:27 | XMS_ITS ---
Author Organization The [facility] in [place] Address [address] [place] [address] Care Team Providers Care Infection Control Preventionist Name Role Phone Cheyanne Timmons Primary Care Provider REASON FOR VISIT yeast infection Medications Medication SIG (Take, Route, Fr equency, Duration) Notes Start Date End Date Status Fluconazole 150 MG 1 tablet Orally once ; Duration: 1 days 01/20/2025 Active Encounters Encounter Location Date Provider Diagnosis [facility] [address] [place] [address] 01/20/2025 Cheyanne Timmons Plan Of Treatment Medication Medication Name Sig Start Date Stop Date Notes Fluconazole 150 MG 1 tablet Orally once; Duration: 1 days 01/20/2025 Next Appt Details Provider Name:Cheyanne chavez, 01/31/2025 01:30:00 PM, [address] [place], [address], Progress Notes * Renetta KIMB:1985 (39 yo F)Acc No.[id number]:01/20/2025 Patient: Alana CARMELAVIDHIMarie GARCIAS :1985 A ge:39 Y S ex:Female Address:[address] [place] [address] * Refills Start Fluconazole Tablet, 150 MG, Orally, 1, 1 tablet, once, 1 days, Refills=1 Subjective: * Chief Complaints: * Y east infection * Medical History: * Surgical History: * Hospitalization/Major Diagno stic Procedure: * Medications: Objective: * Vitals: * Physical Examination: Assessment: Plan: * Treatment: * Procedure Codes: * true * Date: Generated for Cary whitaker/Josué/Yamile on: 12:12 PM EDT
--- OUTSIDE RECORDS SUMMARY | 2025-01-28 05:51 | XMS_ITS ---
Author Organization The [facility] in [place] Address [address] [place] [address] Care Team Providers Care Director Of Early Childhood Education Name Role Phone Cheyanne Timmons Primary Care Provider REASON FOR VISIT yeast infection Medications Medication SIG (Take, Route, Fr equency, Duration) Notes Start Date End Date Status Fluconazole 150 MG 1 tablet Orally once ; Duration: 1 days 01/20/2025 Active Encounters Encounter Location Date Provider Diagnosis [facility] [address] [place] [address] 01/28/2025 Cheyanne Timmons Plan Of Treatment Medication Medication Name Sig Start Date Stop Date Notes Fluconazole 150 MG 1 tablet Orally once; Duration: 1 days 01/20/2025 Next Appt Details Provider Name:Cheyanne chavez, 01/31/2025 01:30:00 PM, [address] [place], [address], Progress Notes * Renetta KIMB:1985 (39 yo F)Acc No.[id number]:01/28/2025 Patient: Alana CARMELAWINDYMarie Varma :1985 A ge:39 Y S ex:Female Address:[address] [place] [address] * Refills Refill Fluconazole Tablet, 150 MG, [...]
--- OUTSIDE RECORDS SUMMARY | 2025-01-31 12:11 | XMS_ITS | Clinical Summary ---
Author Organization [facility] Address [address], [address] [place] [address] Care Team Providers Care Post Adoption Coordinator Name Role Phone Unavailable Primary Care Provider [...]
--- OUTSIDE RECORDS SUMMARY | 2025-01-31 12:12 | XMS_ITS | Patient Health Record ---
Author Organization [facility] [place] Address [address] [place] [address] Care Team Providers Care Rope Coiling Machine Operator Name Role Phone Cheyanne Timmons Primary Care Provider [phone] Allergies Allergen (clinical drug ingredient) Drug/Non Drug Allergy documented on EMR Reaction Allergy Type Onset Date Status chlorhexidine Chlorhexidine Gluconate hives Drug Allergy Active Results Component Value Reference Range Notes CBC AUTO DIFF Reviewed date:01/06/2025 10:48:27 AM Interpretation: Performing Lab: Notes/Report: [facility] , White Blood Count 17.5 4.0-11.0 10 [...] 3/uL Performing Lab: see note ML - [facility] PROF 14(COMP METB) Reviewed date:01/06/2025 10:48:27 AM Interpretation: Performing Lab: Notes/Report: [facility] , Sodium 135 136-145 mmol/L Potassium [...] Performing Lab: see note ML - [facility] LB Blood Culture 1 Reviewed date:01/11/2025 04:31:11 PM Interpretation: Performing Lab: Notes/Report: [facility] , Blood Culture 1 See Below For Report Blood Culture 1 NG5D NO GROWTH AT 5 DAYS.^NO GROWTH AT 5 DAYS. Performing Lab: see note ML - [facility] LB Blood Culture 2 Reviewed date:01/11/2025 04:31:11 PM Interpretation: Performing Lab: Notes/Report: [facility] , Blood Culture 2 See Below For Report Blood Culture 2 NG5D NO GROWTH AT 5 DAYS.^NO GROWTH AT 5 DAYS. Performing Lab: see note - [facility] LB HCG Qualitative* Reviewed date:01/06/2025 10:48:27 AM Interpretation: Performing Lab: Notes/Report: [facility] , HCG Qualitative NEGATIVE NEGATIVE Performing Lab: see note - [facility] LB XR tibia fibula LT 2V Reviewed date:01/06/2025 10:48:27 AM Interpretation: Performing Lab: Notes/Report: Source Facility: [facility] [place] [address] XRay Report Signed Patient: MARIE KIM MR#: [id number] : 1985 Acct:[id number] Age/Sex: 39 / F ADM Date: 01/05/25 Loc: ER Attending Dr: Ordering Physician: Shelley vAila Date of Service: 01/05/25 Procedure(s): XR tibia fibula LT 2V Accession Number(s): [id number] cc: CHEYANNE TIMMONS ; Shelley Avila [place] [address] Patient Name: MARIE KIM MRN: [facility]:[id number] date: 1985 Sex: F Assigned Patient Location: ER Current Patient Location: ER Accession/Order Number: [id number] Exam Date: 01/05/2025 21:48 Report Date: 01/05/2025 [...] Mcgarry M.D. 01/05/2025 10:01 PM Dictation Location: [place] [address] Electronically authenticated by: [id number] Y Date: 01/05/2025 22:01 Dictated By: Bran Mcgarry M.D. Signed By: 01/05/252203 DD/ 00 TD/TT: Gelatin Dynamite Packing Operator: LACTATE or LACTIC ACID Reviewed date:01/06/2025 10:48:27 AM Interpretation: Performing Lab: Notes/Report: [facility] , Lactate/Lactic Acid 1.4 0.4-2.0 mmol/L Performing Lab: see note ML - [facility] LB PROF 14(COMP METB) Reviewed date:01/06/2025 10:48:27 AM Interpretation: Performing Lab: Notes/Report: [facility] , Sodium 134 136-145 mmol/L Potassium 3.5 [...] Performing Lab: see note ML - [facility] LB CBC no Diff (Hemogram) Reviewed date:01/06/2025 10:48:27 AM Interpretation: Performing Lab: Notes/Report: [facility] , White Blood Count 15.1 4.0-11.0 [...] 10.2 9.5-13.5 fL Performing Lab: see note - [facility] LB LACTATE or LACTIC ACID Reviewed date:01/06/2025 10:48:27 AM Interpretation: Performing Lab: Notes/Report: [facility] , Lactate/Lactic Acid 0.8 0.4-2.0 mmol/L Performing Lab: see note - [facility] LB CT lower leg LT wo con Reviewed date:01/07/2025 10:31:24 AM Interpretation: Performing Lab: Notes/Report: Source Facility: [place] [address] CT Scan Report Signed Patient: MARIE KIM MR#: [id number] : 1985 Acct:[id number] Age/Sex: 39 / F ADM Date: 01/05/25 Loc: [place] 219-[address]: Mali Austin M.D. Ordering Physician: Mali Austin M.D. Date of Service: 01/07/25 Procedure(s): CT lower leg LT wo con Accession Number(s): [id number] cc: CHEYANNE TIMMONS [place] [address] Patient Name: MARIE KIM MRN: [facility]:[id number] date: 1985 Sex: F Assigned Patient Location: [place] Current Patient Location: [place] Accession/Order Number: [id number] Exam Date: 01/07/2025 09:30 Report Date: 01/07/2025 [...] Richmond M.D. 01/07/2025 10:13 AM Dictation Location: [place] [address] Electronically authenticated by: [id number] Y Date: 01/07/2025 10:13 Dictated By: Jaquelin Richmond M.D. Signed By: 01/07/25 1016 DD/ 1013 TD/TT: Gelatin Dynamite Packing Operator: PROF GIORGIO Escobedo (TAYLER DRAKE) Reviewed date:01/10/2025 08:31:32 AM Interpretation: Performing Lab: Notes/Report: [facility] , Sodium 139 136-145 mmol/L Potassium 3.2 [...] Performing Lab: see note ML - [facility] LB VANCOMYCIN TROUGH Reviewed date:01/10/2025 08:31:32 AM Interpretation: Performing Lab: Notes/Report: [facility] , Vancomycin Trough 16.1 5.0-20.0 ug/mL Performing Lab: see note ML - [facility] LB Aerobic Culture Reviewed date:01/11/2025 09:30:28 AM Interpretation: Performing Lab: Notes/Report: [facility] , Aerobic Culture See Below For Report Aerobic Culture Aerobic Culture No growth after 18-24 hours. Aerobic Culture Aerobic Culture Aerobic Culture Aerobic Culture No growth in 36 - 48 hours. Aerobic Culture Aerobic Culture Performed at: [facility] Aerobic Culture Aerobic Culture [address] [place], [place] [id number] Aerobic Culture Aerobic Culture Motorboat Mechanic: Rafat Johnson PhD, Phone: [phone] Aerobic Culture Performing Lab: see note - [facility] LB SEE REPORT - Vice President Fixed Income Id information not found for OBX-specific compliance assistant legend PROF CHEM 8 (BAS METB) Reviewed date:01/10/2025 08:31:32 AM Interpretation: Performing Lab: Notes/Report: [facility] , Sodium 141 136-145 mmol/L Potassium 3.3 [...] Performing Lab: see note ML - [facility] LB VANCOMYCIN TROUGH Reviewed date:01/11/2025 10:59:12 AM Interpretation: Performing Lab: Notes/Report: [facility] , Vancomycin Trough 8.8 5.0-20.0 ug/mL Performing Lab: see note ML - [facility] LB CRP Reviewed date:01/12/2025 08:42:48 AM Interpretation: Performing Lab: Notes/Report: [facility] , C Reactive Protein 12.13 <=0.50 mg/dL Performing Lab: see note ML - [facility] PROF CHEM 8 (BAS METB) Reviewed date:01/12/2025 08:42:48 AM Interpretation: Performing Lab: Notes/Report: [facility] , Sodium 135 136-145 mmol/L Potassium 3.8 [...] Performing Lab: see note ML - [facility] LB CBC no Diff (Hemogram) Reviewed date:01/12/2025 08:42:48 AM Interpretation: Performing Lab: Notes/Report: [facility] , White Blood Count 9.5 4.0-11.0 10 [...] Performing Lab: see note ML - [facility] LB CRP Reviewed date:01/19/2025 08:33:20 AM Interpretation: Performing Lab: Notes/Report: [facility] , C Reactive Protein 3.43 <=0.50 mg/dL Performing Lab: see note ML - [facility] LB PROF CHEM 8 (BAS METB) Reviewed date:01/19/2025 08:33:20 AM Interpretation: Performing Lab: Notes/Report: [facility] , Sodium 138 136-145 mmol/L Potassium 4.0 [...] Performing Lab: see note ML - [facility] LB CBC AUTO DIFF Reviewed date:01/26/2025 10:50:47 AM Interpretation: Performing Lab: Notes/Report: [facility] , White Blood Count 6.6 4.0-11.0 10 3/uL Red Blood Count 4.55 4.20-5.40 10 6/uL Hemoglobin 11.5 12.0-16.0 g/dL Hematocrit 37.0 36.0-48.0 % Mean Corpuscular Volume 81.3 81.0-99.0 fL Mean Corpuscular Hemoglobin 25.3 26.7-34.0 pg Mean Corpuscular HGB Conc 31.1 29.9-35.2 g/dL Red Cell Distribution Width 15.2 11.0-15.0 % Platelet Count 324 150-450 10 3/uL Mean Platelet Volume 9.6 9.5-13.5 fL Neutrophils Percent Auto 59.3 43.0-75.0 % Lymphocytes Percent Auto 29.3 20.5-60.0 % Monocytes Percent Auto 6.2 1.7-12.0 % Eosinophils Percent Auto 3.5 0.9-7.0 % Basophils Percent Auto 1.4 0.2-2.0 % Immature Granulocytes Pct Auto 0.3 0.0-0.5 % Neutrophils Absolute Auto 3.9 1.4-6.5 10 3/uL Lymphocytes Absolute Auto 1.9 1.2-3.8 10 3/uL Monocytes Absolute Auto 0.4 0.3-0.8 10 3/uL Eosinophils Absolute Auto 0.2 0.0-0.7 10 3/uL Basophils Absolute Auto 0.1 0.0-0.1 10 3/uL Immature Granulocytes Abs Auto 0.02 0.00-0.03 10 3/uL Performing Lab: see note ML - [facility] FREE T3 Reviewed date:01/26/2025 10:50:47 AM Interpretation: Performing Lab: Notes/Report: [facility] Free T3 2.29 2.18-3.98 pg/mL Performing Lab: see note - [facility] GLYCOHEMOGLOBIN A1C Reviewed date:01/26/2025 10:50:47 AM Interpretation: Performing Lab: Notes/Report: [facility] , Glycohemoglobin A1C 5.8 4.5-6.2 % ADA RECOMMENDED LIMIT 4.0 - 6.0 ADA THERAPEUTIC TARGET < 7.0 ACTION SUGGESTED > 7.0 Estimated Average Glucose 120 Performing Lab: see note - [facility] INSULIN Reviewed date:01/26/2025 10:50:47 AM Interpretation: Performing Lab: Notes/Report: [facility] , Insulin 20.9 2.6-24.9 uIU/mL Performed at: [facility] [address] [id number] Motorboat Mechanic: Rafat Johnson PhD, Phone: [phone] Performing Lab: see note - [facility] LB IRON Reviewed date:01/26/2025 10:50:47 AM Interpretation: Performing Lab: Notes/Report: [facility] , Iron 53.0 50.0-170.0 ug/dL Performing Lab: see note ML - [facility] LB LIPID PROFILE Reviewed date:01/26/2025 10:50:47 AM Interpretation: Performing Lab: Notes/Report: [facility] , Triglycerides 310 <=150 mg/dL Cholesterol 166 <=200 mg/dL HDL Cholesterol 37 40-60 mg/dL > or =60 mg/dl - LOW CARDIOVASCULAR RISK <40 mg/dl - HIGH CARDIOVASCULAR RISK LDL Cholesterol Calculated 67.0 <100 mg/dl OPTIMAL 100-129 mg/dl NEAR OR ABOVE OPTIMAL 130-159 mg/dl BORDERLINE HIGH 160-189 mg/dl HIGH >190 mg/dl VERY HIGH VLDL CHOLESTEROL 62.0 Chol HDL Ratio 4.5 3.3 - 4.4 LOW RISK 4.4 - 7.1 AVERAGE RISK 7.1 - 11.0 MODERATE RISK >11.0 HIGH RISK Performing Lab: see note ML - [facility] LB PROF 14(COMP METB) Reviewed date:01/26/2025 10:50:47 AM Interpretation: Performing Lab: Notes/Report: [facility] , Sodium 139 136-145 mmol/L Potassium 4.3 3.5-5.1 mmol/L Chloride 103 98-107 mmol/L Carbon Dioxide 26.9 21.0-32.0 mmol/L Anion Gap 13.4 Glucose 91 74-106 mg/dL Blood Urea Nitrogen 13.0 7.0-18.0 mg/dL Creatinine 1.13 0.55-1.02 mg/dL Estimated GFR ( Fidelia >60 >=60 mL/min/1.73m 2 Estimated GFR (Non- Brisa 54 >=60 mL/min/1.73m 2 BUN Creatinine Ratio 11.5 Calcium 8.6 8.5-10.1 mg/dL Bilirubin Total 0.4 0.2-1.0 mg/dL Aspartate Amino Transferase 34 15-37 U/L Alanine Aminotransferase 52 14-59 U/L Alkaline Phosphatase 104 46-116 U/L Total Protein 7.6 6.4-8.2 g/dL Albumin Level 3.3 3.4-5.0 g/dL Globulin 4.3 Albumin Globulin Ratio 0.8 Performing Lab: see note ML - [facility] LB T4 Reviewed date:01/26/2025 10:50:47 AM Interpretation: Performing Lab: Notes/Report: [facility] , T4 Thyroxine 8.40 4.80-13.90 ug/dL Performing Lab: see note ML - [facility] LB TSH Reviewed date:01/26/2025 10:50:47 AM Interpretation: Performing Lab: Notes/Report: [facility] , Thyroid Stimulating Hormone 2.050 0.358-3.740 uIU/mL Performing Lab: see note ML - [facility] LB VITAMIN D 25 [place] Reviewed date:01/27/2025 03:36:03 PM Interpretation: Performing Lab: Notes/Report: [facility] , Vitamin D 23.3 <20 ng/mL Vit D deficient 20-<30 ng/mL Vit D insufficient 30-100 ng/mL Vit D sufficient >100 ng/mL Potential Toxicity Performing Lab: see note - [facility] LB CBC AUTO DIFF Reviewed date:01/19/2025 08:33:20 AM Interpretation: Performing Lab: Notes/Report: [facility] , White Blood Count 6.8 4.0-11.0 10 [...] Performing Lab: see note ML - [facility] LB CBC no Diff (Hemogram) Reviewed date:01/10/2025 08:31:32 AM Interpretation: Performing Lab: Notes/Report: [facility] , White Blood Count 11.1 4.0-11.0 10 [...] Performing Lab: see note ML - [facility] LB PROF CHEM 8 (BAS METB) Reviewed date:01/10/2025 08:31:32 AM Interpretation: Performing Lab: Notes/Report: [facility] , Sodium 139 136-145 mmol/L Potassium 3.6 [...] Performing Lab: see note ML - [facility] LB Aerobic Culture Reviewed date:01/17/2025 09:13:45 AM Interpretation: Performing Lab: Notes/Report: [facility] , Aerobic Culture See Below For Report Aerobic Culture Aerobic Culture No growth after 18-24 hours. Aerobic Culture Aerobic Culture Aerobic Culture Aerobic Culture No growth in 36 - 48 hours. Aerobic Culture Aerobic Culture Performed at: [facility] Aerobic Culture Aerobic Culture [address] [place], [place] [id number] Aerobic Culture Aerobic Culture Motorboat Mechanic: Rafat Johnson PhD, Phone: [phone] Aerobic Culture Performing Lab: see note LC - [facility] LB SEE REPORT - Vice President Fixed Income Id information not found for OBX-specific compliance assistant legend Anaerobic Culture Reviewed date:01/17/2025 09:13:45 AM Interpretation: Performing Lab: Notes/Report: [facility] , Anaerobic Culture See Below For Report Anaerobic Culture Anaerobic Culture No aerobic or anaerobic growth in 72 hours. Anaerobic Culture Performing Lab: see note - [facility] LB LACTATE or LACTIC ACID Reviewed date:01/06/2025 10:48:27 AM Interpretation: Performing Lab: Notes/Report: [facility] , Lactate/Lactic Acid 4.9 0.4-2.0 mmol/L RESULT S CALLED TO SAKSHI RIZZO RN Performing Lab: see note ML - [facility] LB Reason For Referral No Information Medications [...] Problem Nervous system and sense organ diseases (848908602) Personal history of other diseases of the nervous system and sense organs (Z86.69) Active confirmed Problem Obesity (135444583) Obesity (E66.9) Active confirmed Problem Anxiety (12125846) Anxiety (F41.9) Active confirmed Problem Arthritis (5170395) Arthritis (M19.90) Active confirmed Problem Depression (343910998) Depression (F32.9) Active confirmed Problem Insomnia (336566457) Insomnia (G47.00) Active confirmed Problem Migraine (01378834) Migraine (G43.909) Active confirmed Problem Acute sinusitis (70794735) Acute sinusitis (J01.90) Active confirmed Problem Current smoker (80578974) Current smoker (F17.200) Active confirmed Problem Restless legs (70920945) Restless legs (G25.81) Active confirmed Problem Irregular heart beat (727867386) Irregular heart beat (I49.9) Active confirmed Problem Body mass index 40+ - morbidly obese (663846868) BMI 60.0-69.9, adult (Z68.44) Active confirmed Problem Annual wellness visit (984408686781609 ) Wellness examination (Z00.00) Active confirmed Problem Gastro-esophagea l reflux disease (403761512) Gastro-esophage al reflux disease (K21.9) Active confirmed Problem Elevated blood pressure (02673850) Elevated blood pressure (I10) Active confirmed Problem Disease caused by Severe acute respiratory syndrome coronavirus 2 (disorder) (944188027) COVID-19 virus infection (U07.1) Active confirmed Problem Low back pain (446357452) Low back pain, unspecified (M54.50) Active confirmed Vital Signs Blood pressure diastolic 90 mm Hg 01/20/2025 Height 65 in 01/20/2025 Blood pressure systolic 138 mm Hg 01/20/2025 Weight 451 lbs 01/20/2025 BMI 75.04 kg/m2 01/20/2025 Encounters Encounter Location Date Provider Diagnosis [facility] [address] [place] [address] 02/24/2024 Cheyanne Timmons Migraine G43.909 [facility] [address] [place] [address] 01/20/2025 Cheyanne Timmons Neuropathic pain M79.2 ; Elevated blood pressure I10 ; Cellulitis L03.90 and Wellness examination Z00.00 [facility] [address] [place] [address] 02/24/2024 Cheyanne Timmons Wellness examination Z00.[address] [address] 02/26/2024 Cheyanne Timmons [facility] [address] [place] [address] 01/11/2025 Cheyanne Timmons [facility] [address] [place] [address] 01/20/2025 Cheyanne Timmons [facility] [address] [place] [address] 01/28/2025 Cheyanne Timmons Assessments Encounter Date Diagnosis (ICD [...] Name Order Date CMP (COMPLETE METABOLIC PANEL) HEMOGLOBIN A1C (GLYCO) 02/24/2024 HEMOGLOBIN A1C (GLYCO) 01/20/2025 INSULIN, TOTAL 02/24/2024 IRON, TOTAL 01/20/2025 LIPID PANEL (CHOL/TRIG/HDL/LDL) 02/24/20 24 LIPID PANEL (CHOL/TRIG/HDL/LDL) 01/21/20 25 CBC WITH DIFF 02/24/2024 VITAMIN D, 25 LEVEL (TOTAL) 01/20/2025 Insulin Level 01/20/2025 THYROID PANEL (T4/TSH/FREE T3) 5 THYROID PANEL (T4/TSH/FREE T3) 4 CMP (COMP MET MORALES) w/eGFR CKD-EPI 2024 CBC WITH DIFF 01/20/2025 Next Appt Details Provider Name:Cheyanne chavez, 01/31/2025 01:30:00 PM, [address] [place], [address], Insurance Providers Payer Name Payer Address Payer Phone Subscriber Number Group Number Insured Name Patient Relationship to Insured Coverage Start Date Coverage End Date [employer] ACC[employer] PPO PLUS LOCAL PLAN [address] [place] [phone] [id number] Tejinder Kim Spouse - patient is the [...] F17.200 Surgical History Surgery Date(Month/Year) gallbladder removal x2 tonsillectomy Hospitalization History Reason Date(Month/Year) [facility]- cellulitis and Sepsis
== END 2025-01-31 10:01 | disposition home or self-care (01) ==
LOC: WC 12:10
PROVIDERS: PCP Nurse Practitioner Family; Visit Provider Physician Assistant
DX: L97.822 Non-pressure chronic ulcer of other part of left lower leg with fat layer exposed (principal)
CPT/HCPCS: 29581

== ENCOUNTER 2025-02-02 13:09 | Outpatient (OUT) | payer BC, SELFPAY ==
--- OUTSIDE RECORDS SUMMARY | 2012-01-14 07:30 | XMS_ITS | Encounter Summary ---
Author Organization [facility] Address [address] [address], [address] [place] [address] Care Team Providers Care Help Desk Internship Name Role Phone Unavailable Primary Care Provider Unavailabl e Encounter Details Date Type Department Care Team (Late st Contact Info) Description 01/14/2012 7:30 AM EDT Hospital Encounter [facility] [address] [phone] Ismael Castle MD 27 [facility] [address] [place] [phone] Social History Tobacco Use Types Packs/Day Years [...]
--- OUTSIDE RECORDS SUMMARY | 2025-01-20 09:00 | XMS_ITS ---
Author Organization The [facility] in [place] Address [address] [place] [address] Care Team Providers Care Social Work Specialist Name Role Phone Cheyanne Timmons Primary Care Provider Allergies Allergen (clinical drug ingredient) Drug/Non Drug Allergy documented on EMR Reaction Allergy Type Onset Date Status chlorhexidine Chlorhexidine Gluconate hives Drug Allergy Active [facility]11 Sepsis, Cellulitis LLE, Currently on oral and IV atb at [facility]. Yordan and SeenDr. Ludivina corona yesterday. She [...] Status Risk Notes Problem Elevated blood pressure (19559008) Elevated blood pressure (I10) Active confirmed Vital Signs Weight 451 lbs 01/20/2025 Height 65 in 01/20/2025 Blood pressure systolic 138 mm Hg 01/21/20 25 Blood pressure diastolic 90 mm Hg 025 BMI 75.04 kg/m2 01/20/2025 Encounters Encounter Location Date Provider Diagnosis [facility] [address] [place] [address] 01/20/2025 Cheyanne Timmons Neuropathic pain M79.2 ; [...] 01/20/2025 Next Appt Details Follow Up: 2 Weeks,Leonidas craven on: Progress Notes * Renetta KIMB:1985 (39 yo F)Acc No.[id number]:01/20/2025 Progress Note Patient: Marie FORD Provider: Sisi Timmons ([facility]), SUBMARINE CABLE EQUIPMENT TECHNICIAN :1985 A ge:39 Y S ex:Female Date:01/20/2025 Address:[address] [place], [place] [address], [id number] Check In:12:58 PM ESTCheck O ut:01:25 PM EST Subjective: * Chief Complaints: * 1 . TCM [facility] D/C-01/11 Sepsis, Cellulitis LLE. 2. Currently on oral and IV atb at [facility]. Ivanz and zyvox. 3. Seen Dr. Florence [...] the nervous system and sense organs Modified On:08/14/2022 Status:confirmed E66.9 Obesity Modified On:08/14/2022 Status:confirmed F41.9 Anxiety Modified On:08/14/2022 Status:confirmed M19.90 Arthritis Modified On:08/14/2022 Status:confirmed F32.9 Depression Modified On:08/14/2022 Status:confirmed G47.00 Insomnia Modified On:08/14/2022 Status:confirmed G43.909 [...] N egative * Medications: T aking Excedrin Migraine(Zfzbvav-Jwlziaouipjux-Fhajcpmi) 250-250-65 MG Tablet 2 tablets Orally Once [...] MGMT SV * Preventive Medicine: Screenings/Counseling: B NE ACTION PLAN Above Normal BMI Follow-up D ietary management education, guidance, and counseling See treatment section of progress note for complete details of management plan. T OBACCO ACTION PLAN Patient counselled on the dangers of tobacco use and urged to quit. 1 . * Follow Up: 2 Weeks,prn * * Electronically signed by Huyen Timmons NP, LAW OFFICE MANAGER.SUBMARINE CABLE EQUIPMENT TECHNICIAN.[id number] on 01/21/2025 at 01:03 PM EDT Sign off status: Completed Visit Status: C HK (Check Out) true * Provider: Sisi Timmons ([facility]), SUBMARINE CABLE EQUIPMENT TECHNICIAN Date: Generated for Cary whitaker/Josué/eTransmitting on: 1 01:11 PM EDT History and Physical Notes * [...]
--- OUTSIDE RECORDS SUMMARY | 2025-01-20 10:27 | XMS_ITS ---
Author Organization The [facility] in [place] Address [address] [place] [address] Care Team Providers Care Import Coordinator Name Role Phone Cheyanne Timmnos Primary Care Provider REASON FOR VISIT yeast infection Medications Medication SIG (Take, Route, Fr equency, Duration) Notes Start Date End Date Status Fluconazole 150 MG 1 tablet Orally once ; Duration: 1 days 01/20/2025 Active Encounters Encounter Location Date Provider Diagnosis [facility] [address] [place] [address] 01/20/2025 Cheyanne Timmons Plan Of Treatment Medication Medication Name Sig Start Date Stop Date Notes Fluconazole 150 MG 1 tablet Orally once; Duration: 1 days 01/20/2025 Progress Notes * Renetta KIMB:1985 (39 yo F)Acc No.[id number]:01/20/2025 Patient: Noel FORDsha :1985 A ge:39 Y S ex:Female Address:[address] [place] [address] * Refills Start Fluconazole Tablet, 150 MG, Orally, 1, 1 tablet, once, 1 days, Refills=1 Subjective: * Chief Complaints: * Y east infection * Medical History: * Surgical History: * Hospitalization/Major Diagno stic Procedure: * Medications: Objective: * Vitals: * Physical Examination: Assessment: Plan: * Treatment: * Procedure Codes: * true * Date: Generated for Cary whitaker/Josué/Yamile on: 01:11 PM EDT
--- OUTSIDE RECORDS SUMMARY | 2025-01-28 05:51 | XMS_ITS ---
Author Organization The [facility] in [place] Address [address] [place] [address] Care Team Providers Care Assistant Surveyor Name Role Phone Cheyanne Timmons Primary Care Provider REASON FOR VISIT yeast infection Medications Medication SIG (Take, Route, Fr equency, Duration) Notes Start Date End Date Status Fluconazole 150 MG 1 tablet Orally once ; Duration: 1 days 01/20/2025 Active Encounters Encounter Location Date Provider Diagnosis [facility] [address] [place] [address] 01/28/2025 Cheyanne Timmons Plan Of Treatment Medication Medication Name Sig Start Date Stop Date Notes Fluconazole 150 MG 1 tablet Orally once; Duration: 1 days 01/20/2025 Progress Notes * Renetta KIMB:1985 (39 yo F)Acc No.[id number]:01/28/2025 Patient: Noel FORDsha :1985 A ge:39 Y S ex:Female Address:[address] [place] [address] * Refills Refill Fluconazole Tablet, 150 MG, Orally, 1, 1 tablet, once, 1 days, Refills=1 Subjective: * Chief Complaints: * Y east infection * Medical History: * Surgical History: * Hospitalization/Major Diagno stic Procedure: * Medications: Objective: * Vitals: * Physical Examination: Assessment: Plan: * Treatment: * Procedure Codes: * true * Date: Generated for Cary whitaker/Josué/Yamile on: 01:12 PM EDT
--- OUTSIDE RECORDS SUMMARY | 2025-01-31 09:30 | XMS_ITS ---
Author Organization [facility] [place] Address [address] [place] [address] Care Team Providers Care Desktop Publishing Specialist Name Role Phone Cheyanne Timmons Primary Care Provider Allergies Allergen (clinical drug ingredient) Drug/Non Drug Allergy documented on EMR Reaction Allergy Type Onset Date Status chlorhexidine Chlorhexidine Gluconate hives Drug Allergy Active REASON FOR VISIT Review Lab Results Medications Medication SIG (Take, Route, Frequency, Duration) Notes Start Date End Date Status FLUoxetine HCl 40 MG TAKE 1 CAPSULE BY M OUTH EVERY DAY FOR 90 DAYS; Duration: 30 ON HOLD Active Amitriptyline HCl 25 MG TAKE 1 TABLET BY MOUTH EVERY DAY AT BEDTIME FOR 30 DAYS; Duration: 30 ON HOLD Active Melatonin 5 MG 2 tablet in the even ing Orally at bedtime Active Gabapentin 300 MG 1 capsule Orally HS; Duration: 30 days 01/20/2025 Active Excedrin Migraine 250-250-65 MG 2 tablets Orally Once a day PRN Active Vitamin D3 50 MCG (1999 UT) 1 capsule Or ally Once a day; Duration: 30 day(s) 01/31/2025 Active Fluconazole 150 MG 1 tablet Orally once ; Duration: 1 days 01/20/2025 Active Social History Tobacco Use: Social History [...] Problem Status W/U Status Risk Notes Problem Vitamin D deficiency (44628826) Vitamin D deficiency (E55.9) Active confirmed Problem Anemia (786742280) Anemia (D64.9) Active confirmed Vital Signs Weight 462.0 lbs 01/31/2025 Height 65 in 01/31/2025 Blood pressure systolic 140 mm Hg 02/01/20 25 Blood pressure diastolic 88 mm Hg 025 Heart Rate 87 /min 01/31/2025 BMI 76.87 kg/m2 01/31/2025 Encounters Encounter Location Date Provider Diagnosis [facility] [address] [place] [address] 01/31/2025 Cheyanne Shanelle Anemia D64.9 ; Pre-diabetes R73.03 ; Vitamin D deficiency E55.9 and Migraine G43.909 Assessments Encounter Date Diagnosis (ICD Code) Assessment Notes Treatment Notes Treatment Clinical Notes Section Notes 01/31/2025 Anemia (ICD-10 - D64.9) MVI with iron 01/31/2025 Pre-diabetes (ICD-10 - R73.03) discussed pre-diabetes grandma with DM2 work on diet wt loss recheck 3-6 m 01/31/2025 Vitamin D deficiency (ICD-10 - E55.9) 01/31/2025 Migraine (ICD-10 - G43.909) sample [facility] given Plan Of Treatment Medication Medication Name Sig Start Date Stop Date Notes Vitamin D3 50 MCG (1999) 1 capsule Or ally Once a day; Duration: 30 day(s) 01/31/2025 Treatment Notes Assessment Notes Anemia MVI with iron Pre-diabetes discussed pre-diabetes grandma with DM2 work on diet wt loss recheck 3-6 m Migraine sample [facility] given Next Appt Details Follow Up: 3 Months,prn, [place] son: Progress Notes * Cedric KIM:1985 (39 yo F)Acc No.[id number]:01/31/2025 Progress Note Patient: Marie FORD Provider: Sisi Timmons ([facility]), COLLECTION TECHNICIAN :1985 A ge:39 Y S ex:Female Date:01/31/2025 Address:[address] [place] [address], [id number] Check In:01:24 PM ESTCheck O ut:01:52 PM EST Subjective: * Chief Complaints: * 1 . Review Lab Results. * HPI: G eneral: reviewed lab results and new dx left leg ok, some pain seeing ID and wound care still. * ROS: G eneral/Constitutional: Fever d enies. [...] P ainful urination d enies. M usculoskeletal: Patient complaining of l eft leg pain, hx cellulitis, seeing wound care, ID. B ack pain d enies. N nancy pain d enies. M uscle aches d enies. S kin: Rash d enies. S kin lesion(s) d enies. ? * Active Problem List G43.909 Migraine Modified On:08/14/2022W/U Status:confirmed J01.90 Acute sinusitis Modified On:08/14/2022 Status:confirmed F17.200 Current smoker Modified On:08/14/2022 Status:confirmed G25.81 Restless legs Modified On:08/14/2022 Status:confirmed I49.9 Irregular heart beat Modified On:08/14/2022 Status:confirmed Z68.44 BMI 60.0-69.9, adult Modified On:08/14/2022 Status:confirmed Z00.00 Wellness examination Modified On:08/14/2022 Status:confirmed K21.9 Gastro-esophageal re flux disease Modified On:08/14/2022 Status:confirmed Z86.69 Personal history of other diseases of the nervous system and sense organs Modified On:08/14/2022 Status:confirmed E66.9 Obesity Modified On:08/14/2022 Status:confirmed F41.9 Anxiety Modified On:08/14/2022 Status:confirmed M19.90 Arthritis Modified On:08/14/2022 Status:confirmed F32.9 Depression Modified On:08/14/2022 Status:confirmed G47.00 Insomnia Modified On:08/14/2022 Status:confirmed U07.1 COVID-19 virus infec tion Modified On:08/14/2022 Status:confirmed M54.50 Low back pain, unspe cified Modified On:08/14/2022 Status:confirmed I10 Elevated blood press ure Modified On:01/20/2025 Status:confirmed D64.9 Anemia Modified On:01/31/2025 Status:confirmed E55.9 Vitamin D deficiency Modified On:01/31/2025 Status:confirmed * Medical History: O besity, Irregular [...] nterpretation N egative * Medications: T aking Amitriptyline HCl 25 MG Tablet TAKE 1 TABLET BY MOUTH EVERY DAY AT BEDTIME FOR 30 DAYS , Notes to Pharmacist: ON HOLD, Taking Excedrin Migraine(Aswaxbz-Tblsdjanlfqll-Ylppukld) 250-250-65 MG Tablet 2 tablets Orally Once a day , Notes to Pharmacist: PRN, Taking Fluconazole 150 MG Tablet 1 tablet Orally once , Taking FLUoxetine HCl 40 MG Capsule TAKE 1 CAPSULE BY MOUTH EVERY DAY FOR 90 DAYS , Notes to Pharmacist: ON HOLD, Taking Gabapentin 300 MG Capsule 1 capsule Orally HS , Taking Melatonin 5 MG Tablet 2 tablet in the evening Orally at bedtime , Discontinued oxyCODONE HCl 5 MG Tablet 1 tablet as needed Orally every 6 hrs , Medication List reviewed and reconciled with the patient * Allergies: C hlorhexidine Gluconate: hives - Criticality High. Objective: * Vitals: W t:462.0lbs, Ht: 65 in, BP:140/88mm Hg, HR:87/min, BMI:76.87Index, Ht-cm: 165.1 cm, Wt-k.56 kg. * Examination: G eneral Examinations: GENERAL APPEARANCE: a lert and oriented, in no acute distress, morbidly obese. EYES: c onjunctiva normal, sclera non-icteric. NOSE: n ormal external appearance. LUNGS: c lear to auscultation bilaterally. CARDIO: r egular rate and rhythm, S1, S2 normal. MUSCULOSKELETAL: d ecreased ROM due to body habitus, left leg pain. SKIN: d ressing intact to left leg. Assessment: * Assessment: 1. P re-diabetes - R73.03 (Primary) 2 . A nemia - D64.9 3 .?Vitamin D deficiency - E55.9 4 . M igraine - G43.909 Plan: * Treatment: 2. A nemia Notes: MVI with iron 3. V itamin D deficiency Start Vitamin D3 Capsule, 50 MCG (1999 UT), 1 capsule, Orally, Once a day, 30 day(s), 30, Refills 11. 4. M igraine Notes: sample nurtec given * Preventive Medicine: Screenings/Counseling: B RI ACTION PLAN Above Normal BMI Follow-up D ietary management education, guidance, and counseling * Follow Up: 3 Months,prn * * Electronically signed by Huyen Timmons , ESTHER, FIFTH [email or web address] [id number] on 02/01/2025 at 02:51 PM EDT Sign off status: Completed Visit Status: C HK (Check Out) true * Provider: Sisi Timmons ([facility]), COLLECTION TECHNICIAN Date: Generated for Praveeni sherman/Josué/eTransmitting on: 01:11 PM EDT History and Physical Notes * HPI (History of Present Illness) Category Sub-Category Detail Notes Category Not es General reviewed lab results and new dx left leg ok, some pain seeing ID and wound care still Examination Category Sub-Category Detail Notes Category Not es General Examinations GENERAL APPEARANCE: alert a nd oriented, in no acute distress, morbidly obese EYES: conjunctiva normal, sclera non-icteric EARS: NOSE: normal external appe arance THROAT: CARDIO: regular rate and rhy thm, S1, S2 normal LUNGS: clear to auscultatio n bilaterally ABDOMEN: SKIN: dressing intact to l eft leg BACK: MUSCULOSKELETAL: decreased ROM due to body habitus, left leg pain LYMPH NODES:
--- OUTSIDE RECORDS SUMMARY | 2025-02-02 13:12 | XMS_ITS | Clinical Summary ---
Author Organization [facility] Address [address], [address] [place] [address] Care Team Providers Care Oven Heater Helper Name Role Phone Unavailable Primary Care Provider [...]
--- OUTSIDE RECORDS SUMMARY | 2025-02-02 13:13 | XMS_ITS | Patient Health Record ---
Author Organization [facility] in [place] Address [address] [place] [address] Care Team Providers Care Nurse Transition Name Role Phone Cheyanne Timmons Primary Care Provider Allergies Allergen (clinical drug ingredient) Drug/Non Drug Allergy documented on EMR Reaction Allergy Type Onset Date Status chlorhexidine Chlorhexidine Gluconate hives Drug Allergy Active Results Component Value Reference Range Notes CBC AUTO DIFF Reviewed date:01/06/2025 10:48:27 AM Interpretation: Performing Lab: Notes/Report: [facility] , White Blood Count 17.5 4.0-11.0 [...] 10 3/uL Performing Lab: see note - [facility] LB LACTATE or LACTIC ACID Reviewed date:01/06/2025 10:48:27 AM Interpretation: Performing Lab: Notes/Report: [facility] , Lactate/Lactic Acid 4.9 0.4-2.0 mmol/L RESULT S CALLED TO SAKSHI RIZZO RN Performing Lab: see note [facility] LB PROF 14(COMP METB) Reviewed date:01/06/2025 10:48:27 AM Interpretation: Performing Lab: Notes/Report: [facility] , Sodium 135 136-145 mmol/L Potassium [...] 0.6 Performing Lab: see note ML - [facility] LB Blood Culture 1 Reviewed date:01/11/2025 04:31:11 PM Interpretation: Performing Lab: Notes/Report: [facility] , Blood Culture 1 See Below For Report Blood Culture 1 NG5D NO GROWTH AT 5 DAYS.^NO GROWTH AT 5 DAYS. Performing Lab: see note ML - [facility] LB Blood Culture 2 Reviewed date:01/11/2025 04:31:11 PM Interpretation: Performing Lab: Notes/Report: [facility] , Blood Culture 2 See Below For Report Blood Culture 2 NG5D NO GROWTH AT 5 DAYS.^NO GROWTH AT 5 DAYS. Performing Lab: see note ML - [facility] LB HCG Qualitative* Reviewed date:01/06/2025 10:48:27 AM Interpretation: Performing Lab: Notes/Report: [facility] , HCG Qualitative NEGATIVE NEGATIVE Performing Lab: see note - [facility] LB XR tibia fibula LT 2V Reviewed date:01/06/2025 10:48:27 AM Interpretation: Performing Lab: Notes/Report: Source Facility: [place] [address] XRay Report Signed Patient: MARIE KIM MR#: [id number] : 1985 Acct:[id number] Age/Sex: 39 / F ADM Date: 01/05/25 Loc: ER Attending Dr: Ordering Physician: Shelley Avila Date of Service: 01/05/25 Procedure(s): XR tibia fibula LT 2V Accession Number(s): [id number] cc: CHEYANNE TIMMONS ; Shelley Avila [place] [address] Patient Name: MARIE KIM MRN: [id number] date: 1985 Sex: F Assigned Patient Location: ER Current Patient Location: ER Accession/Order Number: [id number] Exam Date: 01/05/2025 21:48 Report Date: 01/05/2025 [...] evidence of ostomy myelitis. Impression dictated by: rBan Mcgarry M.D. 01/05/2025 10:01 PM Dictation Location: [place] [address] Electronically authenticated by: [id number] Y Date: 01/05/2025 22:01 Dictated By: Bran Mcgarry M.D. Signed By: 01/05/252203 DD/ 00 TD/TT: Order Takers Supervisor: LACTATE or LACTIC ACID Reviewed date:01/06/2025 10:48:27 AM Interpretation: Performing Lab: Notes/Report: Y [facility] , Lactate/Lactic Acid 1.4 0.4-2.0 mmol/L Performing Lab: see note ML - [facility] LB PROF 14(COMP METB) Reviewed date:01/06/2025 10:48:27 AM Interpretation: Performing Lab: Notes/Report: [facility] , Sodium 134 136-145 mmol/L Potassium [...] Performing Lab: see note ML - [facility] LB CBC no Diff (Hemogram) Reviewed date:01/06/2025 10:48:27 AM Interpretation: Performing Lab: Notes/Report: [facility] , White Blood Count 15.1 4.0-11.0 [...] fL Performing Lab: see note ML - [facility] LB LACTATE or LACTIC ACID Reviewed date:01/06/2025 10:48:27 AM Interpretation: Performing Lab: Notes/Report: [facility] , Lactate/Lactic Acid 0.8 0.4-2.0 mmol/L Performing Lab: see note ML - [facility] LB CT lower leg LT wo con Reviewed date:01/07/2025 10:31:24 AM Interpretation: Performing Lab: Notes/Report: Source Facility: [facility]-[address] [place] [address] [place] [address] CT Scan Report Signed Patient: MARIE KIM MR#: [id number] : 1985 Acct:[id number] Age/Sex: 39 / F ADM Date: 01/05/25 Loc: [place] 219-[address]: Mali Austin M.D. Ordering Physician: Mali Austin M.D. Date of Service: 01/07/25 Procedure(s): CT lower leg LT wo con Accession Number(s): [id number] cc: CHEYNANE TIMMONS [place] [id number] Patient Name: MARIE KIM MRN: [id number] date: 1985 Sex: F Assigned Patient Location: [place] Current Patient Location: [place] Accession/Order Number: [id number] Exam Date: 01/07/2025 09:30 Report Date: 01/07/2025 [...] Richmond M.D. 01/07/2025 10:13 AM Dictation Location: [place] [address] Electronically authenticated by: [id number] Y Date: 01/07/2025 10:13 Dictated By: Jaquelin Richmond M.D. Signed By: 01/07/25 1016 DD/ 1013 TD/TT: Order Takers Supervisor: PROF GIORGIO Escobedo ([facility]) Reviewed date:01/10/2025 08:31:32 AM Interpretation: Performing Lab: Notes/Report: [facility] , Sodium 139 136-145 mmol/L Potassium [...] mg/dL Performing Lab: see note ML - [facility] LB VANCOMYCIN TROUGH Reviewed date:01/10/2025 08:31:32 AM Interpretation: Performing Lab: Notes/Report: [facility] , Vancomycin Trough 16.1 5.0-20.0 ug/mL Performing Lab: see note ML - [facility] LB Aerobic Culture Reviewed date:01/11/2025 09:30:28 AM Interpretation: Performing Lab: Notes/Report: [facility] , Aerobic Culture See Below For Report Aerobic Culture Aerobic Culture No growth after 18-24 hours. Aerobic Culture Aerobic Culture Aerobic Culture Aerobic Culture No growth in 36 - 48 hours. Aerobic Culture Aerobic Culture [facility]formed at: [facility] Aerobic Culture Aerobic Culture [address] [place], [place] [id number] Aerobic Culture Aerobic Culture Income Auditor: Rafat Johnson PhD, Phone: [phone] Aerobic Culture Performing Lab: see note - [facility] LB SEE REPORT - Full Decator Operator Id information not found for OBX-specific hardwood floor sander legend PROF GIORGIO Escobedo ([facility]) Reviewed date:01/10/2025 08:31:32 AM Interpretation: Performing Lab: Notes/Report: [facility] , Sodium 141 136-145 mmol/L Potassium [...] mg/dL Performing Lab: see note ML - [facility] LB PROF CHEM 8 (BAS METB) Reviewed date:01/10/2025 08:31:32 AM Interpretation: Performing Lab: Notes/Report: [facility] , Sodium 139 136-145 mmol/L Potassium [...] mg/dL Performing Lab: see note ML - [facility] LB CBC no Diff (Hemogram) Reviewed date:01/10/2025 08:31:32 AM Interpretation: Performing Lab: Notes/Report: [facility] , White Blood Count 11.1 4.0-11.0 [...] Performing Lab: see note ML - [facility] LB VANCOMYCIN TROUGH Reviewed date:01/11/2025 10:59:12 AM Interpretation: Performing Lab: Notes/Report: [facility] , Vancomycin Trough 8.8 5.0-20.0 ug/mL Performing Lab: see note ML - [facility] LB CRP Reviewed date:01/12/2025 08:42:48 AM Interpretation: Performing Lab: Notes/Report: [facility] , C Reactive Protein 12.13 <=0.50 mg/dL Performing Lab: see note ML - [facility] LB PROF CHEM 8 (BAS METB) Reviewed date:01/12/2025 08:42:48 AM Interpretation: Performing Lab: Notes/Report: [facility] , Sodium 135 136-145 mmol/L Potassium [...] Performing Lab: see note ML - [facility] LB CBC no Diff (Hemogram) Reviewed date:01/12/2025 08:42:48 AM Interpretation: Performing Lab: Notes/Report: [facility] , White Blood Count 9.5 4.0-11.0 [...] fL Performing Lab: see note ML - [facility] LB CBC AUTO DIFF Reviewed date:01/19/2025 08:33:20 AM Interpretation: Performing Lab: Notes/Report: [facility] , White Blood Count 6.8 4.0-11.0 [...] 3/uL Performing Lab: see note ML - [facility] LB CRP Reviewed date:01/19/2025 08:33:20 AM Interpretation: Performing Lab: Notes/Report: [facility] , C Reactive Protein 3.43 <=0.50 mg/dL Performing Lab: see note ML - [facility] LB PROF CHEM 8 (BAS METB) Reviewed date:01/19/2025 08:33:20 AM Interpretation: Performing Lab: Notes/Report: [facility] , Sodium 138 136-145 mmol/L Potassium [...] Performing Lab: see note ML - [facility] LB CBC AUTO DIFF Reviewed date:01/26/2025 10:50:47 AM Interpretation: Performing Lab: Notes/Report: [facility] , White Blood Count 6.6 4.0-11.0 10 [...] 10 3/uL Performing Lab: see note - [facility] FREE T3 Reviewed date:01/26/2025 10:50:47 AM Interpretation: Performing Lab: Notes/Report: [facility] , Free T3 2.29 2.18-3.98 pg/mL Performing Lab: see note - [facility] GLYCOHEMOGLOBIN A1C Reviewed date:01/26/2025 10:50:47 AM Interpretation: Performing Lab: Notes/Report: [facility] , Glycohemoglobin A1C 5.8 4.5-6.2 % ADA RECOMMENDED LIMIT 4.0 - 6.0 ADA THERAPEUTIC TARGET < 7.0 ACTION SUGGESTED > 7.0 Estimated Average Glucose 120 Performing Lab: see note - [facility] INSULIN Reviewed date:01/26/2025 10:50:47 AM Interpretation: Performing Lab: Notes/Report: [facility] , Insulin 20.9 2.6-24.9 uIU/mL Performed at: - [facility] [address] [id number] Income Auditor: Rafat Johnson PhD, Phone: [phone] Performing Lab: see note - [facility] LB IRON Reviewed date:01/26/2025 10:50:47 AM Interpretation: Performing Lab: Notes/Report: [facility] , Iron 53.0 50.0-170.0 ug/dL Performing Lab: see note ML - [facility] LB LIPID PROFILE Reviewed date:01/26/2025 10:50:47 AM Interpretation: Performing Lab: Notes/Report: [facility] , Triglycerides 310 <=150 mg/dL Cholesterol 166 [...] >11.0 HIGH RISK Performing Lab: see note - [facility] LB PROF 14(COMP METB) Reviewed date:01/26/2025 10:50:47 AM Interpretation: Performing Lab: Notes/Report: [facility] , Sodium 139 136-145 mmol/L Potassium 4.3 [...] 0.8 Performing Lab: see note ML - [facility] LB T4 Reviewed date:01/26/2025 10:50:47 AM Interpretation: Performing Lab: Notes/Report: [facility] , T4 Thyroxine 8.40 4.80-13.90 ug/dL Performing Lab: see note ML - [facility] LB TSH Reviewed date:01/26/2025 10:50:47 AM Interpretation: Performing Lab: Notes/Report: [facility] , Thyroid Stimulating Hormone 2.050 0.358-3.740 uIU/mL Performing Lab: see note - [facility] LB VITAMIN D 25 [place] Reviewed date:01/27/2025 03:36:03 PM Interpretation: Performing Lab: Notes/Report: [facility] , Vitamin D 23.3 <20 ng/mL Vit D deficient 20-<30 ng/mL Vit D insufficient 30-100 ng/mL Vit D sufficient >100 ng/mL Potential Toxicity Performing Lab: see note ML - [facility] LB Aerobic Culture Reviewed date:01/17/2025 09:13:45 AM Interpretation: Performing Lab: Notes/Report: [facility] , Aerobic Culture See Below For Report Aerobic Culture Aerobic Culture No growth after 18-24 hours. Aerobic Culture Aerobic Culture Aerobic Culture Aerobic Culture No growth in 36 - 48 hours. Aerobic Culture Aerobic Culture Performed at: [facility] Aerobic Culture Aerobic Culture [address] [place], [place] [id number] Aerobic Culture Aerobic Culture Income Auditor: Rafat Johnson PhD, Phone: [phone] Aerobic Culture Performing Lab: see note - [facility] LB SEE REPORT - Full Decator Operator Id information not found for OBX-specific hardwood floor sander legend Anaerobic Culture Reviewed date:01/17/2025 09:13:45 AM Interpretation: Performing Lab: Notes/Report: [facility] , Anaerobic Culture See Below For Report Anaerobic Culture Anaerobic Culture No aerobic or anaerobic growth in 72 hours. Anaerobic Culture Performing Lab: see note - [facility] LB Reason For Referral No Information Medications Medication SIG (Take, Route, Frequency, Duration) Notes Start Date End Date Status FLUoxetine HCl 40 MG TAKE 1 CAPSULE BY M OUTH EVERY DAY FOR 90 DAYS; Duration: 30 ON HOLD Active Amitriptyline HCl 25 MG TAKE 1 TABLET BY MOUTH EVERY DAY AT BEDTIME FOR 30 DAYS; Duration: 30 ON HOLD Active Excedrin Migraine 250-250-65 MG 2 tablets Orally Once a day PRN Active Vitamin D3 50 MCG (2000 UT) 1 capsule Or ally Once a day; Duration: 30 day(s) 01/31/2025 Active Melatonin 5 MG 2 tablet in the even ing Orally at bedtime Active Gabapentin 300 MG 1 capsule Orally HS; Duration: 30 days 01/20/2025 Active Fluconazole 150 MG 1 tablet Orally [...] Problem Nervous system and sense organ diseases (006208404) Personal history of other diseases of the nervous system and sense organs (Z86.69) Active confirmed Problem Obesity (852819663) Obesity (E66.9) Active confirmed Problem Anxiety (80090063) Anxiety (F41.9) Active confirmed Problem Arthritis (2598354) Arthritis (M19.90) Active confirmed Problem Anemia (476759090) Anemia (D64.9) Active confirmed Problem Depression (531408988) Depression (F32.9) Active confirmed Problem Insomnia (998313792) Insomnia (G47.00) Active confirmed Problem Vitamin D deficiency (84983018) Vitamin D deficiency (E55.9) Active confirmed Problem Migraine (71844277) Migraine (G43.909) Active confirmed Problem Acute sinusitis (81398474) Acute sinusitis (J01.90) Active confirmed Problem Current smoker (65256269) Current smoker (F17.200) Active confirmed Problem Restless legs (41094066) Restless legs (G25.81) Active confirmed Problem Irregular heart beat (486714624) Irregular heart beat (I49.9) Active confirmed Problem Body mass index 40+ - morbidly obese (144345798) BMI 60.0-69.9, adult (Z68.44) Active confirmed Problem Annual wellness visit (188086692447491 ) Wellness examination (Z00.00) Active confirmed Problem Gastro-esophagea l reflux disease (607709075) Gastro-esophage al reflux disease (K21.9) Active confirmed Problem Elevated blood pressure (72734877) Elevated blood pressure (I10) Active confirmed Problem Disease caused by Severe acute respiratory syndrome coronavirus 2 (disorder) (000701967) COVID-19 virus infection (U07.1) Active confirmed Problem Low back pain (867863654) Low back pain, unspecified (M54.50) Active confirmed Vital Signs Heart Rate 87 /min 01/31/2025 Blood pressure diastolic 88 mm Hg 01/31/2025 Height 65 in 01/31/2025 Blood pressure systolic 140 mm Hg 01/31/2025 Weight 462.0 lbs 01/31/2025 BMI 76.87 kg/m2 01/31/2025 Encounters Encounter Location Date Provider Diagnosis [facility] [address] [place] [address] 02/24/2024 Cheyanne Timmons Wellness examination Z00.[address] [address] 02/26/2024 Cheyanne Timmons [facility] [address] [place] [address] 01/11/2025 Cheyanne Timmons [facility] [address] [place] [address] 01/20/2025 Cheyanne Timmons [facility] [address] [facility] [address] 01/28/2025 Cheyanne Timmons [facility] [address] [place] [address] 02/24/2024 Cheyanne Timmons Migraine G43.[address] [address] 01/20/2025 Cheyanne Timmons Neuropathic pain M79.2 ; Elevated blood pressure I10 ; Cellulitis L03.90 and Wellness examination Z00.00 [facility] [address] [place] [address] 01/31/2025 Cheyanne Timmons Anemia D64.9 ; Pre-diabetes R73.03 ; Vitamin [...] (ICD-10 - I10) BP check 2 weeks 01/31/2025 Anemia (ICD-10 - D64.9) MVI with iron 01/31/2025 Pre-diabetes (ICD-10 - R73.03) discussed pre-diabetes grandma with DM2 work on diet wt loss recheck 3-6 m 02/24/2024 Wellness examination (ICD-10 - Z00.00) 01/31/2025 Vitamin D deficiency (ICD-10 - E55.9) 01/20/2025 Cellulitis (ICD-10 - L03.90) continue fu ID and wound care improving slowly 01/20/2025 Wellness examination (ICD-10 - Z00.00) 01/31/2025 Migraine (ICD-10 - G43.909) [facility] Of Treatment Pending Test Test Name [...] ACCESS PPO PLUS LOCAL PLAN [address] [place] [address] [phone] [id number] Tejinder Kim Spouse - patient is the [...] History Surgery Date(Month/Year) tonsillectomy gallbladder removal x2 Hospitalization History Reason Date(Month/Year) [facility]- cellulitis and Sepsis
== END 2025-02-02 13:10 | disposition home or self-care (01) ==
LOC: WC 13:09
PROVIDERS: PCP Nurse Practitioner Family; Visit Provider Physician Assistant
DX: L97.822 Non-pressure chronic ulcer of other part of left lower leg with fat layer exposed (principal)
CPT/HCPCS: G0463

== ENCOUNTER 2025-02-16 11:26 | Outpatient (OUT) | payer BC, SELFPAY ==
--- OUTSIDE RECORDS SUMMARY | 2025-02-16 11:32 | XMS_ITS | Clinical Summary ---
Author Organization [facility] Address [address], [address] [place] [address] Care Team Providers Care [employer] Yard Supervisor Name Role Phone Unavailable Primary Care Provider Unavailabl e Allergies No known active allergies Medications MedicationSigDispense QuantityRefillsLast FilledStart DateEnd DateStatus Vit-Fe Fumarate-FA ( MULTIVITAMIN) 27-1 MG TABS tablet Take 1 tablet by mouth daily.Active docusate sodium 100 MG CAPS Take 100 mg by mouth 2 times daily as needed for Constipation. 30 capsule ctive ibuprofen (ADVIL;MOTRIN) 600 MG tablet Take 1 tablet by mouth every 6 hours as needed for Pain (For mild pain level 1-3). 120 tablet ctive ferrous sulfate 325 (65 FE) MG tablet Indications:Routine follow-upTake 325 mg by mouth daily (with breakfast).Active Active Problems ProblemNoted DateDiagnosed DateRoutine follow-up05/20/2012 Immunizations ImmunizationAdministration DatesNext DueInfluenza Virus Kntpzzo2604/11/2012TDaP, ADACEL (age 10y-64y), BOOSTRIX (age 10y+), IM, 0.5mL04/12/2012 Family History Medical HistoryRelationNameCommentsHeart DiseaseFatherCancerMaternal Grandfather CancerMaternal GrandmotherDiabetesMaternal GrandmotherRelationNameStatusComments FatherMaternal GrandfatherMaternal Grandmother Social History Tobacco UseTypesPacks/DayYears UsedDateSmoking Tobacco: FormerCigarettes0.36 Smokeless Tobacco: Never Tobacco Cessation:Ready to Q uit: No; Counseling Given: No Alcohol UseStandard Drinks/WeekCommentsNo0 (1 standard drink = 0.6 oz pure alcohol)CommentsNoSex and Gender InformationValueDate RecordedSex Assigned at BirthNot on fileLegal EchRrbbki53/10/2013 12:26 PM ESTGender IdentityNot on fileSexual OrientationNot on file Last Filed Vital Signs Vital SignReadingTime TakenCommentsBlood Ktfjajer741/80005/20/2012 3:40 PM EST Sewzu949704/12/2012 12:30 PM YUNXnnielhyjkk42.7 ??C (98 ??F)04/12/2012 12:30 PM ESTRespiratory Hlae931406/13/2011 12:30 PM ESTOxygen Gbigrrqwuu13%04/09/2012 12:37 PM ESTInhaled Oxygen Concentration--Vazjzj136.2 kg (265 lb)05/20/2012 3:40 PM MVGEasdkt683.1 cm (5' 5 )05/20/2012 3:40 PM ESTBody Mass Index44. 3:40 PM EST Plan of Treatment Not on file Advance Directives * Full Code (Latest Code Status on File) Date ActivatedDate WssxpbksnsvSjaupmxo96/20/2012 12:29 PM04/12/2012 6:06 PM * Full Code Date ActivatedDate LxlmroedvzgIzzkqjxz67/20/2012 6:47 AM04/09/2012 12:29 PM
--- OUTSIDE RECORDS SUMMARY | 2025-02-16 11:32 | XMS_ITS | Patient Health Record ---
Author Organization [facility] in [place] Address [address] [place] [address] Care Team Providers Care Cleaning Porter Name Role Phone Cheyanne Timmons Primary Care Provider Allergies Allergen (clinical drug ingredient) Drug/Non Drug Allergy documented on EMR Reaction Allergy Type Onset Date Status chlorhexidine Chlorhexidine Gluconate hives Drug Kvng rgy Active Results Component Value Reference Range Notes CBC AUTO DIFF Reviewed date:01/06/2025 10:48:27 AM Interpretation: Performing Lab: Notes/Report: [facility] , White Blood Count 17.5 4.0-11.0 10 3/uL Red Blood Count4.874.20-5.40 10 6/fBQjbogpnpdv07.612.0-16.0 g/oCJiuawzmptu14.6 36.0-48.0 %Mean Corpuscular Fwxccv25.381.0-99.0 fLMean Corpuscular Hemoglobin 25.926.7-34.0 pgMean Corpuscular HGB Conc32.629.9-35.2 g/dLRed Cell Distribution Width15.811.0-15.0 %Platelet Jbpvb286184-326 10 3/uLMean Platelet Volume9.79.5- 13.5 fLNeutrophils Percent Auto91.143.0-75.0 %Lymphocytes Percent Auto5.820.5- 60.0 %Monocytes Percent Auto2.51.7-12.0 %Eosinophils Percent Auto0.00.9-7.0 % Basophils Percent Auto0.20.2-2.0 %Immature Granulocytes Pct Auto0.40.0-0.5 % Neutrophils Absolute Auto16.01.4-6.5 10 3/uLLymphocytes Absolute Auto1.01.2-3.8 10 3/uLMonocytes Absolute Auto0.40.3-0.8 10 3/uLEosinophils Absolute Auto0.00.0- 0.7 10 3/uLBasophils Absolute Auto0.00.0-0.1 10 3/uLImmature Granulocytes Abs Auto0.070.00-0.03 10 3/uLPerforming Lab:see noteML - [facility] LB PROF 14(COMP METB) Reviewed date:01/06/2025 10:48:27 AM Interpretation: Performing Lab: Notes/Report: [facility] ,Larrzj572121-785 mmol/LPotassium3.43.5-5.1 mmol/RBpbluubi9681-416 mmol/LCarbon Fsnrzoq14.621.0-32.0 mmol/LAnion Gap16.5Wrbskex95651-204 mg/dLBlood Urea Hulvmyoi03.07.0-18.0 mg/dLCreatinine1.180.55-1.02 mg/dLEstimated GFR ( Fidelia>60>=60 mL/min/1.73m 2Estimated GFR (Non- Ame51>=60 mL/min/1.73m 2 BUN Creatinine Ratio10.1Ijqpdin1.88.5-10.1 mg/dLBilirubin Total0.70.2-1.0 mg/dL Aspartate Amino Sktgfgtxpcd3571-63 U/LAlanine Lrypfqmfswvphrsr7753-98 U/L Alkaline Oaqdukjowhj9283-239 U/LTotal Protein8.26.4-8.2 g/dLAlbumin Level3.23.4- 5.0 g/dLGlobulin5.0Albumin Globulin Ratio0.6Performing Lab:see noteML - [facility] LBBlood Culture 1 Reviewed date:01/11/2025 04:31:11 PM Interpretation: Performing Lab: Notes/Report: [facility] ,Blood Culture 1See Below For Report Blood Culture 1 NG5D NO GROWTH AT 5 DAYS.^NO GROWTH AT 5 DAYS. Performing Lab:see note - [facility] LBBlood Culture 2 Reviewed date:01/11/2025 04:31:11 PM Interpretation: Performing Lab: Notes/Report: [facility] ,Blood Culture 2See Below For Report Blood Culture 2 NG5D NO GROWTH AT 5 DAYS.^NO GROWTH AT 5 DAYS. Performing Lab:see note - [facility] LBHCG Qualitative* Reviewed date:01/06/2025 10:48:27 AM Interpretation: Performing Lab: Notes/Report: [facility] ,HCG QualitativeNEGATIVENEGATIVEPerforming Lab:see note - [facility] LBXR tibia fibula LT 2V Reviewed date:01/06/2025 10:48:27 AM Interpretation: Performing Lab: Notes/Report: Source Facility: [place] [address] [place] [address] XRay Report Signed Patient: MARIE KIM MR#: [id number] : 1985 Acct:[id number] Age/Sex: 39 / F ADM Date: 01/05/25 Loc: ER Attending Dr: Ordering Physician: Shelley Avila Date of Service: 01/05/25 Procedure(s): XR tibia fibula LT 2V Accession Number(s): [id number] cc: CHEYANNE TIMMONS ; Shelley Avila [place] [address] Patient Name: MARIE KIM MRN: [id number] date: 1985 Sex: F Assigned Patient Location: ER Current Patient Location: ER Accession/Order Number: [id number] Exam Date: 01/05/2025 21:48 Report Date: 01/05/2025 [...] Mcgarry M.D. 01/05/2025 10:01 PM Dictation Location: [place] [address] Electronically authenticated by: [id number] Y Date: 01/05/2025 22:01 Dictated By: Bran Mcgarry M.D. Signed By: 01/05/252203 DD/ 00 TD/TT: Fingernail Former:LACTATE or LACTIC ACID Reviewed date:01/06/2025 10:48:27 AM Interpretation: Performing Lab: Notes/Report: [facility] ,Lactate/Lactic Acid1.40.4-2.0 mmol/LPerforming Lab:see noteML - [facility] LBPROF 14(COMP METB) Reviewed date:01/06/2025 10:48:27 AM Interpretation: Performing Lab: Notes/Report: [facility] ,Dgjknr364803-176 mmol/LPotassium3.53.5-5.1 mmol/ZPdcrbeck9900-854 mmol/LCarbon Vyfmbzj52.021.0-32.0 mmol/LAnion Gap12.7Lswytak77675-434 mg/dLBlood Urea Cnxarpsh75.07.0-18.0 mg/dLCreatinine0.930.55-1.02 mg/dLEstimated GFR ( Fidelia>60>=60 mL/min/1.73m 2Estimated GFR (Non- Brisa>60>=60 mL/min/1.73m 2BUN Creatinine Ratio11.0Fqwytck5.28.5-10.1 mg/dLBilirubin Total0.50.2-1.0 mg/dL Aspartate Amino Ffakbyzjvzb8133-47 U/LAlanine Bkqeqrrauvkcddud3423-64 U/L Alkaline Pgdntiransl9598-671 U/LTotal Protein7.66.4-8.2 g/dLAlbumin Level2.83.4- 5.0 g/dLGlobulin4.8Albumin Globulin Ratio0.6Performing Lab:see noteML - [facility] LBCBC no Diff (Hemogram) Reviewed date:01/06/2025 10:48:27 AM Interpretation: Performing Lab: Notes/Report: [facility] ,White Blood Count15.14.0-11.0 10 3/uLRed Blood Count4.594.20-5.40 10 6/uL Iaglzeocsk81.812.0-16.0 g/sLIppuhvdwkl42.536.0-48.0 %Mean Corpuscular Jdfdzn70.5 81.0-99.0 fLMean Corpuscular Syczwgrems06.726.7-34.0 pgMean Corpuscular HGB Conc 32.329.9-35.2 g/dLRed Cell Distribution Width15.911.0-15.0 %Platelet Dvpxs693 150-450 10 3/uLMean Platelet Atwcwa31.29.5-13.5 fLPerforming Lab:see noteML - [facility] LBLACTATE or LACTIC ACID Reviewed date:01/06/2025 10:48:27 AM Interpretation: Performing Lab: Notes/Report: [facility] ,Lactate/Lactic Acid0.80.4-2.0 mmol/LPerforming Lab:see note - [facility] LBPROF CHEM 8 (BAS METB) Reviewed date:01/10/2025 08:31:32 AM Interpretation: Performing Lab: Notes/Report: [facility] ,Ojdptt621757-178 mmol/LPotassium3.23.5-5.1 mmol/HQtbktwek89895-727 mmol/LCarbon Fglumgg59.321.0-32.0 mmol/LAnion Gap13.7Ulrqexb2293-214 mg/dLBlood Urea Nitrogen 10.07.0-18.0 mg/dLCreatinine0.950.55-1.02 mg/dLEstimated GFR ( Fidelia>60 >=60 mL/min/1.73m 2Estimated GFR (Non- Brisa>60>=60 mL/min/1.73m 2BUN Creatinine Ratio10.9Rzvfdvq7.28.5-10.1 mg/dLPerforming Lab:see noteML - [facility] LBAerobic Culture Reviewed date:01/11/2025 09:30:28 AM Interpretation: Performing Lab: Notes/Report: [facility] ,Aerobic CultureSee Below For Report Aerobic Culture Aerobic CultureNo growth after 18-24 hours. Aerobic Culture Aerobic Culture Aerobic Culture Aerobic CultureNo growth in 36 - 48 hours. Aerobic Culture Aerobic CulturePerformed at: [facility] Aerobic Culture Aerobic [address] [place], [place] [id number] Aerobic Culture Aerobic CultureLab Director: Rafat Johnson PhD, Phone: [phone] Aerobic Culture Performing Lab:see note - [facility] LB SEE REPORT - Drafter Id information not found for OBX-specific writer producer legend Anaerobic Culture Reviewed date:01/17/2025 09:13:45 AM Interpretation: Performing Lab: Notes/Report: [facility] ,Anaerobic CultureSee Below For Report Anaerobic Culture Anaerobic CultureNo aerobic or anaerobic growth in 72 hours. Anaerobic Culture [facility]BA[facility] Reviewed date:01/17/2025 09:13:45 AM Interpretation: Performing Lab: Notes/Report: [facility] ,Aerobic CultureSee Below For Report Aerobic Culture Aerobic CultureNo growth after 18-24 hours. Aerobic Culture Aerobic Culture Aerobic Culture Aerobic CultureNo growth in 36 - 48 hours. Aerobic Culture Aerobic CulturePerformed at: [facility] Aerobic Culture Aerobic [address] [place], [place] [id number] Aerobic Culture Aerobic CultureLab Director: Rafat Johnson PhD, Phone: [phone] Aerobic Culture Performing Lab:see note - [facility] LB SEE REPORT - Drafter Id information not found for OBX-specific writer producer legend PROF CHEM 8 (BAS METB) Reviewed date:01/10/2025 08:31:32 AM Interpretation: Performing Lab: Notes/Report: [facility] ,Qjpjxp594088-062 mmol/LPotassium3.33.5-5.1 mmol/IZrrkbeex72127-806 mmol/LCarbon Canelbv54.321.0-32.0 mmol/LAnion Gap15.2Jprabme8610-307 mg/dLBlood Urea Nitrogen 8.07.0-18.0 mg/dLCreatinine1.060.55-1.02 mg/dLEstimated GFR ( Fidelia>60 >=60 mL/min/1.73m 2Estimated GFR (Non- Ame58>=60 mL/min/1.73m 2BUN Creatinine Ratio7.1Juqzfxk2.58.5-10.1 mg/dLPerforming Lab:see noteML - [facility] LBPROF CHEM 8 (BAS METB) Reviewed date:01/10/2025 08:31:32 AM Interpretation: Performing Lab: Notes/Report: [facility] ,Qijflv113849-026 mmol/LPotassium3.63.5-5.1 mmol/DCstgetan94122-069 mmol/LCarbon Epghtfx57.821.0-32.0 mmol/LAnion Gap13.7Mdekdqu90728-034 mg/dLBlood Urea Nitrogen6.07.0-18.0 mg/dLCreatinine1.010.55-1.02 mg/dLEstimated GFR ( Fidelia>60>=60 mL/min/1.73m 2Estimated GFR (Non- Brisa>60>=60 mL/min/1.73m 2BUN Creatinine Ratio5.6Okxrghl4.28.5-10.1 mg/dLPerforming Lab:see noteML - [facility] LBCBC no Diff (Hemogram) Reviewed date:01/10/2025 08:31:32 AM Interpretation: Performing Lab: Notes/Report: [facility] ,White Blood Count11.14.0-11.0 10 3/uLRed Blood Count4.084.20-5.40 10 6/uL Pvbdcshtnj30.412.0-16.0 g/mAZruvcdkmtl17.236.0-48.0 %Mean Corpuscular Asmhwt62.4 81.0-99.0 fLMean Corpuscular Qqiubxirub23.526.7-34.0 pgMean Corpuscular HGB Conc 31.329.9-35.2 g/dLRed Cell Distribution Width15.811.0-15.0 %Platelet Uquoj240 150-450 10 3/uLMean Platelet Volume9.59.5-13.5 fLPerforming Lab:see noteML - [facility] LBVANCOMYCIN TROUGH Reviewed date:01/11/2025 10:59:12 AM Interpretation: Performing Lab: Notes/Report: [facility] ,Vancomycin Trough8.85.0-20.0 ug/mLPerforming Lab:see noteML - [facility] LBCBC no Diff (Hemogram) Reviewed date:01/12/2025 08:42:48 AM Interpretation: Performing Lab: Notes/Report: [facility] ,White Blood Count9.54.0-11.0 10 3/uLRed Blood Count4.214.20-5.40 10 6/uL Ddlsiwhayd60.712.0-16.0 g/eYLaqoqbefks97.436.0-48.0 %Mean Corpuscular Hpddhy12.7 81.0-99.0 fLMean Corpuscular Ycmbctmznz62.426.7-34.0 pgMean Corpuscular HGB Conc 31.129.9-35.2 g/dLRed Cell Distribution Width15.611.0-15.0 %Platelet Jfnns299 150-450 10 3/uLMean Platelet Volume9.29.5-13.5 fLPerforming Lab:see noteML - [facility] LBCBC AUTO DIFF Reviewed date:01/19/2025 08:33:20 AM Interpretation: Performing Lab: Notes/Report: [facility] ,White Blood Count6.84.0-11.0 10 3/uLRed Blood Count4.404.20-5.40 10 6/uL Ohrquiavao01.312.0-16.0 g/zRJqaesaivrn82.836.0-48.0 %Mean Corpuscular Fltuhs09.4 81.0-99.0 fLMean Corpuscular Gqplnrwvws63.726.7-34.0 pgMean Corpuscular HGB Conc 31.629.9-35.2 g/dLRed Cell Distribution Width15.211.0-15.0 %Platelet Xsjuz116 150-450 10 3/uLMean Platelet Volume9.69.5-13.5 fLNeutrophils Percent Auto65.7 43.0-75.0 %Lymphocytes Percent Auto23.720.5-60.0 %Monocytes Percent Auto6.11.7- 12.0 %Eosinophils Percent Auto3.30.9-7.0 %Basophils Percent Auto0.60.2-2.0 % Immature Granulocytes Pct Auto0.60.0-0.5 %Neutrophils Absolute Auto4.51.4-6.5 10 3/uLLymphocytes Absolute Auto1.61.2-3.8 10 3/uLMonocytes Absolute Auto0.40.3-0.8 10 3/uLEosinophils Absolute Auto0.20.0-0.7 10 3/uLBasophils Absolute Auto0.00.0- 0.1 10 3/uLImmature Granulocytes Abs Auto0.040.00-0.03 10 3/uLPerforming Lab:see noteML - [facility] LBCRP Reviewed date:01/19/2025 08:33:20 AM Interpretation: Performing Lab: Notes/Report: [facility] ,C Reactive Protein3.43<=0.50 mg/dLPerforming Lab:see noteML - [facility] LBPROF CHEM 8 (BAS METB) Reviewed date:01/19/2025 08:33:20 AM Interpretation: Performing Lab: Notes/Report: [facility] ,Hbmfie346200-611 mmol/LPotassium4.03.5-5.1 mmol/IVrhwthng06864-732 mmol/LCarbon Egjmprt60.021.0-32.0 mmol/LAnion Gap15.8Tlyegnv06567-072 mg/dLBlood Urea Gjzhpxwx96.07.0-18.0 mg/dLCreatinine1.130.55-1.02 mg/dLEstimated GFR ( Fidelia>60>=60 mL/min/1.73m 2Estimated GFR (Non- Ame54>=60 mL/min/1.73m 2 BUN Creatinine Ratio11.4Jlhbsaq0.98.5-10.1 mg/dLPerforming Lab:see noteML - [facility] LBCBC AUTO DIFF Reviewed date:01/26/2025 10:50:47 AM Interpretation: Performing Lab: Notes/Report: [facility] ,White Blood Count6.64.0-11.0 10 3/uLRed Blood Count4.554.20-5.40 10 6/uL Gjmgusspnn94.512.0-16.0 g/gQGykvqrdvch26.036.0-48.0 %Mean Corpuscular Injexr04.3 81.0-99.0 fLMean Corpuscular Dsbaxdmcxh60.326.7-34.0 pgMean Corpuscular HGB Conc 31.129.9-35.2 g/dLRed Cell Distribution Width15.211.0-15.0 %Platelet Epyst666 150-450 10 3/uLMean Platelet Volume9.69.5-13.5 fLNeutrophils Percent Auto59.3 43.0-75.0 %Lymphocytes Percent Auto29.320.5-60.0 %Monocytes Percent Auto6.21.7- 12.0 %Eosinophils Percent Auto3.50.9-7.0 %Basophils Percent Auto1.40.2-2.0 % Immature Granulocytes Pct Auto0.30.0-0.5 %Neutrophils Absolute Auto3.91.4-6.5 10 3/uLLymphocytes Absolute Auto1.91.2-3.8 10 3/uLMonocytes Absolute Auto0.40.3-0.8 10 3/uLEosinophils Absolute Auto0.20.0-0.7 10 3/uLBasophils Absolute Auto0.10.0- 0.1 10 3/uLImmature Granulocytes Abs Auto0.020.00-0.03 10 3/uLPerforming Lab:see noteML - [facility] LBFREE T3 Reviewed date:01/26/2025 10:50:47 AM Interpretation: Performing Lab: Notes/Report: [facility] ,Free T32.292.18-3.98 pg/mLPerforming Lab:see noteML - [facility] LB GLYCOHEMOGLOBIN A1C Reviewed date:01/26/2025 10:50:47 AM Interpretation: Performing Lab: Notes/Report: [facility] ,Glycohemoglobin A1C5.84.5-6.2 % ADA RECOMMENDED LIMIT 4.0 - 6.0 ADA THERAPEUTIC TARGET < 7.0 ACTION SUGGESTED > 7.0 Estimated Average Ivsykgz786Uchewnyjsm Lab:see noteML - [facility] LB INSULIN Reviewed date:01/26/2025 10:50:47 AM Interpretation: Performing Lab: Notes/Report: [facility] ,Seoyjkp64.92.6-24.9 uIU/mL Performed at: - [address] [id number] Director Of Distance Learning: Rafat Johnson PhD, Phone: [phone] Performing Lab:see noteLC - [facility] LBIRON Reviewed date:01/26/2025 10:50:47 AM Interpretation: Performing Lab: Notes/Report: [facility] ,Iron53.050.0-170.0 ug/dLPerforming Lab:see noteML - [facility] LB LIPID PROFILE Reviewed date:01/26/2025 10:50:47 AM Interpretation: Performing Lab: Notes/Report: [facility] ,Bppwpxqqcbbap797<=150 mg/pNAojuzjqfply206<=200 mg/dLHDL Xlcgsvvcyup1062-01 mg/dL > or =60 mg/dl - LOW CARDIOVASCULAR RISK <40 mg/dl - HIGH CARDIOVASCULAR RISK LDL Cholesterol Ocbtolmska16.0 <100 mg/dl OPTIMAL 100-129 mg/dl NEAR OR ABOVE OPTIMAL 130-159 mg/dl BORDERLINE HIGH 160-189 mg/dl HIGH >190 mg/dl VERY HIGH VLDL XLOYVSYXESX09.0Chol HDL Ratio4.5 3.3 - 4.4 LOW RISK 4.4 - 7.1 AVERAGE RISK 7.1 - 11.0 MODERATE RISK >11.0 HIGH RISK Performing Lab:see noteML - [facility] LBPROF 14(COMP METB) Reviewed date:01/26/2025 10:50:47 AM Interpretation: Performing Lab: Notes/Report: [facility] ,Reohns330418-740 mmol/LPotassium4.33.5-5.1 mmol/RWrijgakx32800-044 mmol/LCarbon Ufhffds83.921.0-32.0 mmol/LAnion Gap13.0Iwyxlkm8736-150 mg/dLBlood Urea Nitrogen 13.07.0-18.0 mg/dLCreatinine1.130.55-1.02 mg/dLEstimated GFR ( Fidelia>60 >=60 mL/min/1.73m 2Estimated GFR (Non- Ame54>=60 mL/min/1.73m 2BUN Creatinine Ratio11.4Jvpyrnp0.68.5-10.1 mg/dLBilirubin Total0.40.2-1.0 mg/dL Aspartate Amino Eypfgrlhqud7488-35 U/LAlanine Soiradguvmgvvmno1022-02 U/L Alkaline Ggaowxmyije36918-090 U/LTotal Protein7.66.4-8.2 g/dLAlbumin Level3.3 3.4-5.0 g/dLGlobulin4.3Albumin Globulin Ratio0.8Performing Lab:see note - [facility] LBT4 Reviewed date:01/26/2025 10:50:47 AM Interpretation: Performing Lab: Notes/Report: [facility] ,T4 Thyroxine8.404.80-13.90 ug/dLPerforming Lab:[facility] LBTSH Reviewed date:01/26/2025 10:50:47 AM Interpretation: Performing Lab: Notes/Report: [facility] ,Thyroid Stimulating Hormone2.0500.358-3.740 uIU/mLPerforming Lab:[facility] LBVITAMIN D 25 [place] Reviewed date:01/27/2025 03:36:03 PM Interpretation: Performing Lab: Notes/Report: [facility] ,Vitamin D23.3 <20 ng/mL Vit D deficient 20-<30 ng/mL Vit D insufficient 30-100 ng/mL Vit D sufficient >100 ng/mL Potential Toxicity Performing Lab:see [facility] - [facility] LBPROF CHEM 8 (BAS METB) Reviewed date:01/12/2025 08:42:48 AM Interpretation: Performing Lab: Notes/Report: [facility] ,Xjexlc886544-535 mmol/LPotassium3.83.5-5.1 mmol/MOsphmkuq5333-383 mmol/LCarbon Ebozjau65.721.0-32.0 mmol/LAnion Gap10.3Vrhwaxv7397-848 mg/dLBlood Urea Nitrogen 7.07.0-18.0 mg/dLCreatinine1.070.55-1.02 mg/dLEstimated GFR ( Fidelia>60 >=60 mL/min/1.73m 2Estimated GFR (Non- Ame57>=60 mL/min/1.73m 2BUN Creatinine Ratio6.4Lbvtkfi1.58.5-10.1 mg/dLPerforming Lab:see noteML - [facility] LBCRP Reviewed date:01/12/2025 08:42:48 AM Interpretation: Performing Lab: Notes/Report: [facility] ,C Reactive Bvnokvy36.13<=0.50 mg/dLPerforming Lab:see noteML - [facility] LBVANCOMYCIN TROUGH Reviewed date:01/10/2025 08:31:32 AM Interpretation: Performing Lab: Notes/Report: [facility] ,Vancomycin Hhlmep06.15.0-20.0 ug/mLPerforming Lab:see noteML - [facility] LBCT lower leg LT wo con Reviewed date:01/07/2025 10:31:24 AM Interpretation: Performing Lab: Notes/Report: Source Facility: [place] [address] [place] [address] CT Scan Report Signed Patient: MARIE KIM MR#: [id number] : 1985 Acct:[id number] Age/Sex: 39 / F ADM Date: 01/05/25 Loc: [place] 219-[address]: Mali Austin M.D. Ordering Physician: Mali Austin M.D. Date of Service: 01/07/25 Procedure(s): CT lower leg LT wo con Accession Number(s): [id number] cc: CHEYANNE TIMMONS [place] [address] Patient Name: MARIE KIM MRN: [id number] date: 1985 Sex: F Assigned Patient Location: [place] Current Patient Location: [place] Accession/Order Number: [id number] Exam Date: 01/07/2025 09:30 Report Date: 01/07/2025 [...] 01/07/2025 10:13 AM Dictation Location: [place] [address] Electronically authenticated by: [id number] Y Date: 01/07/2025 10:13 Dictated By: Jaquelin Richmond M.D. Signed By: 01/07/25 1016 DD/ 1013 TD/TT: Fingernail Former:LACTATE or LACTIC ACID Reviewed date:01/06/2025 10:48:27 AM Interpretation: Performing Lab: Notes/Report: [facility] ,Lactate/Lactic Acid4.90.4-2.0 mmol/LRESULTS CALLED TO SAKSHI RIZZO RN Performing Lab:see noteML - [facility] LB Reason For Referral No Information Medications Medication SIG (Take, Route, Frequency, Duration) Notes Start Date End Date Status Amitriptyline HCl 25 MG TAKE 1 TABLET BY MOUTH EVERY DAY AT BEDTIME; Duration: 90 ActiveFLUoxetine HCl 40 MGTAKE 1 CAPSULE BY MOUTH EVERY DAY FOR 90 DAYS; Duration: 30ON HOLDActiveExcedrin Migraine 250-250-65 MG2 tablets Orally Once a dayPRNActiveVitamin D3 50 MCG (1999 UT)1 capsule Orally Once a day; Duration: 30 day(s)5ActiveMelatonin 5 MG2 tablet in the evening Orally at bedtime ActiveGabapentin 300 MG1 capsule Orally HS; Duration: 30 days5Active Fluconazole 150 MG1 tablet Orally once; Duration: 1 days5Active Social History Tobacco Use: Social History Observation Description Date Details (start date - stop date) Current Smoker 08/07/2005 - NA Tobacco Use/Smoking Question Answer Notes Patient is a current smoker When did you start smoking?08/07/2005How often do you smoke cigarettes?every day How many cigarettes a day do you smoke?6-10How soon after you wake up do you smoke your first cigarette?6-30 minutesAre you interested in quitting?Not ready to quitAlcohol Screen (Audit-C) Question Answer Notes Did you have a drink containing alcohol in the p ast year? No Ogqkfj9JbovvzmjytsuyiGxhquguwPAUVY-H (Standard) Question Answer Notes Did you have a drink containing alcohol in the p ast year? No Vhcjhp7PanpzgtlrgwbfsBmkipvjn Problems Problem Type SNOMED Code ICD Code Onset Dates Problem Status W/U Status Risk Notes Problem Non-pressure chronic ulcer of other part of left lower leg with fat layer exposed (L97.822)ActiveconfirmedProblemNervous system and sense organ diseases (721825254)Personal history of other diseases of the nervous system and sense organs (Z86.69)ActiveconfirmedProblemObesity (494213542)Obesity (E66.9)Active confirmedProblemAnxiety (23291425)Anxiety (F41.9)ActiveconfirmedProblemArthritis (4763584)Arthritis (M19.90)ActiveconfirmedProblemAnemia (575683644)Anemia (D64.9)ActiveconfirmedProblemDepression (032420454)Depression (F32.9)Active confirmedProblemInsomnia (822897679)Insomnia (G47.00)ActiveconfirmedProblem Vitamin D deficiency (45619136)Vitamin D deficiency (E55.9)Activeconfirmed ProblemMigraine (19023305)Migraine (G43.909)ActiveconfirmedProblemAcute sinusitis (32718878)Acute sinusitis (J01.90)ActiveconfirmedProblemCurrent smoker (58356154)Current smoker (F17.200)ActiveconfirmedProblemRestless legs (16496987) Restless legs (G25.81)ActiveconfirmedProblemIrregular heart beat (382124838) Irregular heart beat (I49.9)ActiveconfirmedProblemBody mass index 40+ - morbidly obese (730485104)BMI 60.0-69.9, adult (Z68.44)ActiveconfirmedProblemAnnual wellness visit (650243241493894)Wellness examination (Z00.00)Activeconfirmed ProblemGastro-esophageal reflux disease (164632277)Gastro-esophageal reflux disease (K21.9)ActiveconfirmedProblemElevated blood pressure (35233193)Elevated blood pressure (I10)ActiveconfirmedProblemDisease caused by Severe acute respiratory syndrome coronavirus 2 (disorder) (721110391)COVID-19 virus infection (U07.1)ActiveconfirmedProblemLow back pain (328960872)Low back pain, unspecified (M54.50)Activeconfirmed Vital Signs Heart Rate 87 /min 01/31/2025 Blood pressure kqmheshji10 mm Hg01/31/20255630Dgmkzy17 in01/31/2025lood pressure tiagklci731 mm Hg01/31/20255544Bcrkue075.0 lbs1MI76.87 kg/m201/31/2025 Encounters Encounter Location Date Provider Diagnosis [address] [place] [address] 02/24/2024 Cheyanne Shanelle Migraine G43.[address] [address] 01/20/2025 Cheyanne Shanelle Neuropathic pain M79.2 ; Elevated blood pressure I10 ; Cellulitis L03.90 and Wellness examination Z00.[address] [address] 01/31/2025 Cheyanne Timmons Anemia D64.9 ; Pre-diabetes R73.03 ; Vitamin D deficiency E55.9 and Migraine G43.909 [facility] [address] [facility] [place] [address] 02/24/2024 Cheyanne Timmons Wellness examination Z00.00 [facility] [address] [facility] [place] [address] 02/26/2024 Cheyanne Timmons [facility] [facility] [place] [address] 01/11[facility] [facility] [place] [address]/02/2025[facility] [facility] [place] [address]/01/2025Cheyanne Timmons Assessments Encounter Date Diagnosis (ICD Code) Assessment Notes Treatment Notes Treatment Clinical Notes Section Notes 02/24/2024 Migraine (ICD-10 - G43.909) Toradol and Norflex IM samples Nurte if meds not helping, fu , discussed imaging 01/20/2025Neuropathic pain (ICD-10 - M79.2) CSA signed [facility] reviewed 01/20/2025Elevated blood pressure (ICD-10 - I10)BP check 2 weeks5Anemia (ICD-10 - D64.9)MVI with iron01/31/2025Pre-diabetes (ICD-10 - R73.03) discussed pre-diabetes grandma with DM2 work on diet wt loss recheck 3-6 m 02/24/2024Wellness examination (ICD-10 - Z00.00)01/31/2025Vitamin D deficiency (ICD-10 - E55.9)5Cellulitis (ICD-10 - L03.90) continue fu ID and wound care improving slowly 01/20/2025Wellness examination (ICD-10 - Z00.00)01/31/2025Migraine (ICD-10 - G43.909)sample nurtec given Plan Of Treatment Pending Test Test [...] ACCESS PPO PLUS LOCAL PLAN [address] [place] [address] [id number] Whitney Kim - patient is the spouse of the insured Medications Administered Medication Instructions Date of Administration Dosage Notes Ketorolac Tromethamine 0 mgOrphenadrine Ltgwamy29/05/404487 mg Medical (General) History Medical History History [...] smoker F17.200 Surgical History Surgery Date(Month/Year) tonsillectomy [id number] removalHospitalization History Reason Date(Month/Year) [facility]- cellulitis and Sepsis
== END 2025-02-16 11:27 | disposition home or self-care (01) ==
LOC: WC 11:27
PROVIDERS: PCP Nurse Practitioner Family; Visit Provider Physician Assistant
DX: L97.822 Non-pressure chronic ulcer of other part of left lower leg with fat layer exposed (principal)
CPT/HCPCS: G0463

== ENCOUNTER 2025-02-21 09:44 | Inpatient (IN) | payer BC, SELFPAY ==
--- OUTSIDE RECORDS SUMMARY | 2025-02-16 08:34 | XMS_ITS | Continuity of Care Document ---
Author Organization [facility] Address [address] [place] [address] Phone Care Team Providers Care Rn Spine Name Role Phone Cheyanne iTmmons NP-C Primary Care Provider Riley Florence MD Attending Provider Care Teams Patient Care Team Team Status: Active Member Role/Relationship Status Dates Cheyanne Timmons NP-Khloe Primary Care Provider Active Visit Care Team Team Status: Inactive Member Role/Relationship Status Dates Cheyanne Timmons NP-C Primary Care Provider Active Start: January 19, 2025 End: January 19, 2025Michael Thomas ProviderActiveStart: January 19, 2025 End: January 19, 2025 Patient Care Team Team Status: Inactive Member Role/Relationship Status Dates Cheyanne Timmons NP-Khloe Primary Care Provider Active Start: February 16, 2025 End: February 16, 2025Michael Thomas ProviderActiveStart: February 16, 2025 End: February 16, 2025 Chief Complaint and Reason for Visit Chief Complaint Admit Date D/C [facility] 01/11/2025 January 19, 2025 1: 23pm 4 week f/u February 16, 2025 1 2:58pm Reason for Visit Admit Date Left leg cellulitis January 19, 2025 1: 23pm Obesity January 19, 2025 1: 23pm Receiving intravenous antibiotic treatme nt as outpatient January 19, 2025 1:23pm Allergies, Adverse Reactions, Alerts Allergen Type Severity Reaction Last Updated Verified Status chlorhexidine Allergy Unknown Unknown Reaction Octob er 2024 1:10pm Yes Active Social History Smoking Status Status Start Date End Date Date of Observa tion Never smoked tobacco (finding) January 19, 2025 10:22am Observation Status Observation Response Date of Response Legal Sex [facility] (finding) [facility] Family History Relationship Condition Age at Onset Recorded Date/T elier father Unknown Heart diseaseUnknown Problems Active Problems Problem Diagnosis/Recorded Date Onset Date Stat us Left leg cellulitis January 19, 2025 9:42am Unknown Active Receiving intravenous antibi otic treatment as outpatient January 19, 2025 2:12pm Unknown Active Anxiety July 09, 2023 9:17am Unknown Acti ve Depression July 09, 2023 9:17am Unknown Acti ve GERD (gastroesophageal reflux disease) July 08 9:23am Unknown Active Obesity January 19, 2025 2:28pm Unknown Act jair Medications Medication Status Dose Units Route Directions Qty Days Refills S tart Date Stop Date End Date Reason(s) Instructions Adherence Linezolid 600 mg tablet Discontinued 600 MG PO Twi ce daily January 19, 2025 12:00amOctober 2024 1:54pmErtapenem 1 gram recon soln Ryzypvsleysp7NZTKXehusXhrogyj 1st, 2025 12:00amOctober 2024 1:20pm Amoxicillin-Pot Clavulanate 875-125 mg duujzxJvqjqkeeuutu3TOSOAQnkgf nerwa36924 January 19, 2025 12:00amOctober 2024 1:20pmLinezolid 600 mg tablet Koqeaxinupky492YZQXKeejh pubno18639Nylmbrw 1st, 2025 1:54pmOctober 2024 1:20pmOmeprazole 40 mg capsule,delayed release(DR/EC)Zzrrqs24QQVQAenltFsuei 2023 12:00amComplies with drug therapyFluoxetine 40 mg jwguemxKojeoj34TJFL [facility]20[facility] 12:00amComplies with drug therapyAmoxicillin 500 mg vgsoiwxGprcrxdeqkdm202CDPUEwqsz times nbwwn05233Mxrvc 2023 12:00amJanuary 2024 10:56amAmitriptyline 25 mg enrvwsOicvae31WBLRVlibdYoluyhu 2024 1:00amComplies with drug therapyBenzonatate 200 mg jsyvotsYdlykldinpzv665ZPDA6-9 TIMES PER DAY as needed for rqevb312Crvbnlh 2024 1:00amJanuary 19, 2025 9:55amFluticasone Propionate (Flonase Allergy Relief) 50 mcg/actuation spray,ondsfncabgMygajjmdrmhv1VDZYCLLHWEKYBSFPqoiv03489Jkmkjnu 2024 1:00am January 19, 2025 9:55amadminister into each nostrilCholecalciferol (Vitamin D3) 50 mcg (2,000 unit) elasjinLxaoge7008TIODXVQisgqPbvvdvv 2024 12:00am Complies with drug therapycalcium carbonate (Calcium 500)ActivePOOctober 2024 12:00amComplies with drug therapy Vital Signs Vital Reading Result Reference Range Collection Date/Time Body Temperature 97.1 [degF] 97.6-99.0 January 1:30pm Heart Rate 91 /min 60-100 January 19 1:30pm BP Systolic 109 mm[Hg] 100-140 January 19 1:30pm BP Diastolic 76 mm[Hg] 60-100 January 19 1:30pm Height 65 [in_i] February 16, 2025 1:98ibXuqhtd499.85 kgOctober 2024 1:25pmBody Qpyxmrravni05.8 [degF]97.6-99.0February 16, 2025 1:25pmHeart Rate76 /ize31-761 February 16, 2025 1:25pmBP Qmxtfjii887 mm[Hg]100-140February 16, 2025 1:25pmBP Gncryjfon60 mm[Hg]60-100October 2024 1:25pmBMI (Body Mass Index)72.2 kg/x3Iewbnoq 2024 1:25pm Advance Directives Advance Directive Response Recorded Date/ Time Advance Directives No February 7:44am Insurance Providers Guarantor Marie Zee Address [address] [facility] [address]Sruiyjw Info.Home Phone: Payer Group Member ID Coverage Type Subscriber Relationship to Subscriber Effective Date Expiration Date MMO Id: [id number] R [place] Id: [id number] [address] [facility] [address] Home Phone: Anthem FRANCO/BS [id number] Kenjilaurabala Id: [id number] [address] [facility] [address] Home Phone: self Encounters Encounter Location(s) Arrival/Admit Date Discharge/Departure Date Discharge/Departure Disposition Provider(s) Departed Physician/ Provider Office Visit -[facility] January 19, 2025 1:23pm January 19, 2025 1:53pm Discharged to home care or self care (routine discharge) Riley Florence MD Departed Physician/ Provider Office Visit -[facility] February 16, 2025 12:58pm February 16, 2025 1:33pm Discharged to home care or self care (routine discharge) Riley Florence MD Recent Diagnosis Onset Date Admit Date Left leg cellulitis Unknown January 19, 2025 1:23pm Obesity Unknown January 19 1:23pm Receiving intravenous antibi otic treatment as outpatient Unknown January 19, 2025 1:23pm Assessments Diagnosis Onset Date Resolution Status Admit Date Left leg cellulitis acuteOctober 2024 1:23pmObesityacuteOctober 2024 1:23pmReceiving intravenous antibiotic treatment as outpatientacuteOctober 2024 1:23pm
[2025-02-21] VITALS (12 sets, daily range): BP systolic 106–134; BP diastolic 68–79; PULSE 106–130; TEMP 36.8–38.2; O2SAT 90–97; BMI 74.2; BMI 72.3
--- OUTSIDE RECORDS SUMMARY | 2025-02-21 10:12 | XMS_ITS | Patient Health Record ---
Author Organization [facility] [place] Address [address] [place] [address] Care Team Providers Care Preschool Assistant Name Role Phone Cheyanne Timmons Primary Care Provider [phone] Allergies Allergen (clinical drug ingredient) Drug/Non Drug Allergy documented on EMR Reaction Allergy Type Onset Date Status chlorhexidine Chlorhexidine Gluconate hives Drug Kvng rgy Active Results Component Value Reference Range Notes CBC AUTO DIFF Reviewed date:01/06/2025 10:48:27 AM Interpretation: Performing Lab: Notes/Report: [facility] , White Blood Count 17.5 4.0-11.0 10 3/uL Red Blood Count4.874.20-5.40 10 6/rHPdfnfsxnqx23.612.0-16.0 g/jHOxkpinxnov01.6 36.0-48.0 %Mean Corpuscular Jdiaoe88.381.0-99.0 fLMean Corpuscular Hemoglobin 25.926.7-34.0 pgMean Corpuscular HGB Conc32.629.9-35.2 g/dLRed Cell Distribution Width15.811.0-15.0 %Platelet Eqais394834-028 10 3/uLMean Platelet Volume9.79.5- 13.5 fLNeutrophils Percent Auto91.143.0-75.0 %Lymphocytes Percent Auto5.820.5- 60.0 %Monocytes Percent Auto2.51.7-12.0 %Eosinophils Percent Auto0.00.9-7.0 % Basophils Percent Auto0.20.2-2.0 %Immature Granulocytes Pct Auto0.40.0-0.5 % Neutrophils Absolute Auto16.01.4-6.5 10 3/uLLymphocytes Absolute Auto1.01.2-3.8 10 3/uLMonocytes Absolute Auto0.40.3-0.8 10 3/uLEosinophils Absolute Auto0.00.0- 0.7 10 3/uLBasophils Absolute Auto0.00.0-0.1 10 3/uLImmature Granulocytes Abs Auto0.070.00-0.03 10 3/uLPerforming Lab:see note - [facility] LB PROF 14(COMP METB) Reviewed date:01/06/2025 10:48:27 AM Interpretation: Performing Lab: Notes/Report: [facility] ,Qmuwtt075452-885 mmol/LPotassium3.43.5-5.1 mmol/IXjrxwmmx5681-773 mmol/LCarbon Cvzamwv81.621.0-32.0 mmol/LAnion Gap16.2Lscstqw43581-452 mg/dLBlood Urea Yqvapgyd05.07.0-18.0 mg/dLCreatinine1.180.55-1.02 mg/dLEstimated GFR ( Fidelia>60>=60 mL/min/1.73m 2Estimated GFR (Non- Ame51>=60 mL/min/1.73m 2 BUN Creatinine Ratio10.5Jqvyjgf7.88.5-10.1 mg/dLBilirubin Total0.70.2-1.0 mg/dL Aspartate Amino Lrygtnixcos0468-79 U/LAlanine Cccryqcbxgqnmwue9590-75 U/L Alkaline Kfulzdtunoe8601-036 U/LTotal Protein8.26.4-8.2 g/dLAlbumin Level3.23.4- 5.0 g/dLGlobulin5.0Albumin Globulin Ratio0.6Performing Lab:see note - [facility] LBG Qualitative* Reviewed date:01/06/2025 10:48:27 AM Interpretation: Performing Lab: Notes/Report: [facility] ,HCG QualitativeNEGATIVENEGATIVEPerforming Lab:see noteML - [facility] LBXR tibia fibula LT 2V Reviewed date:01/06/2025 10:48:27 AM Interpretation: Performing Lab: Notes/Report: Source Facility: [facility]-[address] [place] [address] XRay Report Signed Patient: MARIE KIM MR#: [id number] : 1985 Acct:[id number] Age/Sex: 39 / F ADM Date: 01/05/25 Loc: ER Attending Dr: Ordering Physician: Shelley Avila Date of Service: 01/05/25 Procedure(s): XR tibia fibula LT 2V Accession Number(s): [id number] cc: CHEYANNE TIMMONS ; Shelley Avila [place] [address] Patient Name: MARIE KIM MRN: [facility]:[id number] date: 1985 Sex: F Assigned Patient Location: ER Current Patient Location: ER Accession/Order Number: [id number] Exam Date: 01/05/2025 21:48 Report Date: 01/05/2025 [...] Mcgarry M.D. 01/05/2025 10:01 PM Dictation Location: [place] [address] Electronically authenticated by: [id number] Y Date: 01/05/2025 22:01 Dictated By: Bran Mcgarry M.D. Signed By: 01/05/252203 DD/ 00 TD/TT: Scientific Linguist:LACTATE or LACTIC ACID Reviewed date:01/06/2025 10:48:27 AM Interpretation: Performing Lab: Notes/Report: Y [facility] ,Lactate/Lactic Acid1.40.4-2.0 mmol/LPerforming Lab:see note - [facility] LBPROF 14(COMP METB) Reviewed date:01/06/2025 10:48:27 AM Interpretation: Performing Lab: Notes/Report: [facility] ,Frimas403523-175 mmol/LPotassium3.53.5-5.1 mmol/IEwwkciaz0626-197 mmol/LCarbon Ytgfdrm23.021.0-32.0 mmol/LAnion Gap12.2Gadekbj72922-280 mg/dLBlood Urea Grqjbuxn84.07.0-18.0 mg/dLCreatinine0.930.55-1.02 mg/dLEstimated GFR ( Fidelia>60>=60 mL/min/1.73m 2Estimated GFR (Non- Brisa>60>=60 mL/min/1.73m 2BUN Creatinine Ratio11.8Dhlpjmd4.28.5-10.1 mg/dLBilirubin Total0.50.2-1.0 mg/dL Aspartate Amino Nsjrsolmwtu0727-69 U/LAlanine Lnxkvewdtbornmil6339-31 U/L Alkaline Eypseamtzta0134-737 U/LTotal Protein7.66.4-8.2 g/dLAlbumin Level2.83.4- 5.0 g/dLGlobulin4.8Albumin Globulin Ratio0.6Performing Lab:see noteML - [facility] LBCBC no Diff (Hemogram) Reviewed date:01/06/2025 10:48:27 AM Interpretation: Performing Lab: Notes/Report: [facility] ,White Blood Count15.14.0-11.0 10 3/uLRed Blood Count4.594.20-5.40 10 6/uL Ritmwxgkum30.812.0-16.0 g/zCWyjrkfxetw34.536.0-48.0 %Mean Corpuscular Oqbfdf98.5 81.0-99.0 fLMean Corpuscular Xlwyvxtvzr05.726.7-34.0 pgMean Corpuscular HGB Conc 32.329.9-35.2 g/dLRed Cell Distribution Width15.911.0-15.0 %Platelet Bbajk539 150-450 10 3/uLMean Platelet Dqxvfb11.29.5-13.5 fLPerforming Lab:see noteML - [facility] LBLACTATE or LACTIC ACID Reviewed date:01/06/2025 10:48:27 AM Interpretation: Performing Lab: Notes/Report: [facility] ,Lactate/Lactic Acid0.80.4-2.0 mmol/LPerforming Lab:see note - [facility] LBPROF CHEM 8 (BAS METB) Reviewed date:01/10/2025 08:31:32 AM Interpretation: Performing Lab: Notes/Report: [facility] ,Dgdwmb344511-089 mmol/LPotassium3.23.5-5.1 mmol/SVxybbhhk17344-598 mmol/LCarbon Qikkjzq15.321.0-32.0 mmol/LAnion Gap13.5Biwewha2099-549 mg/dLBlood Urea Nitrogen 10.07.0-18.0 mg/dLCreatinine0.950.55-1.02 mg/dLEstimated GFR ( Fidelia>60 >=60 mL/min/1.73m 2Estimated GFR (Non- Brisa>60>=60 mL/min/1.73m 2BUN Creatinine Ratio10.3Pxaijfl9.28.5-10.1 mg/dLPerforming Lab:see noteML - [facility] LBAerobic Culture Reviewed date:01/11/2025 09:30:28 AM Interpretation: Performing Lab: Notes/Report: [facility] ,Aerobic CultureSee Below For Report Aerobic Culture Aerobic CultureNo growth after 18-24 hours. Aerobic Culture Aerobic Culture Aerobic Culture Aerobic CultureNo growth in 36 - 48 hours. Aerobic Culture Aerobic CulturePerformed at: - [facility] Aerobic Culture Aerobic [address] [place], [place] [id number] Aerobic Culture Aerobic CultureLab Director: Rafat Johnson PhD, Phone: [phone] Aerobic Culture Performing Lab:see note SEE REPORT - Pharmacy Helper Id information not found for OBX-specific studio producer legend LC - [facility] LB PROF CHEM 8 (Causes METB) Reviewed date:01/10/2025 08:31:32 AM Interpretation: Performing Lab: Notes/Report: [facility] ,Pklvul107635-283 mmol/LPotassium3.33.5-5.1 mmol/VFmvemrci54146-549 mmol/LCarbon Xwpfhon41.321.0-32.0 mmol/LAnion Gap15.6Fbnsjti4194-885 mg/dLBlood Urea Nitrogen 8.07.0-18.0 mg/dLCreatinine1.060.55-1.02 mg/dLEstimated GFR ( Fidelia>60 >=60 mL/min/1.73m 2Estimated GFR (Non- Ame58>=60 mL/min/1.73m 2BUN Creatinine Ratio7.2Tiinsmc0.58.5-10.1 mg/dLPerforming Lab:see noteML - [facility] LBPROF CHEM 8 (Causes METB) Reviewed date:01/10/2025 08:31:32 AM Interpretation: Performing Lab: Notes/Report: [facility] ,Ukibpm526434-292 mmol/LPotassium3.63.5-5.1 mmol/LViscleka40734-580 mmol/LCarbon Bjggxtv29.821.0-32.0 mmol/LAnion Gap13.5Hfelpqm57475-915 mg/dLBlood Urea Nitrogen6.07.0-18.0 mg/dLCreatinine1.010.55-1.02 mg/dLEstimated GFR ( Fidelia>60>=60 mL/min/1.73m 2Estimated GFR (Non- Brisa>60>=60 mL/min/1.73m 2BUN Creatinine Ratio5.7Xbxwkjd6.28.5-10.1 mg/dLPerforming Lab:see noteML - [facility] LBCBC no Diff (Hemogram) Reviewed date:01/10/2025 08:31:32 AM Interpretation: Performing Lab: Notes/Report: [facility] ,White Blood Count11.14.0-11.0 10 3/uLRed Blood Count4.084.20-5.40 10 6/uL Lcwunozdmy08.412.0-16.0 g/vGSwmlsnggzq38.236.0-48.0 %Mean Corpuscular Eskgps19.4 81.0-99.0 fLMean Corpuscular Axhvustfac85.526.7-34.0 pgMean Corpuscular HGB Conc 31.329.9-35.2 g/dLRed Cell Distribution Width15.811.0-15.0 %Platelet Abnvy297 150-450 10 3/uLMean Platelet Volume9.59.5-13.5 fLPerforming Lab:see noteML - [facility] LBCRP Reviewed date:01/12/2025 08:42:48 AM Interpretation: Performing Lab: Notes/Report: [facility] ,C Reactive Tfvbjal89.13<=0.50 mg/dLPerforming Lab:see note - [facility] LBPROF CHEM 8 (BAS METB) Reviewed date:01/12/2025 08:42:48 AM Interpretation: Performing Lab: Notes/Report: [facility] ,Ivuicv663849-522 mmol/LPotassium3.83.5-5.1 mmol/QKlughnbg6718-800 mmol/LCarbon Owvchyl80.721.0-32.0 mmol/LAnion Gap10.8Gybzvym2020-253 mg/dLBlood Urea Nitrogen 7.07.0-18.0 mg/dLCreatinine1.070.55-1.02 mg/dLEstimated GFR ( Fidelia>60 >=60 mL/min/1.73m 2Estimated GFR (Non- Ame57>=60 mL/min/1.73m 2BUN Creatinine Ratio6.3Yaejdmm5.58.5-10.1 mg/dLPerforming Lab:see noteML - [facility] LBCBC no Diff (Hemogram) Reviewed date:01/12/2025 08:42:48 AM Interpretation: Performing Lab: Notes/Report: [facility] ,White Blood Count9.54.0-11.0 10 3/uLRed Blood Count4.214.20-5.40 10 6/uL Kkwlmnkwbp34.712.0-16.0 g/gAEktducxcna63.436.0-48.0 %Mean Corpuscular Jtstjb08.7 81.0-99.0 fLMean Corpuscular Yywyatsvdl58.426.7-34.0 pgMean Corpuscular HGB Conc 31.129.9-35.2 g/dLRed Cell Distribution Width15.611.0-15.0 %Platelet Cxyog793 150-450 10 3/uLMean Platelet Volume9.29.5-13.5 fLPerforming Lab:see noteML - [facility] LBCBC AUTO DIFF Reviewed date:01/19/2025 08:33:20 AM Interpretation: Performing Lab: Notes/Report: [facility] ,White Blood Count6.84.0-11.0 10 3/uLRed Blood Count4.404.20-5.40 10 6/uL Ldpbtcnuvt66.312.0-16.0 g/uKVoqipbpydt83.836.0-48.0 %Mean Corpuscular Rpxfpo47.4 81.0-99.0 fLMean Corpuscular Nzpyipgacw53.726.7-34.0 pgMean Corpuscular HGB Conc 31.629.9-35.2 g/dLRed Cell Distribution Width15.211.0-15.0 %Platelet Xtsgm488 150-450 10 3/uLMean Platelet Volume9.69.5-13.5 fLNeutrophils Percent Auto65.7 43.0-75.0 %Lymphocytes Percent Auto23.720.5-60.0 %Monocytes Percent Auto6.11.7- 12.0 %Eosinophils Percent Auto3.30.9-7.0 %Basophils Percent Auto0.60.2-2.0 % Immature Granulocytes Pct Auto0.60.0-0.5 %Neutrophils Absolute Auto4.51.4-6.5 10 3/uLLymphocytes Absolute Auto1.61.2-3.8 10 3/uLMonocytes Absolute Auto0.40.3-0.8 10 3/uLEosinophils Absolute Auto0.20.0-0.7 10 3/uLBasophils Absolute Auto0.00.0- 0.1 10 3/uLImmature Granulocytes Abs Auto0.040.00-0.03 10 3/uLPerforming Lab:see noteML - [facility] LBCRP Reviewed date:01/19/2025 08:33:20 AM Interpretation: Performing Lab: Notes/Report: [facility] ,C Reactive Protein3.43<=0.50 mg/dLPerforming Lab:see noteML - [facility] LBPROF CHEM 8 (BAS METB) Reviewed date:01/19/2025 08:33:20 AM Interpretation: Performing Lab: Notes/Report: [facility] ,Udkipl479325-061 mmol/LPotassium4.03.5-5.1 mmol/VJeedbwjd86395-668 mmol/LCarbon Rpuibco31.021.0-32.0 mmol/LAnion Gap15.7Wanxurp64535-022 mg/dLBlood Urea Zexiycic98.07.0-18.0 mg/dLCreatinine1.130.55-1.02 mg/dLEstimated GFR ( Fidelia>60>=60 mL/min/1.73m 2Estimated GFR (Non- Ame54>=60 mL/min/1.73m 2 BUN Creatinine Ratio11.5Liwmyjn4.98.5-10.1 mg/dLPerforming Lab:see noteML - [facility] LBCBC AUTO DIFF Reviewed date:01/26/2025 10:50:47 AM Interpretation: Performing Lab: Notes/Report: [facility] ,White Blood Count6.64.0-11.0 10 3/uLRed Blood Count4.554.20-5.40 10 6/uL Tubpfnsqhc01.512.0-16.0 g/xPKynfwjvwba17.036.0-48.0 %Mean Corpuscular Zesswj90.3 81.0-99.0 fLMean Corpuscular Sjxftkoziw40.326.7-34.0 pgMean Corpuscular HGB Conc 31.129.9-35.2 g/dLRed Cell Distribution Width15.211.0-15.0 %Platelet Kivum421 150-450 10 3/uLMean Platelet Volume9.69.5-13.5 fLNeutrophils Percent Auto59.3 43.0-75.0 %Lymphocytes Percent Auto29.320.5-60.0 %Monocytes Percent Auto6.21.7- 12.0 %Eosinophils Percent Auto3.50.9-7.0 %Basophils Percent Auto1.40.2-2.0 % Immature Granulocytes Pct Auto0.30.0-0.5 %Neutrophils Absolute Auto3.91.4-6.5 10 3/uLLymphocytes Absolute Auto1.91.2-3.8 10 3/uLMonocytes Absolute Auto0.40.3-0.8 10 3/uLEosinophils Absolute Auto0.20.0-0.7 10 3/uLBasophils Absolute Auto0.10.0- 0.1 10 3/uLImmature Granulocytes Abs Auto0.020.00-0.03 10 3/uLPerforming Lab:see note - [facility] LBFREE T3 Reviewed date:01/26/2025 10:50:47 AM Interpretation: Performing Lab: Notes/Report: [facility] ,Free T32.292.18-3.98 pg/mLPerforming Lab:see note - [facility] GLYCOHEMOGLOBIN A1C Reviewed date:01/26/2025 10:50:47 AM Interpretation: Performing Lab: Notes/Report: [facility] ,Glycohemoglobin A1C5.84.5-6.2 % ACTION SUGGESTED ADA RECOMMENDED LIMIT 4.0 - 6.0 > 7.0 ADA THERAPEUTIC TARGET < 7.0 Estimated Average Okubsfj684Mklqlgwrch Lab:see note - [facility] LB INSULIN Reviewed date:01/26/2025 10:50:47 AM Interpretation: Performing Lab: Notes/Report: [facility] ,Zeenrwj85.92.6-24.9 uIU/mL Performed at: - [facility] [employer] Operator: Rafat Johnson PhD, Phone: [phone] [address] [place], [place] [phone] Performing Lab:see note - [facility] LBIRON Reviewed date:01/26/2025 10:50:47 AM Interpretation: Performing Lab: Notes/Report: [facility] ,Iron53.050.0-170.0 ug/dLPerforming Lab:see note - [facility] LB LIPID PROFILE Reviewed date:01/26/2025 10:50:47 AM Interpretation: Performing Lab: Notes/Report: [facility] ,Pgllfpgwcjzbt675<=150 mg/mJPmwxzpmjdjn254<=200 mg/dLHDL Apmrrwjamld7312-18 mg/dL > or =60 mg/dl - LOW CARDIOVASCULAR RISK <40 mg/dl - HIGH CARDIOVASCULAR RISK LDL Cholesterol Ydvqgxtpvi23.0 100-129 mg/dl NEAR OR ABOVE OPTIMAL >190 mg/dl VERY HIGH 160-189 mg/dl HIGH <100 mg/dl OPTIMAL 130-159 mg/dl BORDERLINE HIGH VLDL OHTHLEEGUCJ25.0Chol HDL Ratio4.5 7.1 - 11.0 MODERATE RISK 4.4 - 7.1 AVERAGE RISK >11.0 HIGH RISK 3.3 - 4.4 LOW RISK Performing Lab:see noteML - [facility] LBPROF 14(COMP METB) Reviewed date:01/26/2025 10:50:47 AM Interpretation: Performing Lab: Notes/Report: [facility] ,Pboydf858661-546 mmol/LPotassium4.33.5-5.1 mmol/HRrmhaike89890-247 mmol/LCarbon Ylpiaxw14.921.0-32.0 mmol/LAnion Gap13.0Qrnmoja4497-138 mg/dLBlood Urea Nitrogen 13.07.0-18.0 mg/dLCreatinine1.130.55-1.02 mg/dLEstimated GFR ( Fidelia>60 >=60 mL/min/1.73m 2Estimated GFR (Non- Ame54>=60 mL/min/1.73m 2BUN Creatinine Ratio11.2Sxjgbtu0.68.5-10.1 mg/dLBilirubin Total0.40.2-1.0 mg/dL Aspartate Amino Jxcruvzjxxr9277-02 U/LAlanine Zknbmhlpzvbguxvi1342-69 U/L Alkaline Iumfmpvobrv39495-121 U/LTotal Protein7.66.4-8.2 g/dLAlbumin Level3.3 3.4-5.0 g/dLGlobulin4.3Albumin Globulin Ratio0.8Performing Lab:see noteML - [facility] LBT4 Reviewed date:01/26/2025 10:50:47 AM Interpretation: Performing Lab: Notes/Report: [facility] ,T4 Thyroxine8.404.80-13.90 ug/dLPerforming Lab:see noteML - [facility] LBTSH Reviewed date:01/26/2025 10:50:47 AM Interpretation: Performing Lab: Notes/Report: [facility] ,Thyroid Stimulating Hormone2.0500.358-3.740 uIU/mLPerforming Lab:see note - [facility] LBVITAMIN D 25 [place] Reviewed date:01/27/2025 03:36:03 PM Interpretation: Performing Lab: Notes/Report: [facility] ,Vitamin D23.3 30-100 ng/mL Vit D sufficient 20-<30 ng/mL Vit D insufficient <20 ng/mL Vit D deficient >100 ng/mL Potential Toxicity Performing Lab:see note - [facility] LBVANCOMYCIN TROUGH Reviewed date:01/11/2025 10:59:12 AM Interpretation: Performing Lab: Notes/Report: [facility] ,Vancomycin Trough8.85.0-20.0 ug/mLPerforming Lab:see note - [facility] LBAerobic Culture Reviewed date:01/17/2025 09:13:45 AM Interpretation: Performing Lab: Notes/Report: [facility] ,Aerobic CultureSee Below For ReportAerobic CultureAerobic CultureNo growth after 18-24 hours.Aerobic CultureAerobic CultureAerobic CultureAerobic CultureNo growth in 36 - 48 hours.Aerobic CultureAerobic CulturePerformed at: [facility] CultureAerobic [address] [place], [place] [id number] Aerobic CultureAerobic CultureLab Director: Rafat Johnson PhD, Phone: [phone] CulturePerforming Lab:see note SEE REPORT - Pharmacy Helper Id information not found for OBX-specific studio producer legend - [facility] LB Anaerobic Culture Reviewed date:01/17/2025 09:13:45 AM Interpretation: Performing Lab: Notes/Report: [facility] ,Anaerobic CultureSee Below For Report Anaerobic Culture Anaerobic CultureNo aerobic or anaerobic growth in 72 hours. Anaerobic Culture Performing Lab:see note - [facility] LBVANCOMYCIN TROUGH Reviewed date:01/10/2025 08:31:32 AM Interpretation: Performing Lab: Notes/Report: [facility] ,Vancomycin Oocjzo14.15.0-20.0 ug/mLPerforming Lab:see noteML - [facility] LBCT lower leg LT wo con Reviewed date:01/07/2025 10:31:24 AM Interpretation: Performing Lab: Notes/Report: Source Facility: [facility]-[address] [place] [address] [place] [address] CT Scan Report Signed Patient: MARIE KIM MR#: [id number] : 1985 Acct:[id number] Age/Sex: 39 / F ADM Date: 01/05/25 Loc: [place] 219-[address]: Mali Austin M.D. Ordering Physician: Mali Austin M.D. Date of Service: 01/07/25 Procedure(s): CT lower leg LT wo con Accession Number(s): [id number] cc: CHEYANNE TIMMONS [place] [address] Patient Name: MARIE KIM MRN: [facility]:[id number] date: 1985 Sex: F Assigned Patient Location: [place] Current Patient Location: [place] Accession/Order Number: [id number] Exam Date: 01/07/2025 09:30 Report Date: 01/07/2025 [...] Richmond M.D. 01/07/2025 10:13 AM Dictation Location: [place] [address] Electronically authenticated by: [id number] Y Date: 01/07/2025 10:13 Dictated By: Jaquelin Richmond M.D. Signed By: 01/07/25 1016 DD/ 1013 TD/TT: Scientific Linguist:Blood Culture 2 Reviewed date:01/11/2025 04:31:11 PM Interpretation: Performing Lab: Notes/Report: [facility] ,Blood Culture 2See Below For Report NG5D NO GROWTH AT 5 DAYS.^NO GROWTH AT 5 DAYS. Blood Culture 2 Performing Lab:see note - [facility] LBBlood Culture 1 Reviewed date:01/11/2025 04:31:11 PM Interpretation: Performing Lab: Notes/Report: [facility] ,Blood Culture 1See Below For Report NG5D NO GROWTH AT 5 DAYS.^NO GROWTH AT 5 DAYS. Blood Culture 1 Performing Lab:see note - [facility] LBLACTATE or LACTIC ACID Reviewed date:01/06/2025 10:48:27 AM Interpretation: Performing Lab: Notes/Report: [facility] ,Lactate/Lactic Acid4.90.4-2.0 mmol/LRESULTS CALLED TO SAKSHI RIZZO RN Performing Lab:see note - [facility] LB Reason For Referral No Information [...] alcohol in the p ast year? No Inahtq9HibfymcyffgondMidnfxjtQZBRU-C (Standard) Question Answer Notes Did you have a drink containing alcohol in the p ast year? 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)ActiveconfirmedProblemNervous system and sense organ diseases (757320578)Personal history of other diseases of the nervous system and sense organs (Z86.69)ActiveconfirmedProblemObesity (153963480)Obesity (E66.9)Active confirmedProblemAnxiety (48214727)Anxiety (F41.9)ActiveconfirmedProblemArthritis (1682132)Arthritis (M19.90)ActiveconfirmedProblemAnemia (176050080)Anemia (D64.9)ActiveconfirmedProblemDepression (270190101)Depression (F32.9)Active confirmedProblemInsomnia (607543985)Insomnia (G47.00)ActiveconfirmedProblem Vitamin D deficiency (45336855)Vitamin D deficiency (E55.9)Activeconfirmed ProblemMigraine (64762965)Migraine (G43.909)ActiveconfirmedProblemAcute sinusitis (22418820)Acute sinusitis (J01.90)ActiveconfirmedProblemCurrent smoker (84776103)Current smoker (F17.200)ActiveconfirmedProblemRestless legs (28232929) Restless legs (G25.81)ActiveconfirmedProblemIrregular heart beat (591793005) Irregular heart beat (I49.9)ActiveconfirmedProblemBody mass index 40+ - morbidly obese (559464462)BMI 60.0-69.9, adult (Z68.44)ActiveconfirmedProblemAnnual wellness visit (356990351766762)Wellness examination (Z00.00)Activeconfirmed ProblemGastro-esophageal reflux disease (218646169)Gastro-esophageal reflux disease (K21.9)ActiveconfirmedProblemElevated blood pressure (15165038)Elevated blood pressure (I10)ActiveconfirmedProblemDisease caused by Severe acute respiratory syndrome coronavirus 2 (disorder) (172150839)COVID-19 virus infection (U07.1)ActiveconfirmedProblemLow back pain (116993394)Low back pain, unspecified (M54.50)Activeconfirmed Vital Signs Heart Rate 87 /min 01/31/2025 Blood pressure lmldjiovx09 mm Hg01/31/20250843Zvkwja85 in01/31/2025lood pressure hhcceouv854 mm Hg01/31/20255883Hcayhm772.0 lbs1MI76.87 kg/m201/31/2025 Encounters Encounter Location Date Provider Diagnosis [facility] [address] [place] [address] 02/24/2024 Cheyanne Timmons Wellness examination Z00.00 [facility] [address] [place] [address] 02/26/2024 Cheyanne Timmons [facility] [place] [address] [facility] [place] [address]/05/2024P[place] [address] [facility] [address]/01/2025Pamela [facility] [place] [facility] [place] [address]/4Pamela Shanelle Migraine G43.909[place] [address] [place] [place] [address]/05/2024Pamela CramerNeuropathic pain M79.2 ; Elevated blood pressure I10 ; Cellulitis L03.90 and Wellness examination Z00.00[place] [address] [facility] [address]/Pamela CramerAnemia D64.9 ; Pre-diabetes R73.03 ; Vitamin D deficiency E55.9 and Migraine G43.909 Assessments Encounter Date Diagnosis (ICD Code) Assessment Notes Treatment Notes Treatment Clinical Notes Section Notes 02/24/2024 Migraine (ICD-10 - G43.909) Toradol and Norflex IM samples Nurtec if meds not helping, fu , discussed imaging 01/20/2025Neuropathic pain (ICD-10 - M79.2) CSA signed [facility] reviewed 01/20/2025Elevated blood pressure (ICD-10 - I10)BP check 2 weeks01/31/2025nemia (ICD-10 - D64.9)MVI with iron01/31/2025Pre-diabetes (ICD-10 - R73.03) discussed pre-diabetes grandma with DM2 work on diet wt loss recheck 3-6 m 02/24/2024Wellness examination (ICD-10 - Z00.00)01/31/2025Vitamin D deficiency (ICD-10 - E55.9)01/20/2025ellulitis (ICD-10 - L03.90) continue fu ID and wound care improving slowly 01/20/2025Wellness examination (ICD-10 - Z00.00)01/31/2025Migraine (ICD-10 - G43.909)sample [facility] given Plan Of Treatment Pending Test Test Name Order Date CMP (COMPLETE METABOLIC PANEL) 4 HEMOGLOBIN A1C (GLYCO) 02/24/2024 HEMOGLOBIN A1C (GLYCO) 01/20/2025 INSULIN, TOTAL 02/24/2024 IRON, TOTAL 01/20/2025 LIPID PANEL (CHOL/TRIG/HDL/LDL) 02/24/20 24 LIPID PANEL (CHOL/TRIG/HDL/LDL) 01/21/20 25 CBC WITH DIFF 02/24/2024 VITAMIN D, 25 LEVEL (TOTAL) 01/20/2025 Insulin Level 01/20/2025 THYROID PANEL (T4/TSH/FREE T3) THYROID PANEL (T4/TSH/FREE T3) 4 CMP (COMP MET MORALES) w/eGFR CKD-EPI 2024 CBC WITH DIFF 01/20/2025 Insurance Providers Payer Name Payer Address Payer Phone Subscriber Number Group Number Insured Name Patient Relationship to Insured Coverage Start Date Coverage End Date [employer] ACC[employer] PPO PLUS LOCAL PLAN [address] [place] [address] [id number] Whitney Kim - patient is the spouse of the insured Medications Administered Medication Instructions Date of Administration Dosage Notes Ketorolac Tromethamine 460 mgOrphenadrine Lowhqmb41/05/337519 mg Medical (General) History Medical History History [...] smoker F17.200 Surgical History Surgery Date(Month/Year) x2 gallbladder removaltonsillectomyHospitalization History Reason Date(Month/Year) [facility]- cellulitis and Sepsis
--- OUTSIDE RECORDS SUMMARY | 2025-02-21 10:12 | XMS_ITS | Clinical Summary ---
Author Organization [facility] Address [address], [address] [place] [address] Care Team Providers Care Managing Principal Name Role Phone Unavailable Primary Care Provider [...] DateRoutine follow-up05/20/2012 Immunizations ImmunizationAdministration DatesNext DueInfluenza Virus Nibvhgb5204/11/2012TDaP, ADACEL (age 10y-64y), BOOSTRIX (age 10y+), IM, 0.5mL04/12/2012 Family History Medical HistoryRelationNameCommentsHeart DiseaseFatherCancerMaternal Grandfather CancerMaternal GrandmotherDiabetesMaternal GrandmotherRelationNameStatusComments FatherMaternal GrandfatherMaternal Grandmother Social History Tobacco UseTypesPacks/DayYears UsedDateSmoking Tobacco: FormerCigarettes0.36 Smokeless Tobacco: Never Tobacco Cessation:Ready to Q uit: No; Counseling Given: No Alcohol UseStandard Drinks/WeekCommentsNo0 (1 standard drink = 0.6 oz pure alcohol)CommentsNoSex and Gender InformationValueDate RecordedSex Assigned at BirthNot on fileLegal GitVubqht20/10/2013 12:26 PM ESTGender IdentityNot on fileSexual OrientationNot on file Last Filed Vital Signs Vital SignReadingTime TakenCommentsBlood Wwxqeyyg865/80005/20/2012 3:40 PM EST Wpylo526904/12/2012 12:30 PM SMJYzhfzlewwrz93.7 ??C (98 ??F)04/12/2012 12:30 PM ESTRespiratory Ngye928306/13/2011 12:30 PM ESTOxygen Mqtjaxcwlm14%04/09/2012 12:37 PM ESTInhaled Oxygen Concentration--Mveeyb456.2 kg (265 lb)05/20/2012 3:40 PM NFBJwnukm634.1 cm (5' 5 )05/20/2012 3:40 PM ESTBody Mass Index44. 3:40 PM EST Plan of Treatment Not on file Advance Directives * Full Code (Latest Code Status on File) Date ActivatedDate LzumcpmjttwKamrtjfy24/20/2012 12:29 PM04/12/2012 6:06 PM * Full Code Date ActivatedDate QjecgiajmmxJapuxkdm83/20/2012 6:47 AM04/09/2012 12:29 PM
[2025-02-21] MEDS: 0.9 % SODIUM CHLORIDE 1,000 ML 1000 ML IV ×2 (10:27→13:36)
[2025-02-21] MEDS: VANCOMYCIN HCL 1,500 MG in 0.9 % SODIUM CHLORIDE 500 ML 250 MG IV (10:27)
[2025-02-21 10:28] LABS: Hematocrit 35.0 % (36.0-48.0); Hemoglobin 11.4 g/dL (12.0-16.0); Immature Granulocytes Abs Auto 0.08 10^3/uL (0.00-0.03); Immature Granulocytes Pct Auto 0.4 % (0.0-0.5); Lymphocytes Absolute Auto 0.8 10^3/uL (1.2-3.8); Mean Corpuscular HGB Conc 32.6 g/dL (29.9-35.2); Mean Corpuscular Hemoglobin 26.6 pg (26.7-34.0); Mean Corpuscular Volume 81.8 fL (81.0-99.0); Platelet Count 243 10^3/uL (150-450); Red Blood Count 4.28 10^6/uL (4.20-5.40); White Blood Count 17.8 10^3/uL (4.0-11.0)
--- NOTE | 2025-02-21 10:37 | XR_ITS ---
The [address] [address] Patient Name: TUCKER KIM MRN: [id number] date: 1985 Sex: F Assigned Patient Location: ER Current Patient Location: ER Accession/Order Number: [id number] Exam Date: 02/21/2025 11:00 Report Date: 02/21/2025 11:51 At the request of: ARTURO LEWIS MD Procedure: XR tibia fibula LT 2V LEFT TIBIA AND FIBULA - 2 views CLINICAL HISTORY: swelling and erythema at the left lower leg. History of cellulitis COMPARISON: 01/05/2025 AP and lateral views of the left tibia and fibula were obtained. There is no developing fracture, dislocation or bony destruction. There is continued diffuse soft tissue prominence as well as subcutaneous edema. XR/XR tibia fibula LT 2V IMPRESSION: NO ACUTE BONY FINDINGS. Impression dictated by: Jaquelin Richmond M.D. 02/21/2025 11:51 AM Dictation Location: [place] [address] Electronically authenticated by: [id number] Y Date: 02/21/2025 11:51
--- NOTE | 2025-02-21 10:39 | ED.EXTPRO1 ---
HPI - Extremity Problem General Chief complaint: Extremity Problem, Nontraumatic Stated complaint: LOWER EXTREMITY PAIN/SWELLING Time Seen by Provider: 02/21/25 09:58 Source: patient Mode of arrival: walk-in History of Present Illness HPI Narrative: The patient 39-year-old female who have history of cellulitis the left lower extremity almost 2 months ago presenting to the ER again after she started having redness in the left lower extremity which is the same side that she had cellulitis and 2 months ago patient started having nausea vomiting as well and feeling sick, this morning the redness extended almost 50% since last night up to her thigh, there is no history of fall or injury The patient denies any other concerns Related Data Home Medications ?Medication ?Instructions ?Recorded ?Confirmed amitriptyline 25 mg tablet 25 mg PO BEDTIME 01/05/25 02/21/25 fluoxetine 40 mg capsule 40 mg PO DAILY 01/05/25 02/21/25 omeprazole 40 mg capsule,delayed 40 mg PO DAILY 01/05/25 02/21/25 release Previous Rx's ?Medication ?Instructions ?Recorded ertapenem 1 gram solution for 1 g IV DAILY 14 days 01/12/25 injection Allergies Allergy/AdvReac Type Severity Reaction Status Date / Time chlorhexidine Allergy Severe Hives Verified 02/21/25 09:50 Review of Systems ROS Status of ROS 10 or more systems reviewed and unremarkable except as noted in history and below PFSH PFSH Surgical History (Updated 01/05/25 @ 23:10 by Natalia Aranda) History of ?Z98.891 - History of uterine scar from previous surgery (ICD-10) Family History (Updated 01/05/25 @ 23:11 by Natalia Aranda) Other Family history of CHF (congestive heart failure) Family history of COPD (chronic obstructive pulmonary disease) Family history of hypertension Family history of myocardial infarction Social History (Updated 01/05/25 @ 23:12 by Natalia Aranda) Within the past year, how often did you have a drink containing alcohol: never Score interpretation: A score less than 3 is consistent with normal alcohol consumption. 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 Are you now , , , , never or living with a partner: In a typical week, how many times do you talk on the telephone with family, friends, or neighbors: 3 or more times per week How often do you get together with friends or relatives: 3 or more times per week Little interest or pleasure in doing things: not at all Feeling down, depressed, or hopeless: not at all Feel stressed/tense/nervous/anxious/difficulty sleeping: not at all Do you think of yourself as: straight/heterosexual Gender Identity: female Exam Narrative Exam Narrative: Nurses notes and vital signs reviewed and patient is not hypoxic. General: Well-appearing and in no apparent distress. Skin: Warm, dry, no pallor noted. No rash. Head: Normocephalic, atraumatic. Neck: Supple, non-tender. Eye: Pupils are equal, round and EOMI. No scleral icterus. Cardiovascular: Regular Rate and Rhythm without murmur, gallop or rub. Respiratory: No accessory muscle use or respiratory distress. Lungs are clear to auscultation, no wheezing, rales or rhonchi Chest Wall: no tenderness Back: No midline thoracic or lumbar vertebral tenderness. No CVA tenderness Musculoskeletal: normal ROM, no calf or popliteal tenderness, the patient have a chronic changes to his lower extremities but the left side there is obvious redness from the ankle up to the knee with some extension medially on the thigh. It is warm and red and there is multiple skin lesions that look more of a contact dermatitis or papular rash that is healing in the anterior left lower extremity The patient have a good palpable anterior tibial pulse and she has normal capillary refill in the toes with normal range of movement in the ankle and knee, both does not show any sign of infection in the joint GI: Abdomen is soft, non-distended. Normal bowel sounds. No masses appreciated. No tenderness to palpation. No rebound, guarding, or rigidity noted. Neurological: A&O x4. No cranial nerve dysfunction observed. No truncal ataxia. Constitutional Vital Signs, click to edit/add: Last Vital Signs Temp 99.2 F 02/21/25 11:32 Pulse 116 H 02/21/25 11:32 Resp 20 02/21/25 11:32 BP 124/79 02/21/25 09:51 Pulse Ox 96 02/21/25 11:32 O2 Del Method Room Air 02/21/25 09:51 Course Vital Signs Vital signs: Vital Signs Temperature 99.0 F 02/21/25 09:51 Pulse Rate 126 H 02/21/25 09:51 Respiratory Rate 22 H 02/21/25 09:51 Blood Pressure 124/79 02/21/25 09:51 Pulse Oximetry 97 02/21/25 09:51 Oxygen Delivery Method Room Air 02/21/25 09:51 Temperature 99.2 F 02/21/25 11:32 Pulse Rate 116 H 02/21/25 11:32 Respiratory Rate 20 02/21/25 11:32 Blood Pressure 124/79 02/21/25 09:51 Pulse Oximetry 96 02/21/25 11:32 Oxygen Delivery Method Room Air 02/21/25 09:51 MDM - Extremity (Nontraumatic) MDM Narrative Medical decision making narrative: The patient presenting to us with a source of infection and tachycardia initially was started with a possible sepsis starting with using the sepsis protocol The patient was blood cells elevated at 17.8 Lactic acid 2.1 the patient chemistry showing some mild hypokalemia of 3.4 and hyponatremia of 134 The patient x-ray of the left lower extremity showed that the patient had no acute pathology The patient was started initially on Vanco and Zosyn and she will start initial IV fluid with 1 L initially but with the patient weight being 200 kg I was cautious with fluids good amount of fluid with her for sepsis will be above 6 L and right now with her lactic been only 2.1 and she was provided with 2 L IV fluid Patient case discussed with and he agreed with above-mentioned plan Lab Data Labs: Lab Results 02/21/25 Range/Units 10:05 WBC 17.8 H (4.0-11.0) 10^3/uL RBC 4.28 (4.20-5.40) 10^6/uL Hgb 11.4 L (12.0-16.0) g/dL Hct 35.0 L (36.0-48.0) % MCV 81.8 (81.0-99.0) fL MCH 26.6 L (26.7-34.0) pg MCHC 32.6 (29.9-35.2) g/dL RDW 17.6 H (11.0-15.0) % Plt Count 243 (150-450) 10^3/uL MPV 10.5 (9.5-13.5) fL Neut % (Auto) 91.5 H (43.0-75.0) % Lymph % (Auto) 4.7 L (20.5-60.0) % Colbert % (Auto) 3.2 (1.7-12.0) % Eos % (Auto) 0.0 L (0.9-7.0) % Baso % (Auto) 0.2 (0.2-2.0) % Neut # (Auto) 16.3 H (1.4-6.5) 10^3/uL Lymph # (Auto) 0.8 L (1.2-3.8) 10^3/uL [place]bert # (Auto) 0.6 (0.3-0.8) 10^3/uL Eos # (Auto) 0.0 (0.0-0.7) 10^3/uL Baso # (Auto) 0.0 (0.0-0.1) 10^3/uL Abs Immat Gran (auto) 0.08 H (0.00-0.03) 10^3/uL Imm/Tot Granulo (auto) 0.4 (0.0-0.5) % Sodium 134 L (136-145) mmol/L Potassium 3.4 L (3.5-5.1) mmol/L Chloride 101 (98-107) mmol/L Carbon Dioxide 24.8 (21.0-32.0) mmol/L Anion Gap 11.6 BUN 12.0 (7.0-18.0) mg/dL Creatinine 1.02 (0.55-1.02) mg/dL Est GFR ( Amer) >60 (>=60 mL/min/1.73m^2) Est GFR (Non-Af Amer) >60 (>=60 mL/min/1.73m^2) BUN/Creatinine Ratio 11.8 Glucose 120 H (74-106) mg/dL Estimat Average Glucose 103 mg/dL Hemoglobin A1c 5.2 (4.5-6.2) % Lactate 2.1 H* (0.4-2.0) mmol/L Calcium 8.3 L (8.5-10.1) mg/dL Total Bilirubin 0.7 (0.2-1.0) mg/dL AST 18 (15-37) U/L ALT 36 (14-59) U/L Alkaline Phosphatase 76 (46-116) U/L Total Protein 7.1 (6.4-8.2) g/dL Albumin 3.2 L (3.4-5.0) g/dL Globulin 3.9 g/dL Albumin/Globulin Ratio 0.8 Serum HCG, Qual Negative (NEGATIVE) Discharge Plan Discharge Chief Complaint: Extremity Problem, Nontraumatic Clinical Impression: Sepsis, Cellulitis of left leg Patient Disposition: Admitted As Inpatient Time of Disposition Decision: 12:16
[2025-02-21 10:47] LABS: Alanine Aminotransferase 36 U/L (14-59); Albumin Globulin Ratio 0.8; Albumin Level 3.2 g/dL (3.4-5.0); Alkaline Phosphatase 76 U/L (46-116); Anion Gap 11.6; Aspartate Amino Transferase 18 U/L (15-37); Blood Urea Nitrogen 12.0 mg/dL (7.0-18.0); Calcium 8.3 mg/dL (8.5-10.1); Carbon Dioxide 24.8 mmol/L (21.0-32.0); Chloride 101 mmol/L (98-107); Estimated GFR (African America >60 (>=60 mL/min/1.73m^2); Estimated GFR (Non-African Ame >60 (>=60 mL/min/1.73m^2); Globulin 3.9 g/dL; Glucose 120 mg/dL (74-106); Potassium 3.4 mmol/L (3.5-5.1); Sodium 134 mmol/L (136-145); Total Protein 7.1 g/dL (6.4-8.2)
[2025-02-21 11:03] LABS: Lactate/Lactic Acid 2.1 mmol/L (0.4-2.0)
--- NOTE | 2025-02-21 12:17 | PM.HP ---
HPI H&P: HPI History of Present Illness Chief complaint: LOWER EXTREMITY PAIN/SWELLING Narrative: Mrs Zee is a 39-year-old female who came to the emergency room with 1 day history of progressive pain, swelling and redness involving the left leg from the knee down to the ankle. I admitted this patient 2 months ago with extensive left leg cellulitis. Patient stayed in hospital for at least 10 days and was discharged on intravenous antibiotic. She has been following up with infectious disease specialist Dr. Florence. She saw him on 02/16 according to her and he told her everything is fine after completion of her antibiotic. Patient reported having fever, headaches nausea but no vomiting. Opioid HPI Opioid Management Most Recent Pain and Opioid Data: Last Pain Scale 3 Today, 09:51 Last ORT Total Score 1 01/05/25, 23:13 Last ORT Risk Category Low Risk 01/05/25, 23:13 Review of Systems ROS Status of ROS 10 or more systems reviewed and unremarkable except as noted in history and below PFSH PFS Surgical History (Updated 01/05/25 @ 23:10 by Natalia Aranda) History of ?Z98.891 - History of uterine scar from previous surgery (ICD-10) Family History (Updated 01/05/25 @ 23:11 by Natalia Aranda) Other Family history of CHF (congestive heart failure) Family history of COPD (chronic obstructive pulmonary disease) Family history of hypertension Family history of myocardial infarction Social History (Updated 01/05/25 @ 23:12 by Natalia Aranda) Within the past year, how often did you have a drink containing alcohol: never Score interpretation: A score less than 3 is consistent with normal alcohol consumption. 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 Are you now , , , , never or living with a partner: In a typical week, how many times do you talk on the telephone with family, friends, or neighbors: 3 or more times per week How often do you get together with friends or relatives: 3 or more times per week Little interest or pleasure in doing things: not at all Feeling down, depressed, or hopeless: not at all Feel stressed/tense/nervous/anxious/difficulty sleeping: not at all Do you think of yourself as: straight/heterosexual Gender Identity: female Meds Home Medications and Allergies Home Medications ?Medication ?Instructions ?Recorded ?Confirmed ?Type amitriptyline 25 mg tablet 25 mg PO BEDTIME 01/05/25 02/21/25 History fluoxetine 40 mg capsule 40 mg PO DAILY 01/05/25 02/21/25 History omeprazole 40 mg capsule,delayed 40 mg PO DAILY 01/05/25 02/21/25 History release ertapenem 1 gram solution for 1 g IV DAILY 14 days 01/12/25 Rx injection Allergies Allergy/AdvReac Type Severity Reaction Status Date / Time chlorhexidine Allergy Severe Hives Verified 02/21/25 09:50 Exam Narrative Exam Narrative: [pt is awake and alert. oriented to place, time and person, morbidly obese HEENT: [place] conjunctiva and NL buccal mucosa Neck: Supple, no tenderness Endocrine: No Thyromegaly. Vascular: No JVD or carotid bruit. Lymphatic: No cervical lymphadenopathy. Chest: CTA no DTP. Heart RRR, no extra sound or murmur. Abd: Soft, no tenderness, no rebound and no rigidity. Increase abd girth therefore clinically I could not exclude the possibility of intra abd mass or organomegaly. LE: Quite extensive erythema, induration and tenderness involving the left leg from the knee down to the ankle anteriorly, medially, laterally and superiorly. Able to palpate dorsalis pedis pulse Neuro: A A O. Nl speech, comprehension and attention. Nl and symetrical motor and tone examination through out. []] Constitutional Vital Signs, click to edit/add: Last Vital Signs Temp 99.2 F 02/21/25 11:32 Pulse 116 H 02/21/25 11:32 Resp 20 02/21/25 11:32 BP 124/79 02/21/25 09:51 Pulse Ox 96 02/21/25 11:32 O2 Del Method Room Air 02/21/25 09:51 Results Labs Labs: Short CBC 02/21/25 Range/Units 10:05 WBC 17.8 H (4.0-11.0) 10^3/uL Hgb 11.4 L (12.0-16.0) g/dL Hct 35.0 L (36.0-48.0) % Plt Count 243 (150-450) 10^3/uL BMP 02/21/25 10:05 Sodium 134 L Potassium 3.4 L Chloride 101 Carbon Dioxide 24.8 BUN 12.0 Creatinine 1.02 Glucose 120 H Calcium 8.3 L Liver Function 02/21/25 Range/Units 10:05 Total Bilirubin 0.7 (0.2-1.0) mg/dL AST 18 (15-37) U/L ALT 36 (14-59) U/L Alkaline Phosphatase 76 (46-116) U/L Albumin 3.2 L (3.4-5.0) g/dL Assessment and Plan Assessment and Plan (1) Cellulitis of left leg: (2) Sepsis: Plan Sepsis present on admission Left leg cellulitis, recurrent Last admission patient had extensive left leg cellulitis requiring inpatient IV antibiotic and postdischarge IV antibiotic treatment. As per patient she followed up with Dr. Florence. She saw him on 02/16 and her leg looked back to normal with exception of small area of hyperpigmentation. I had accepted to readmit patient back to the hospital due to the severity of her presentation Sepsis protocol including antibiotic, lactic and IV fluid infusion. Intravenous vancomycin and ceftriaxone to cover MRSA and a negative I do not believe that she has anaerobic infection Palpable dorsalis pedis pulse. No evidence of compartment syndrome clinically. Thus far. No clinical evidence of abscess formation DVT prophylaxis with Lovenox 60 mg twice a day due to her weight. Monitor white count, hemodynamics Monitor lactic acid I discussed her case with her at the bedside.
[2025-02-21] MEDS: ACETAMINOPHEN 325 MG TABLET 650 MG PO ×2 (12:36→23:54)
[2025-02-21] MEDS: PIPERACILLIN SODIUM/TAZOBACTAM 4.5 GM in 0.9 % SODIUM CHLORIDE 50 ML IV (12:36)
[2025-02-21 13:48] LABS: Lactate/Lactic Acid 0.7 mmol/L (0.4-2.0)
[2025-02-21] MEDS: OXYCODONE HCL 5 MG TABLET PO ×2 (14:01→18:03)
[2025-02-21] MEDS: FLU VACC TS2025-26(6MOS UP)/PF FLULAVAL 45 MCG/0.5 ML SYRINGE IM (14:38)
[2025-02-21 16:54] LABS: Lactate/Lactic Acid 0.9 mmol/L (0.4-2.0)
[2025-02-21] MEDS: ENOXAPARIN SODIUM 60 MG/0.6 ML SYRINGE SUBQ (21:10)
[2025-02-21] MEDS: AMITRIPTYLINE HCL 25 MG TABLET PO (21:10)
[2025-02-21] MEDS: VANCOMYCIN HCL 2,000 MG in 0.9 % SODIUM CHLORIDE 500 ML 250 MG IV (21:10)
[2025-02-21] MEDS: HYDROMORPHONE HCL 0.5 MG/0.5 ML SYRINGE IVP (23:55)
[2025-02-22] VITALS (18 sets, daily range): BP systolic 108–123; BP diastolic 68–82; PULSE 85–102; TEMP 36.7–37.4; O2SAT 91–96
[2025-02-22 05:45] LABS: Hematocrit 32.8 % (36.0-48.0); Hemoglobin 10.4 g/dL (12.0-16.0); Immature Granulocytes Abs Auto 0.04 10^3/uL (0.00-0.03); Immature Granulocytes Pct Auto 0.4 % (0.0-0.5); Lymphocytes Absolute Auto 1.7 10^3/uL (1.2-3.8); Mean Corpuscular HGB Conc 31.7 g/dL (29.9-35.2); Mean Corpuscular Hemoglobin 26.9 pg (26.7-34.0); Mean Corpuscular Volume 85.0 fL (81.0-99.0); Platelet Count 210 10^3/uL (150-450); Red Blood Count 3.86 10^6/uL (4.20-5.40); White Blood Count 11.3 10^3/uL (4.0-11.0)
[2025-02-22] MEDS: PANTOPRAZOLE SODIUM 40 MG TABLET.DR PO (05:51)
[2025-02-22 06:04] LABS: Alanine Aminotransferase 26 U/L (14-59); Albumin Globulin Ratio 0.7; Albumin Level 2.6 g/dL (3.4-5.0); Alkaline Phosphatase 76 U/L (46-116); Anion Gap 10.8; Aspartate Amino Transferase 17 U/L (15-37); Blood Urea Nitrogen 11.0 mg/dL (7.0-18.0); Calcium 7.8 mg/dL (8.5-10.1); Carbon Dioxide 26.6 mmol/L (21.0-32.0); Chloride 104 mmol/L (98-107); Estimated GFR (African America >60 (>=60 mL/min/1.73m^2); Estimated GFR (Non-African Ame >60 (>=60 mL/min/1.73m^2); Globulin 3.9 g/dL; Glucose 90 mg/dL (74-106); Potassium 3.4 mmol/L (3.5-5.1); Sodium 138 mmol/L (136-145); Total Protein 6.5 g/dL (6.4-8.2)
[2025-02-22 06:09] LABS: Lactate/Lactic Acid 0.7 mmol/L (0.4-2.0)
--- NOTE | 2025-02-22 08:35 | CM.NOTE ---
Rounds made with Dr. Banks, discussed with pt plan of care. Pt is inpatient status for cellulitis. Pt does follow with Dr. Florence. Continue IV antibiotics.
[2025-02-22] MEDS: ENOXAPARIN SODIUM 60 MG/0.6 ML SYRINGE SUBQ ×2 (08:56→20:16)
[2025-02-22] MEDS: VANCOMYCIN HCL 2,000 MG in 0.9 % SODIUM CHLORIDE 500 ML 250 MG IV ×2 (08:56→20:16)
[2025-02-22] MEDS: FLUOXETINE HCL 20 MG CAPSULE 40 MG PO (08:56)
[2025-02-22] MEDS: 0.9 % SODIUM CHLORIDE 250 ML 10 ML IV (08:57)
[2025-02-22] MEDS: ACETAMINOPHEN 325 MG TABLET 650 MG PO (09:12)
--- NOTE | 2025-02-22 10:26 | PM.PN ---
Progress Note: Subjective Subjective Interval history: Following up on the patient. Persistent pain and discomfort in the left leg. Exam Narrative Exam Narrative: [pt is awake and alert. oriented to place, time and person, morbidly obese HEENT: [place] conjunctiva and NL buccal mucosa Neck: Supple, no tenderness Endocrine: No Thyromegaly. Vascular: No JVD or carotid bruit. Lymphatic: No cervical lymphadenopathy. Chest: CTA no DTP. Heart RRR, no extra sound or murmur. Abd: Soft, no tenderness, no rebound and no rigidity. Increase abd girth therefore clinically I could not exclude the possibility of intra abd mass or organomegaly. LE: Quite extensive erythema, induration and tenderness involving the left leg from the knee down to the ankle anteriorly, medially, laterally and superiorly. Able to palpate dorsalis pedis pulse Neuro: A A O. Nl speech, comprehension and attention. Nl and symetrical motor and tone examination through out. []] Constitutional Vital Signs, click to edit/add: Last Vital Signs Temp 98.5 F 02/22/25 07:37 Pulse 94 H 02/22/25 10:00 Resp 18 02/22/25 03:35 BP 113/80 02/22/25 07:37 Pulse Ox 94 L 02/22/25 07:37 O2 Del Method Room Air 02/22/25 07:37 Progress Note: Objective Labs Labs: Short CBC 02/21/25 02/22/25 Range/Units 10:05 05:35 WBC 17.8 H 11.3 H (4.0-11.0) 10^3/uL Hgb 11.4 L 10.4 L (12.0-16.0) g/dL Hct 35.0 L 32.8 L (36.0-48.0) % Plt Count 243 210 (150-450) 10^3/uL BMP 02/21/25 02/22/25 10:05 05:35 Sodium 134 L 138 Potassium 3.4 L 3.4 L Chloride 101 104 Carbon Dioxide 24.8 26.6 BUN 12.0 11.0 Creatinine 1.02 0.97 Glucose 120 H 90 Calcium 8.3 L 7.8 L Liver Function 02/21/25 02/22/25 Range/Units 10:05 05:35 Total Bilirubin 0.7 0.4 (0.2-1.0) mg/dL AST 18 17 (15-37) U/L ALT 36 26 (14-59) U/L Alkaline Phosphatase 76 76 (46-116) U/L Albumin 3.2 L 2.6 L (3.4-5.0) g/dL Progress Note: A&P Assessment and Plan (1) Cellulitis of left leg: (2) Sepsis: (3) Sepsis: (4) SALLY (acute kidney injury): (5) Hypokalemia: Plan Sepsis present on admission manifested by tachycardia, fever, leukocytosis. Extensive left leg cellulitis from the knee down to the foot, anteriorly, medially, laterally and posteriorly. Started develop bullous formation, same as last admission. Sepsis parameter had improved. Lactic is low. WBC is trending down. Tachycardia is improving Continue vancomycin and ceftriaxone Continue pain management. Check CRP. DVT prophylaxis Lovenox 60 mg twice a day due to BMI above 60. Hypokalemia Potassium supplementation. Anemia, no evidence of acute blood loss. Patient will likely require to have anemia workup to be done in the outpatient setting to be handled by PCP in collaboration with other needed outpatient providers. This may include but not limited to [facility], EGD, colonoscopy, referral to see hematology and other needed age-appropriate cancer screening.
[2025-02-22] MEDS: POTASSIUM CHLORIDE 10 MEQ ER TABLET 20 MEQ PO ×2 (11:11→20:16)
[2025-02-22] MEDS: HYDROMORPHONE HCL 0.5 MG/0.5 ML SYRINGE IVP ×2 (11:11→20:23)
[2025-02-22] MEDS: OXYCODONE HCL 5 MG TABLET PO (14:33)
[2025-02-22] MEDS: AMITRIPTYLINE HCL 25 MG TABLET PO (21:09)
[2025-02-23] VITALS (17 sets, daily range): BP systolic 104–124; BP diastolic 68–89; PULSE 75–101; TEMP 36.6–37.2; O2SAT 92–97
[2025-02-23] MEDS: PANTOPRAZOLE SODIUM 40 MG TABLET.DR PO (05:49)
--- NOTE | 2025-02-23 08:00 | CM.NOTE ---
Rounds made with Dr. Banks, discussed with pt plan of care. PICC line ordered, discussed with RN and Bailey Frank line not to be placed unless blood cultures are negative. No discharge today.
--- NOTE | 2025-02-23 08:45 | P.PN_ITS ---
Progress Note: Subjective Subjective Interval history: Following up on the patient. Persistent pain and discomfort in the left leg. Patient stated that the leg feels less intense than before. Exam Narrative Exam Narrative: [pt is awake and alert. oriented to place, time and person, morbidly obese HEENT: [place] conjunctiva and NL buccal mucosa Neck: Supple, no tenderness Endocrine: No Thyromegaly. Vascular: No JVD or carotid bruit. Lymphatic: No cervical lymphadenopathy. Chest: CTA no DTP. Heart RRR, no extra sound or murmur. Abd: Soft, no tenderness, no rebound and no rigidity. Increase abd girth therefore clinically I could not exclude the possibility of intra abd mass or organomegaly. LE: Quite extensive erythema, induration and tenderness involving the left leg from the knee down to the ankle anteriorly, medially, laterally and superiorly. Able to palpate dorsalis pedis pulse 02/23: Subtle resolution of the erythema compared to yesterday. Neuro: A A O. Nl speech, comprehension and attention. Nl and symetrical motor and tone examination through out. []] Constitutional Vital Signs, click to edit/add: Last Vital Signs Temp 98.2 F 02/23/25 07:35 Pulse 86 02/23/25 07:58 Resp 16 02/23/25 07:35 BP 112/83 02/23/25 07:35 Pulse Ox 95 02/23/25 07:35 O2 Del Method Room Air 02/23/25 07:35 Progress Note: A&P Assessment and Plan (1) Cellulitis of left leg: (2) Sepsis: (3) SALLY (acute kidney injury): (4) Hypokalemia: (5) Sepsis: Plan Sepsis present on admission manifested by tachycardia, fever, leukocytosis. Extensive left leg cellulitis from the knee down to the foot, anteriorly, medially, laterally and posteriorly. Started develop bullous formation, same as last admission. Sepsis parameter had improved. Lactic is low. WBC is trending down. Tachycardia is improving Continue vancomycin and ceftriaxone The wound now is seeping. Requested wound culture Continue pain management. Trend CRP. Trend WBC likely patient will require extended IV antibiotic treatment will likely insert PICC or midline once her blood culture comes back negative. DVT prophylaxis Lovenox 60 mg twice a day due to BMI above 60. Hypokalemia Potassium supplementation. Anemia, no evidence of acute blood loss. Patient will likely require to have anemia workup to be done in the outpatient setting to be handled by PCP in collaboration with other needed outpatient providers. This may include but not limited to [facility], EGD, colonoscopy, referral to see he matology and other needed age-appropriate cancer screening.
[2025-02-23] MEDS: FLUOXETINE HCL 20 MG CAPSULE 40 MG PO (08:52)
[2025-02-23] MEDS: ENOXAPARIN SODIUM 60 MG/0.6 ML SYRINGE SUBQ ×2 (08:52→21:06)
[2025-02-23] MEDS: VANCOMYCIN HCL 2,000 MG in 0.9 % SODIUM CHLORIDE 500 ML 250 MG IV ×2 (08:53→19:45)
[2025-02-23] MEDS: HYDROMORPHONE HCL 0.5 MG/0.5 ML SYRINGE IVP (13:53)
[2025-02-23] MEDS: AMITRIPTYLINE HCL 25 MG TABLET PO (21:06)
[2025-02-24] VITALS (10 sets, daily range): BP systolic 116–139; BP diastolic 72–96; PULSE 70–105; TEMP 36.3–37; O2SAT 90–96
[2025-02-24] MEDS: PANTOPRAZOLE SODIUM 40 MG TABLET.DR PO (05:42)
[2025-02-24 05:58] LABS: Hematocrit 32.9 % (36.0-48.0); Hemoglobin 10.3 g/dL (12.0-16.0); Mean Corpuscular HGB Conc 31.3 g/dL (29.9-35.2); Mean Corpuscular Hemoglobin 26.1 pg (26.7-34.0); Mean Corpuscular Volume 83.5 fL (81.0-99.0); Platelet Count 258 10^3/uL (150-450); Red Blood Count 3.94 10^6/uL (4.20-5.40); White Blood Count 6.9 10^3/uL (4.0-11.0)
[2025-02-24 06:15] LABS: Anion Gap 12.4; Blood Urea Nitrogen 6.0 mg/dL (7.0-18.0); Calcium 8.3 mg/dL (8.5-10.1); Carbon Dioxide 25.9 mmol/L (21.0-32.0); Chloride 108 mmol/L (98-107); Estimated GFR (African America >60 (>=60 mL/min/1.73m^2); Estimated GFR (Non-African Ame >60 (>=60 mL/min/1.73m^2); Glucose 99 mg/dL (74-106); Potassium 3.3 mmol/L (3.5-5.1); Sodium 143 mmol/L (136-145)
[2025-02-24] MEDS: ENOXAPARIN SODIUM 60 MG/0.6 ML SYRINGE SUBQ ×2 (08:13→21:58)
[2025-02-24] MEDS: FLUOXETINE HCL 20 MG CAPSULE 40 MG PO (08:14)
[2025-02-24] MEDS: VANCOMYCIN HCL 2,000 MG in 0.9 % SODIUM CHLORIDE 500 ML 250 MG IV (08:14)
--- NOTE | 2025-02-24 08:50 | CM.NOTE ---
Rounds made with Dr. Banks, discussed with pt plan of care. Pt anxious for discharge to home, Dr. Banks will discuss discharge plan with Dr. Florence.
--- NOTE | 2025-02-24 09:30 | CM.NOTE ---
Spoke with Neftali Lantigua to cancel PICC line placement, Dr. Banks will discuss oral medications with Dr. Florence.
[2025-02-24] MEDS: POTASSIUM CHLORIDE 10 MEQ ER TABLET 40 MEQ PO (09:31)
--- NOTE | 2025-02-24 10:10 | PC.NURSE ---
10:10 Telemetry discontinued by tech
--- NOTE | 2025-02-24 10:41 | P.PN_ITS ---
Progress Note: Subjective Subjective Interval history: Following up on the patient. Noticeable improvement of the leg erythema, induration and tenderness. Exam Narrative Exam Narrative: [pt is awake and alert. oriented to place, time and person, morbidly obese HEENT: [place] conjunctiva and NL buccal mucosa Neck: Supple, no tenderness Endocrine: No Thyromegaly. Vascular: No JVD or carotid bruit. Lymphatic: No cervical lymphadenopathy. Chest: CTA no DTP. Heart RRR, no extra sound or murmur. Abd: Soft, no tenderness, no rebound and no rigidity. Increase abd girth therefore clinically I could not exclude the possibility of intra abd mass or organomegaly. LE: Quite extensive erythema, induration and tenderness involving the left leg from the knee down to the ankle anteriorly, medially, laterally and superiorly. Able to palpate dorsalis pedis pulse 02/23: Subtle resolution of the erythema compared to yesterday. 02/24: Noticeable improvement of erythema, induration and tenderness. Continue with seepage. Neuro: A A O. Nl speech, comprehension and attention. Nl and symetrical motor and tone examination through out. []] Constitutional Vital Signs, click to edit/add: Last Vital Signs Temp 97.7 F 02/24/25 07:49 Pulse 90 02/24/25 09:13 Resp 18 02/24/25 07:49 BP 123/82 02/24/25 07:49 Pulse Ox 93 L 02/24/25 07:49 O2 Del Method Room Air 02/24/25 07:49 Progress Note: Objective Labs Labs: Short CBC 02/24/25 Range/Units 05:36 WBC 6.9 (4.0-11.0) 10^3/uL Hgb 10.3 L (12.0-16.0) g/dL Hct 32.9 L (36.0-48.0) % Plt Count 258 (150-450) 10^3/uL BMP 02/24/25 05:36 Sodium 143 Potassium 3.3 L Chloride 108 H Carbon Dioxide 25.9 BUN 6.0 L Creatinine 0.82 Glucose 99 Calcium 8.3 L Progress Note: A&P Assessment and Plan (1) Cellulitis of left leg: (2) Sepsis: (3) SALLY (acute kidney injury): (4) Hypokalemia: (5) Sepsis: Plan Sepsis present on admission manifested by tachycardia, fever, leukocytosis. Resolved. White count is down, CRP is down from 28 to 10 Tachycardia, temperature, headache, generalized body ache and fatigue, resolved. Extensive left leg cellulitis from the knee down to the foot, anteriorly, medially, laterally and posteriorly. Started develop bullous formation, same as last admission. Sepsis parameter had improved. Lactic is low. WBC is trending down. Tachycardia is improving Continue vancomycin and ceftriaxone The wound now is seeping. Requested wound culture Continue pain management. I called and discussed her case with Dr. Florence who took care of her in the outpatient setting postdischarge from last admission Given the improvement of her temperature, white count and CRP Given the improvement of her cellulitis over the last 48 hours he recommended to discharge her on Zyvox 600 mg twice a day. No IV antibiotic. She will see him within a week or 2 and discuss this further Because of linezolid interaction with psych medication. These medications will be placed on hold DVT prophylaxis Lovenox 60 mg twice a day due to BMI above 60. Hypokalemia Additional potassium supplementation. Anemia, no evidence of acute blood loss. Patient will likely require to have anemia workup to be done in the outpatient setting to be handled by PCP in collaboration with other needed outpatient pr oviders. 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
--- NOTE | 2025-02-24 11:01 | CM.NOTE ---
Spoke with Dr. Banks, pt will discharge on Linezolid. Script sent to pharmacy. CM will call to see if medication will require precert.
--- NOTE | 2025-02-24 11:25 | CM.NOTE ---
Called [facility] pharmacy to confirm Zyvox would not need precert. Medication was approved and [facility] are able to fill. Updated Dr. Banks and pt.
[2025-02-24] MEDS: LINEZOLID 600 MG TABLET PO (14:32)
[2025-02-24] MEDS: ERTAPENEM SODIUM 1 GM, LIDOCAINE HCL/PF 3.2 ML IM (16:51)
[2025-02-25] MEDS: LINEZOLID 600 MG TABLET PO (01:18)
[2025-02-25 03:20] VITALS: BP 131/90; PULSE 84; TEMP 36.8; O2SAT 94
[2025-02-25 06:37] LABS: Anion Gap 11.3; Blood Urea Nitrogen 4.0 mg/dL (7.0-18.0); Calcium 8.4 mg/dL (8.5-10.1); Carbon Dioxide 27.9 mmol/L (21.0-32.0); Chloride 106 mmol/L (98-107); Estimated GFR (African America >60 (>=60 mL/min/1.73m^2); Estimated GFR (Non-African Ame >60 (>=60 mL/min/1.73m^2); Glucose 99 mg/dL (74-106); Potassium 3.2 mmol/L (3.5-5.1); Sodium 142 mmol/L (136-145)
[2025-02-25] MEDS: PANTOPRAZOLE SODIUM 40 MG TABLET.DR PO (06:39)
[2025-02-25 08:00] VITALS: BP 133/84; PULSE 85; TEMP 36.6; O2SAT 92
--- NOTE | 2025-02-25 08:30 | CM.NOTE ---
Rounds made with Dr. Banks, discussed with pt discharge to home. Pt will f/u with Dr. Florence and PCP. Pt will discharge on oral antibiotic. Pt will receive IM injection of antibiotic prior to discharge, updated RN
[2025-02-25] MEDS: ENOXAPARIN SODIUM 60 MG/0.6 ML SYRINGE SUBQ (09:04)
[2025-02-25] MEDS: POTASSIUM CHLORIDE 10 MEQ ER TABLET 60 MEQ PO (09:05)
--- NOTE | 2025-02-25 09:41 | P.DS_ITS ---
DS: Providers Provider Date of admission: 02/21/25 13:23 Primary care physician: ROSE WRAY DS: Diagnosis Discharge Diagnosis (1) Cellulitis of left leg: (2) Sepsis: (3) SALLY (acute kidney injury): (4) Hypokalemia: Plan As listed above, below and others that are not listed DS: Summary Hospital Course Hospital Course: Mrs Zee is a 39-year-old female who came to the emergency room with recurrent pain, swelling and redness involving the left leg. Sepsis present on admission manifested by tachycardia, fever, leukocytosis. Resolved Resolved. White count is down, CRP is down from 28 to 10 Tachycardia, temperature, headache, generalized body ache and fatigue, resolved. Extensive left leg cellulitis from the knee down to the foot, anteriorly, medially, laterally and posteriorly. Started develop bullous formation, same as last admission. Less redness, induration and tenderness compared to admission state. Sepsis parameter had improved. Lactic is low. WBC is trending down. Tachycardia is improving Continue vancomycin and ceftriaxone The wound now is seeping. Requested wound culture. Wound culture is pending. Continue pain management. I called and discussed her case with Dr. Florence who took care of her in the outpatient setting postdischarge from last admission Given the improvement of her temperature, white count and CRP Given the improvement of her cellulitis over the last 72 hours he recommended to discharge her on Zyvox 600 mg twice a day. No IV antibiotic. She will see him within a week or 2 and discuss this further Because of linezolid interaction with psych medication. These medications will be placed on hold. Dr. Florence stated that he would likely keep patient on suppressive antibiotic treatment for a long time given her recurrent left leg infection. DVT prophylaxis Lovenox 60 mg twice a day due to BMI above 60. Hypokalemia Additional potassium supplementation. Anemia, no evidence of acute blood loss. Patient will likely require to have anemia workup to be done in the outpatient setting to be handled by PCP in collaboration with other needed outpatient providers. 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 Patient has few medical issues as listed above and others that are not listed. All appear to be stable. Sepsis markers had improved. Patient is no longer febrile and tachycardic. White count is back to normal. CRP is trending down significantly. Resolution of erythema, induration and tenderness but not completely. Patient is eager to be discharged home. I discussed her case with Dr. Florence who recommended 2 weeks worth of oral linezolid. He did not recommend IV antibiotic. At this time, I do not have any clear or strong clinical justification to extend inpatient hospitalization against her will and desire to be discharged home and against Dr. Florence's recommendation. Patient however will require close and frequent monitoring as well as additional work-up, investigation and therapeutic intervention that could take place from this point on post discharge. That is to prevent relapse, decompensation, rehospitalization and other medical implications.. I instructed patient to ask her primary care doctor to obtain [facility] record entirely to address abnormalities seen on labs and imaging that I have and have not addressed during this hospitalization, follow-up on pending blood work, imaging and pathology is if available and to follow-up on needed medical care in the outpatient setting. Time Spent with Patient Time attestation: Total time spent providing and/or coordinating discharge services: Exam Narrative Exam Narrative: [pt is awake and alert. oriented to place, time and person, morbidly obese HEENT: [place] conjunctiva and NL buccal mucosa Neck: Supple, no tenderness Endocrine: No Thyromegaly. Vascular: No JVD or carotid bruit. Lymphatic: No cervical lymphadenopathy. Chest: CTA no DTP. Heart RRR, no extra sound or murmur. Abd: Soft, no tenderness, no rebound and no rigidity. Increase abd girth therefore clinically I could not exclude the possibility of intra abd mass or organomegaly. LE: Quite extensive erythema, induration and tenderness involving the left leg from the knee down to the ankle anteriorly, medially, laterally and superiorly. Able to palpate dorsalis pedis pulse 02/23: Subtle resolution of the erythema compared to yesterday. 02/24: Noticeable improvement of erythema, induration and tenderness. Continue with seepage. 02/25: Additional resolution of erythema, induration and tenderness Neuro: A A O. Nl speech, comprehension and attention. Nl and symetrical motor and tone examination through out. []] Constitutional Vital Signs, click to edit/add: Last Vital Signs Temp 97.9 F 02/25/25 08:00 Pulse 85 02/25/25 08:00 Resp 18 02/25/25 03:20 BP 133/84 02/25/25 08:00 Pulse Ox 92 L 02/25/25 08:00 O2 Del Method Room Air 02/25/25 08:00 DS: Data Data Completed and Pending Labs on day of discharge: Labs from last 24 hours 02/25/25 05:57 Sodium 142 Potassium 3.2 L Chloride 106 Carbon Dioxide 27.9 Anion Gap 11.3 BUN 4.0 L Creatinine 0.82 Est GFR ( Amer) >60 Est GFR (Non-Af Amer) >60 BUN/Creatinine Ratio 4.9 Glucose 99 Calcium 8.4 L Preliminary micro results at discharge 02/21/25 10:17 Blood Culture Result 2 - Preliminary Blood - Right Hand NO GROWTH AT 36-48 HOURS. FINAL TO FOLLOW. 02/21/25 10:05 Blood Culture Result 1 - Preliminary Blood - Left Hand NO GROWTH AT 36-48 HOURS. FINAL TO FOLLOW. Discharge Plan Discharge Disposition: Home, Self-Care Discharge Medications: New linezolid 600 mg tablet 600 mg PO BID 14 Days Qty: 28 0RF oxycodone 5 mg Tablet 5 mg PO Q4H PRN (Reason: Pain) Qty: 25 0RF potassium chloride 15 mEq tablet extended release 15 meq PO DAILY Qty: 30 0RF Continued omeprazole 40 mg capsule,delayed release(DR/EC) 40 mg PO DAILY Held fluoxetine 40 mg capsule 40 mg PO DAILY Hold Instructions: Resume on 03/14/25. Please do not resume until 2 to 3 days after you complete Zyvox/linezolid course amitriptyline 25 mg tablet 25 mg PO BEDTIME Hold Instructions: Resume on 03/14/25. Please do not resume this medicine until 2 to 3 days after you complete Zyvox/linezolid antibiotic course Print Language: Syriac Activity Restrictions/Additional Instructions: I may not have addressed or treated all of your medical illnesses or the abnormal blood work or imaging studies during this hospitalization. Please ask your primary care provider to obtain [facility] records entirely to follow up on all of the abnormal physical, laboratory, and imaging findings that I have not addressed. Please return back to the emergency room or seek medical attention if your symptoms worsen or return. Please report back to the emergency if you develop fever, chills, worsening pain, redness and swelling in the leg or not feeling well. Discharging you from [facility] does not mean that your medical care ends here and now. You may still need additional monitoring, work up, investigation, and treatment plan to be handled from this point on by out patient providers including your primary care provider and specialists. For any medication question, please contact your retail pharmacist or your primary care provider. Thank you. Forms: Portal Instructions Follow Up Appointments: ESTHER Dorado. 03/01 @ [facility] [phone] Dr. Florence (infectious disease) - [place]. 03/10 @ [facility] [phone]
--- NOTE | 2025-02-25 10:12 | CM.NOTE ---
CM completed discharge requisition for outpatient lab work starting 03/01, pt verbalizes understanding. Noted on order to fax results to PCP and Dr. Florence.
--- NOTE | 2025-02-25 10:42 | CM.NOTE ---
Faxed requisition to lab for outpatient lab work scheduled.
[2025-02-25] MEDS: ERTAPENEM SODIUM 1 GM, LIDOCAINE HCL/PF 3.2 ML IM (12:07)
--- NOTE | 2025-02-28 12:59 | CM.DCFOLLOWU ---
02/28- 1st attempt. No answer
--- NOTE | 2025-03-01 13:39 | CM.DCFOLLOWU ---
Person spoke with: Marie How are you feeling? Much better How is your pain? Improved Did you understand your discharge instructions? Yes Do you have any questions about your discharge instructions? Just how long for lab work, complete until f/u with Dr. Florence and then clarify with Dr. Florence if needs additional blood work Were you given any prescriptions at discharge? Yes Were you able to get your prescriptions filled? Yes, potassium awaiting for pharmacy to get in stock Do you understand how to take your medications as ordered? Yes Do you have any questions about your follow up appointment and do you plan to keep your follow up appointment? No scheduled, pt went to [facility] today and will see Dr. Florence when scheduled Is there anything else that you would like to discuss? No Questions/Comments/Concerns/Other:
== END 2025-02-25 12:45 | disposition home or self-care (01) | DRG 872 ==
LOC: ER 12:41 → MS 13:25
PROVIDERS: Admitting Provider Internal Medicine; Emergency Provider Emergency Medicine; PCP Nurse Practitioner Family; Visit Provider Internal Medicine
DX: A41.9 Sepsis, unspecified organism (principal); L03.116 Cellulitis of left lower limb; N17.9 Acute kidney failure, unspecified; Z68.45 Body mass index [BMI] 70 or greater, adult; E66.01 Morbid (severe) obesity due to excess calories; F17.290 Nicotine dependence, other tobacco product, uncomplicated; E87.6 Hypokalemia; D64.9 Anemia, unspecified; B95.61 Methicillin susceptible Staphylococcus aureus infection as the cause of diseases classified elsewhere
CPT/HCPCS: 36415; 73590; 80048; 80053; 80202; 83036; 83605; 84703; 85025; 85027; 86140; 87040; 87070; 87075; 87077; 87186; 93971; 96365; 96366; 96368; 96375; 99285; 99406; J0696; J1171; J1335; J1650; J2405; J2543; J3373

== ENCOUNTER 2025-03-01 10:29 | Outpatient (RCR) | payer BC, SELFPAY ==
[2025-03-01 10:59] LABS: Hematocrit 36.4 % (36.0-48.0); Hemoglobin 11.5 g/dL (12.0-16.0); Mean Corpuscular HGB Conc 31.6 g/dL (29.9-35.2); Mean Corpuscular Hemoglobin 26.0 pg (26.7-34.0); Mean Corpuscular Volume 82.4 fL (81.0-99.0); Platelet Count 301 10^3/uL (150-450); Red Blood Count 4.42 10^6/uL (4.20-5.40); White Blood Count 8.0 10^3/uL (4.0-11.0)
[2025-03-01 11:20] LABS: Anion Gap 10.4; Blood Urea Nitrogen 6.0 mg/dL (7.0-18.0); Calcium 8.8 mg/dL (8.5-10.1); Carbon Dioxide 29.2 mmol/L (21.0-32.0); Chloride 104 mmol/L (98-107); Estimated GFR (African America >60 (>=60 mL/min/1.73m^2); Estimated GFR (Non-African Ame >60 (>=60 mL/min/1.73m^2); Glucose 100 mg/dL (74-106); Potassium 3.6 mmol/L (3.5-5.1); Sodium 140 mmol/L (136-145)
[2025-03-01 12:49] LABS: Band Neutrophils Absolute 0.2 10^3/uL (0.0-0.3); Basophils Abs Manual 0.00 10^3/uL (0.00-0.10); Basophils Percent Manual 0.0 % (0.2-2.0); Eosinophils Absolute Manual 0.16 10^3/uL (0.00-0.70); Eosinophils Percent Manual 2.0 % (0.9-7.0); Lymphocytes Absolute Manual 2.16 10^3/uL (1.20-3.80); Lymphocytes Percent Manual 27.0 % (20.5-60.0); Metamyelocytes Absolute Manual 0.08; Monocytes Absolute Manual 0.48 10^3/uL (0.30-0.80); Monocytes Percent Manual 6.0 % (1.7-12.0); Segmented Neut Absolute Manual 4.96 10^3/uL (1.4-6.5); Segmented Neutrophils % Manual 62.0 (43.0-75.0)
[2025-03-15 14:57] LABS: Anion Gap 13.4; Blood Urea Nitrogen 8.0 mg/dL (7.0-18.0); Calcium 9.0 mg/dL (8.5-10.1); Carbon Dioxide 28.3 mmol/L (21.0-32.0); Chloride 101 mmol/L (98-107); Estimated GFR (African America >60 (>=60 mL/min/1.73m^2); Estimated GFR (Non-African Ame >60 (>=60 mL/min/1.73m^2); Glucose 104 mg/dL (74-106); Potassium 3.7 mmol/L (3.5-5.1); Sodium 139 mmol/L (136-145)
[2025-03-15 15:05] LABS: Hematocrit 37.0 % (36.0-48.0); Hemoglobin 11.9 g/dL (12.0-16.0); Immature Granulocytes Abs Auto 0.02 10^3/uL (0.00-0.03); Immature Granulocytes Pct Auto 0.3 % (0.0-0.5); Lymphocytes Absolute Auto 1.8 10^3/uL (1.2-3.8); Mean Corpuscular HGB Conc 32.2 g/dL (29.9-35.2); Mean Corpuscular Hemoglobin 26.9 pg (26.7-34.0); Mean Corpuscular Volume 83.7 fL (81.0-99.0); Platelet Count 245 10^3/uL (150-450); Red Blood Count 4.42 10^6/uL (4.20-5.40); White Blood Count 6.2 10^3/uL (4.0-11.0)
== END 2025-03-21 08:28 | disposition home or self-care (01) ==
LOC: LAB 10:29
PROVIDERS: PCP Nurse Practitioner Family; Visit Provider Internal Medicine
DX: L03.90 Cellulitis, unspecified (principal); Z51.81 Encounter for therapeutic drug level monitoring
CPT/HCPCS: 36415; 80048; 85007; 85025; 85027; 86140

== ENCOUNTER 2025-03-08 12:47 | Outpatient (OUT) | payer BC, SELFPAY ==
[2025-03-08 13:30] LABS: Anion Gap 12.9; Blood Urea Nitrogen 9.0 mg/dL (7.0-18.0); Calcium 9.0 mg/dL (8.5-10.1); Carbon Dioxide 26.9 mmol/L (21.0-32.0); Chloride 105 mmol/L (98-107); Estimated GFR (African America >60 (>=60 mL/min/1.73m^2); Estimated GFR (Non-African Ame >60 (>=60 mL/min/1.73m^2); Glucose 110 mg/dL (74-106); Potassium 3.8 mmol/L (3.5-5.1); Sodium 141 mmol/L (136-145)
[2025-03-08 13:39] LABS: Hematocrit 35.8 % (36.0-48.0); Hemoglobin 11.5 g/dL (12.0-16.0); Immature Granulocytes Abs Auto 0.02 10^3/uL (0.00-0.03); Immature Granulocytes Pct Auto 0.3 % (0.0-0.5); Lymphocytes Absolute Auto 1.9 10^3/uL (1.2-3.8); Mean Corpuscular HGB Conc 32.1 g/dL (29.9-35.2); Mean Corpuscular Hemoglobin 26.7 pg (26.7-34.0); Mean Corpuscular Volume 83.3 fL (81.0-99.0); Platelet Count 250 10^3/uL (150-450); Red Blood Count 4.30 10^6/uL (4.20-5.40); White Blood Count 6.5 10^3/uL (4.0-11.0)
== END 2025-03-08 12:48 | disposition home or self-care (01) ==
LOC: LAB 12:51
PROVIDERS: PCP Nurse Practitioner Family; Visit Provider Internal Medicine
DX: L03.90 Cellulitis, unspecified (principal)
CPT/HCPCS: 36415; 80048; 85025; 86140

== ENCOUNTER 2025-03-22 13:27 | Outpatient (OUT) | payer BC, SELFPAY ==
--- OUTSIDE RECORDS SUMMARY | 2025-03-10 09:14 | XMS_ITS | Continuity of Care Document ---
Author Organization [facility] Address [address] [place] [address] Phone Care Team Providers Care General Merchandise Manager Name Role Phone Cheyanne Timmons NP-C Primary Care Provider Riley Florence MD Attending Provider [phone] Care Teams Patient Care Team Team Status: Active Member Role/Relationship Status Dates Cheyanne Timmons NP-Khloe Primary Care Provider Active Visit Care Team Team Status: Inactive Member Role/Relationship Status Dates Cheyanne Timmons NP-C Primary Care Provider Active Start: January 19, 2025 End: January 19, 2025MicMichael Mistry ProviderActiveStart: January 19, 2025 End: January 19, 2025 Visit Care Team Team Status: Inactive Member Role/Relationship Status Dates Cheyanne Timmons NP-C Primary Care Provider Active Start: February 16, 2025 End: February 16, 2025Michael Thomas ProviderActiveStart: February 16, 2025 End: February 16, 2025 Patient Care Team Team Status: Inactive Member Role/Relationship Status Dates Cheyanne Timmons NP-C Primary Care Provider Active Start: March 10, 2025 End: March 10, 2025Michael Thomas ProviderActiveStart: March 10, 2025 End: March 10, 2025 Chief Complaint and Reason for Visit Chief Complaint Admit Date D/C [facility] 01/11/2025 January 19, 2025 1: 23pm 4 week f/u February 16, 2025 1 2:58pm Reason for Visit Admit Date Left leg cellulitis January 19, 2025 1: 23pm Obesity January 19, 2025 1: 23pm Receiving intravenous antibiotic treatme nt as outpatient January 19, 2025 1:23pm Left leg cellulitis February 16, 2025 1 2:58pm Obesity February 16, 2025 1 2:58pm Allergies, Adverse Reactions, Alerts Allergen Type Severity Reaction Last Updated Verified Status chlorhexidine Allergy Unknown Unknown Reaction Novem 2024 1:48pm Yes Active Social History Smoking Status Status Start Date End Date Date of Observa tion Never smoked tobacco (finding) January 19, 2025 10:22am Observation Status Observation Response Date of Response Legal Sex [facility] (finding) [facility] 1985 Family History Relationship Condition Age at Onset Recorded Date/T elier father Unknown Heart diseaseUnknown Problems Active Problems Problem Diagnosis/Recorded Date Onset Date Stat us Left leg cellulitis January 19, 2025 8:42am Unknown Active Receiving intravenous antibi otic treatment as outpatient January 19, 2025 1:12pm Unknown Active Anxiety July 09, 2023 8:17am Unknown Acti ve Depression July 09, 2023 8:17am Unknown Acti ve GERD (gastroesophageal reflux disease) July 08 8:23am Unknown Active Obesity January 19, 2025 1:28pm Unknown Act jair Medications Medication Status Dose Units Route Directions Qty Days Refills S tart Date Stop Date End Date Reason(s) Instructions Adherence Linezolid 600 mg tablet Discontinued 600 MG PO Twi ce daily January 18, 2025 11:00pmJanuary 19, 2025 12:54pmErtapenem 1 gram recon soln Mosykpgpqbjt6YZJAUjcudSqikjfhlz 30th, 2025 11:00pmOctcar[facility] 2024 12:20pm Amoxicillin-Pot Clavulanate 875-125 mg fhibrtKunpiinakfmr8TCWHZKhvyr wyncw84818 January 18, 2025 11:00pmOctober 2024 12:20pmLinezolid 600 mg tablet Hsybvjpcabkc958HQJBWrsij obhgi96850Fkmgupg2024 12:54pmOctober 2024 12:20pmOmeprazole 40 mg capsule,delayed release(DR/EC)Vvbjkk62RHFVNhfnuNklwm 2023 11:00pmComplies with drug therapyFluoxetine 40 mg owqlsaqUsvfqi57NUXH DailyC[facility] 2023 11:00pmComplies with drug therapyAmoxicillin 500 mg hwnjrrrQktpuyjnrjhl532WRPRPdpnn times odoyo98598Mtktq 2023 11:00pmJanuary 2024 9:56amAmitriptyline 25 mg irmvaxQvjbng24XJZEIajrxAghefie 2024 12:00amComplies with drug therapyBenzonatate 200 mg ggkdoxtOnzbgkzlvjuz520WTVC8- 3 TIMES PER DAY as needed for nwwxp376WoyhaabMay 20, 2024 12:00amOctober 2024 8:55amFluticasone Propionate (Flonase Allergy Relief) 50 mcg/actuation spray,fxemhctzrdMzojwojgbaqt0VJQRWWPSSWKSGAQAwrwz79269Uejldun 2024 12:00am January 19, 2025 8:55amadminister into each nostrilCholecalciferol (Vitamin D3) 50 mcg (2,000 unit) ehfvwnjDjkfax7111DEFXEERnrysBqjptxp 2024 11:00pm Complies with drug therapycalcium carbonate (Calcium 500)ActivePOAleda E. Lutz Veterans Affairs [facility] 2024 11:00pmComplies with drug therapyMultivitamin cgiokqKwxssa1RETUCMurdc March 10, 2025 12:00amComplies with drug therapyLinezolid 600 mg tablet Qhutzl519OYBYAsuhb dailyAffinity [facility] Partners2024 12:00amComplies with drug therapy Oxycodone 5 mg dtjbamJplvgs2VRKGhi rtlejn3DztnxpanMarch 10, 2025 12:00amComplies with drug therapyFerrous Sulfate 324 mg (65 mg iron) tablet,delayed release (DR/EC)Kwgiew066ELWAMbkviOvxbuqsk 20th, 2025 12:00amComplies with drug therapy Melatonin 5 mg qfafwikOjapdw6HGYTlp neededAffinity Health Partners2024 12:00amComplies with drug therapy Vital Signs Vital Reading Result Reference Range Collection Date/Time Body Temperature 97.1 [degF] 97.6-99.0 January 12:30pm Heart Rate 91 /min 60-100 January 19 12:30pm BP Systolic 109 mm[Hg] 100-140 January 19 12:30pm BP Diastolic 76 mm[Hg] 60-100 January 19 12:30pm Height 65 [in_i] February 16, 2025 12:30buOkguqh089.85 kgOctcarroll county memorial hospital 2024 12:25pmBody Nghmnbyulzf35.8 [degF]97.6-99.0Octcarroll county memorial hospital 2024 12:25pmHeart Rate76 /tcm89-067 February 16, 2025 12:25pmBP Lywkabqd226 mm[Hg]100-140Octcarroll county memorial hospital 2024 12:25pm BP Glhedrzdc40 mm[Hg]60-100Octcarroll county memorial hospital 2024 12:25pmBMI (Body Mass Index)72.2 kg/u3Fdggkpa 2024 12:90eoClvjcu34 [in_i]March 10, 2025 1:56pmWeight 196.85 kgNov2024 1:56pmBody Dsdnmcypcmo57.2 [degF]97.6-99.0Nov2024 1:56pmHeart Xdsx936 /xgn69-971Nxpltrek 20th, 2025 1:56pmBP Systolic 134 mm[Hg]100-140Nov2024 1:56pmBP Ealztqeoq51 mm[Hg]60-100Nov2024 1:56pmBMI (Body Mass Index)72.2 kg/z3Wprzilkd2024 1:56pm Advance Directives Advance Directive Response Recorded Date/ Time Advance Directives No February 6:44am Insurance Providers Guarantor Marie Zee Address [address] [address]Xbgzxwx Info.Home Phone: Payer Group Member ID Coverage Type Subscriber Relationship to Subscriber Effective Date Expiration Date MMO Id: [id number] R [place] Id: [id number] [address] [address] Home Phone: [employer] BC/BS [id number] [place] Id: [id number] [address] [address] Home Phone: self Encounters Encounter Location(s) Arrival/Admit Date Discharge/Departure Date Discharge/Departure Disposition Provider(s) Departed Physician/ Provider Office Visit -[facility] Infect Dis January 19, 2025 1:23pm January 19, 2025 1:53pm Discharged to home care or self care (routine discharge) Riley Florence MD Departed Physician/ Provider Office Visit -[facility] Infect Dis February 16, 2025 12:58pm February 16, 2025 1:33pm Discharged to home care or self care (routine discharge) Riley Florence MD Departed Physician/ Provider Office Visit -[facility] Infect Dis March 10, 2025 1:48pm March 10, 2025 2:13pm Discharged to home care or self care (routine discharge) Riley Florence MD Recent Diagnosis Onset Date Admit Date Left leg cellulitis Unknown January 19, 2025 1:23pm Obesity Unknown January 19 1:23pm Receiving intravenous antibi otic treatment as outpatient Unknown January 19, 2025 1:23pm Left leg cellulitis Unknown January 12:58pm Obesity Unknown February 16 12:58pm Assessments Diagnosis Onset Date Resolution Status Admit Date Left leg cellulitis acuteOctober 2024 1:23pmObesityacuteOctober 2024 1:23pmReceiving intravenous antibiotic treatment as outpatientacuteOct2024 1:23pmLeft leg cellulitisacuteOctober 2024 12:58pmObesityacuteOctober 2024 12:58pm Plan of Treatment Author Riley Florence [facility] ClinicAuthoredOctober 2024 12:38pmOff oral abx now since this past Friday. LLE shows sig. signs of improvement. No active findings suggestive of active infection. Future Tests Future scheduled test information is unavailable Pending Tests Pending diagnostic test information is unavailable Future Visits Future appointment information is unavailable Future Procedures Future procedure information is unavailable Future Medications Future medication information is unavailable Patient Instructions Patient instructions are unavailable
--- OUTSIDE RECORDS SUMMARY | 2025-03-22 13:33 | XMS_ITS | Clinical Summary ---
Author Organization [facility] Address [address], [address] [place] [address] Care Team Providers Care Case Checker Name Role Phone Unavailable Primary Care Provider [...] DateRoutine follow-up05/20/2012 Immunizations ImmunizationAdministration DatesNext DueInfluenza Virus Knfyqck4504/11/2012TDaP, ADACEL (age 10y-64y), BOOSTRIX (age 10y+), IM, 0.5mL04/12/2012 Family History Medical HistoryRelationNameCommentsHeart DiseaseFatherCancerMaternal Grandfather CancerMaternal GrandmotherDiabetesMaternal GrandmotherRelationNameStatusComments FatherMaternal GrandfatherMaternal Grandmother Social History Tobacco UseTypesPacks/DayYears UsedDateSmoking Tobacco: FormerCigarettes0.36 Smokeless Tobacco: Never Tobacco Cessation:Ready to Q uit: No; Counseling Given: No Alcohol UseStandard Drinks/WeekCommentsNo0 (1 standard drink = 0.6 oz pure alcohol)CommentsNoSex and Gender InformationValueDate RecordedSex Assigned at BirthNot on fileLegal XzqHqqlqa91/10/2013 12:26 PM ESTGender IdentityNot on fileSexual OrientationNot on file Last Filed Vital Signs Vital SignReadingTime TakenCommentsBlood Gijqbird534/80005/20/2012 3:40 PM EST Bzcmt851804/12/2012 12:30 PM JKPLoxtrlebysu66.7 ??C (98 ??F)04/12/2012 12:30 PM ESTRespiratory Zpde703106/13/2011 12:30 PM ESTOxygen Vktbiwxwkk57%04/09/2012 12:37 PM ESTInhaled Oxygen Concentration--Ccnhdo983.2 kg (265 lb)05/20/2012 3:40 PM XHNZqzggg858.1 cm (5' 5 )05/20/2012 3:40 PM ESTBody Mass Index44. 3:40 PM EST Plan of Treatment Not on file Advance Directives * Full Code (Latest Code Status on File) Date ActivatedDate ZkuprfjssvhMefxnslh96/20/2012 12:29 PM04/12/2012 6:06 PM * Full Code Date ActivatedDate MvqujmohlmmSbuihuxo48/20/2012 6:47 AM04/09/2012 12:29 PM
[2025-03-22 14:00] LABS: Hematocrit 36.8 % (36.0-48.0); Hemoglobin 11.7 g/dL (12.0-16.0); Immature Granulocytes Abs Auto 0.02 10^3/uL (0.00-0.03); Immature Granulocytes Pct Auto 0.3 % (0.0-0.5); Lymphocytes Absolute Auto 1.9 10^3/uL (1.2-3.8); Mean Corpuscular HGB Conc 31.8 g/dL (29.9-35.2); Mean Corpuscular Hemoglobin 26.7 pg (26.7-34.0); Mean Corpuscular Volume 84.0 fL (81.0-99.0); Platelet Count 217 10^3/uL (150-450); Red Blood Count 4.38 10^6/uL (4.20-5.40); White Blood Count 7.0 10^3/uL (4.0-11.0)
[2025-03-22 14:30] LABS: Anion Gap 11.7; Blood Urea Nitrogen 9.0 mg/dL (7.0-18.0); Calcium 8.7 mg/dL (8.5-10.1); Carbon Dioxide 27.0 mmol/L (21.0-32.0); Chloride 105 mmol/L (98-107); Estimated GFR (African America >60 (>=60 mL/min/1.73m^2); Estimated GFR (Non-African Ame >60 (>=60 mL/min/1.73m^2); Glucose 97 mg/dL (74-106); Potassium 3.7 mmol/L (3.5-5.1); Sodium 140 mmol/L (136-145)
== END 2025-03-22 13:28 | disposition home or self-care (01) ==
PROVIDERS: PCP Nurse Practitioner Family; Visit Provider Internal Medicine
DX: L03.90 Cellulitis, unspecified (principal)
CPT/HCPCS: 36415; 80048; 85025; 86140